=== PATIENT | female | born 1955 ===

== ENCOUNTER 2020-03-19 09:57 | Outpatient (REF) | payer MEDICARE, SELFPAY ==
[2020-03-19 13:48] LABS: Hematocrit 39.7 % (37-47); Mean Corpuscular HGB Conc 32.7 g/dl (31.0-35.0); Mean Corpuscular Hemoglobin 27.1 pg (27.0-33.0); Mean Corpuscular Volume 82.9 fL (80-98); Platelet Count 376 X10*3/uL (160-400); Red Blood Count 4.79 X10*6/uL (4.20-5.50); Red Cell Distribution Width 14.3 % (11.0-16.0)
[2020-03-19 14:22] LABS: Alanine Aminotransferase 18 U/L (0-31); Albumin Level 4.3 g/dL (3.5-5.0); Alkaline Phosphatase 100 U/L (39-117); Aspartate Amino Transferase 33 U/L (5-31); Bilirubin Direct 0.3 mg/dL (0.0-0.5); Bilirubin Total 0.7 mg/dL (0.0-1.0); Lipase 15 U/L (8-78); Total Protein 7.5 g/dL (6.5-8.0)
== END 2020-03-19 09:58 | disposition home or self-care (01) ==
LOC: HO.10HDL 09:57
PROVIDERS: Visit Provider Internal Medicine Gastroenterology
DX: R10.84 Generalized abdominal pain (principal)
CPT/HCPCS: 36415; 80076; 83690; 85027

== ENCOUNTER 2020-03-23 09:00 | Day surgery (SDC) | payer MEDICARE, SELFPAY ==
--- NOTE | 2020-03-22 12:24 | HO.ANESPROP2 ---
Documented by User: Rashmi Ballesteros 03/22/20 12:25 HPI - Anesthesia Eval Consult details Narrative: 64yo F for Upper Endoscopy and Colonoscopy [facility] Past Medical History Medical History No significant past medical history Surgical History Surgical History History of arthroplasty of right shoulder Social History Social History Smoking Status: Former smoker Smoked in Last 30 Days: No Use of substances other than those prescribed or required for medical reasons: No Advance Directives: No Advance Directives Information Provided: Yes Recently lost weight without trying: No Meds Allergies Allergy/AdvReac Type Severity Reaction Status Date / Time No Known Allergies Allergy Unverified 12/18/19 19:51 [No Known Allergies*] Home Medications Medication Instructions Recorded Confirmed Type No Known Home Meds 03/22/20 03/22/20 History Exam Exam Date and Time: March 22, 2020 1224 Pertinent Lab Results Pertinent Lab Results: Laboratory Tests 03/19/20 10:18 WBC 11.0 H Hgb 13.0 Hct 39.7 Plt Count 376 Assessment and Plan Assessment Anesthesia Assessment: Chart Reviewed Documented by User: Estefani Meeks 03/23/20 10:22 [facility] Past Medical History Medical History No significant past medical history Surgical History Surgical History History of arthroplasty of right shoulder Social History Social History Smoking Status: Former smoker Smoked in Last 30 Days: No Use of substances other than those prescribed or required for medical reasons: No Advance Directives: No Advance Directives Information Provided: Yes Recently lost weight without trying: No Meds Allergies Allergy/AdvReac Type Severity Reaction Status Date / Time No Known Allergies Allergy Unverified 12/18/19 19:51 [No Known Allergies*] Home Medications Medication Instructions Recorded Confirmed Type No Known Home Meds 03/22/20 03/22/20 History Exam Airway Mallampati Class: I TM Dist: >3cm Neck ROM: Full Loose/Missing/Broken Teeth: No Heart: RRR Lungs: CTA Assessment and Plan Assessment Anesthesia Assessment: Anesthesia Plan Discussed and Chart Reviewed Final Anesthetic Review NPO: Yes ASA Class: II Final Preanesthetic Review: Meds/Allgs Chart Reviewed, Consent Obtained/Reviewed and Anes Risks/Benef Reviewed Patient Risk: Low Procedure Risk: Intermediate Anesthetic Plan Anesthetic Plan: MAC: Disposition: Standard PACU
--- NOTE | 2020-03-22 19:16 | PM.EVENT ---
Event Note Date of Service: 03/22/20 Event Note: Scheduled for an EGD and Colonoscopy on 03/23/20 for decreased PO intake, weight loss and rectal bleeding Pt states she is on a liquid diet since last sunday - just had 3 tablespoonful of rice. Took dulcolax and had vomiting/dry heaves. Took Miralax - about 40 ounces and had vomiting. Getting ready to take additional dulcolax. Last BM was an hour ago was very loose without any fecal matter. Pt was advised to continue clear liquids and try to take at least half of the Miralax prep Can consider giving her an enema on arrival
[2020-03-23 09:43] VITALS: BMI 28.5
[2020-03-23 09:49] VITALS: BP 148/79; PULSE 77; RESP 16; TEMP 36.2; O2SAT 97
[2020-03-23] MEDS: Lactated Ringers 1,000 ML 100 ML IVCONT (10:03)
--- NOTE | 2020-03-23 10:05 | PC.NURSE ---
PATIENT RIGHT HAND STARTED A HEMATOMA FROM IV INSERTION WITH BRUISING NO INFILTRATION. APPLIED ICE PACK.
--- NOTE | 2020-03-23 10:22 | P.CONAN_ITS ---
[facility] Past Medical History Medical History No significant past medical history Surgical History Surgical History History of arthroplasty of right shoulder Social History Social History Smoking Status: Former smoker Smoked in Last 30 Days: No Use of substances other than those prescribed or required for medical reasons: No Advance Directives: No Advance Directives Information Provided: Yes Recently lost weight without trying: No Meds Allergies Allergy/AdvReac Type Severity Reaction Status Date / Time No Known Allergies Allergy Unverified 12/18/19 19:51 [No Known Allergies*] Home Medications Medication Instructions Recorded Confirmed Type No Known Home Meds 03/22/20 03/22/20 History Exam Exam Date and Time: March 23, 2020 1022 Height,Weight and Vital Signs: Height 5 ft 4 in Weight 75.296 kg Last Vital Signs Temp 97.2 F 03/23/20 09:49 Pulse 77 03/23/20 09:49 Resp 16 03/23/20 09:49 BP 148/79 H 03/23/20 09:49 Pulse Ox 97 03/23/20 09:49 Airway Mallampati Class: I TM Dist: >3cm Loose/Missing/Broken Teeth: No Heart: RRR Lungs: CTA Assessment and Plan Assessment Anesthesia Assessment: Anesthesia Plan Discussed and Chart Reviewed Final Anesthetic Review NPO: Yes ASA Class: II Final Preanesthetic Review: Meds/Allgs Chart Reviewed, Consent Obtained/Reviewed and Anes Risks/Benef Reviewed Patient Risk: Low Procedure Risk: Intermediate Anesthetic Plan Anesthetic Plan: MAC: Disposition: Standard PACU
--- NOTE | 2020-03-23 10:39 | MHC.SHP ---
Pre-Procedural Eval Section A The patient is an INPATIENT: No Changes since office visit: No Cold of Flu in the past 2 weeks, No New Medical Problems, No Changes in Medication and No Patient answered all questions The History & Physical has been completed within 30 days and I have reviewed it.: Yes Section B Chief Complaint: abdominal pain,weight loss Allergies: Allergies Allergy/AdvReac Type Severity Reaction Status Date / Time No Known Allergies Allergy Unverified 12/18/19 19:51 [No Known Allergies*] Plan I have reviewed the history and physical and performed a pertinent physical examination on my patient. No changes have occurred unless specified.
[2020-03-23 11:14] VITALS: BP 113/63; PULSE 80; RESP 16; TEMP 36.1; O2SAT 99
--- NOTE | 2020-03-23 11:18 | PM.OP ---
Brief Operative Note Date of Service: 03/23/20 Pre-op diagnosis: ABDOMINAL PAIN WEIGHT LOSS Post-op diagnosis: same (EROSIVE GASTRITIS, COLON POLYP) Procedure: EGD/COLONOSCOPY Surgeon: Julien Jordan Anesthesia: MAC Estimated blood loss (mL): 5 Pathology: other (BIOPSIES EGJ, ANTRUM, DUODENUM, POLYP CECUM) Condition: stable
[2020-03-23 11:29] VITALS: BP 128/75; PULSE 80; RESP 13; TEMP 36.1; O2SAT 97
--- NOTE | 2020-03-23 11:36 | OP_ITS ---
SURGEON: Julien Jordan MD INDICATIONS: Abdominal pain and weight loss. PREOPERATIVE DIAGNOSIS: POSTOPERATIVE DIAGNOSIS: PROCEDURE PERFORMED: 1. Upper endoscopy with biopsy. 2. Colonoscopy to the terminal ileum with biopsy. ESTIMATED BLOOD LOSS: COMPLICATIONS: ANESTHESIA: ASSISTANTS: SPECIMENS: MEDICATIONS: Monitored anesthesia care. DESCRIPTION OF PROCEDURE: History and physical performed. The risks and benefits of the procedure were explained to the patient. Informed consent was obtained. The patient was placed in the left lateral decubitus position. A digital rectal exam was performed prior to the colonoscopy. The Olympus video gastroscope was introduced into the esophagus, stomach, and duodenum. Examination was performed and the scope was removed. She was repositioned for colonoscopy. Digital rectal exam was performed and was found to be normal. The Olympus pediatric video colonoscope was introduced into the rectum and advanced to the cecum without difficulty. The cecum was identified by transillumination, palpation, and identification of ileocecal valve. Examination was performed and the scope was removed. She tolerated both procedures well and was taken to recovery area in stable condition. FINDINGS: UPPER ENDOSCOPY: Esophagus: The esophagus was normal. Biopsies were obtained from the EG junction. There was no esophagitis. Stomach: The stomach showed antral erosions with gastritis. Biopsies were obtained from the antrum. Duodenum: The bulb and second portion were normal. Biopsies were obtained from the second portion. COLONOSCOPY: The terminal ileum was normal. The visualized colonic mucosa was within normal limits without evidence of masses or ulcers. A single polyp in the cecum measuring less than 5 mm was removed with biopsy forceps. No other polyps were identified. Retroflexed examination showed internal hemorrhoids that were moderately large. The quality of the prep was good. IMPRESSION: 1. Erosive gastritis. 2. Colon polyp. RECOMMENDATION: Follow up the biopsy results. MD NELLY Erickson/SHELDON / [phone]
--- NOTE | 2020-03-23 11:39 | HO.POSTANES ---
Post Anesthesia Evaluation Post Anesthesia Evaluation Vital Signs: Vital Signs Temp Pulse Resp BP Pulse Ox 03/23/20 11:29 97 F 80 13 128/75 97 03/23/20 11:14 97 F 80 16 113/63 99 03/23/20 09:49 97.2 F 77 16 148/79 H 97 Anesthesia: Monitored Mental Status: Awake Pain Control: Satisfactory Nausea/Vomiting: None Hydration: Adequate Anesthesia-Related Issues: No Anes. Related Issues
== END 2020-03-23 12:15 | disposition home or self-care (01) ==
PROVIDERS: Visit Provider Internal Medicine Gastroenterology
PROC: (CPT 45380; principal; 2020-03-23 11:10)
DX: D12.0 Benign neoplasm of cecum (principal); K64.8 Other hemorrhoids; R63.4 Abnormal weight loss; K29.60 Other gastritis without bleeding; R10.84 Generalized abdominal pain
CPT/HCPCS: 45380; 43239; 88305; 88342

== ENCOUNTER 2020-10-14 14:23 | Outpatient (REF) | payer MEDICARE, SELFPAY ==
--- NOTE | ~2020-10-14 | US_ITS ---
EXAMINATION: US ABDOMEN COMPLETE CLINICAL INFORMATION: Right upper quadrant pain. COMPARISON: None TECHNIQUE: Real-time imaging of the abdominal viscera. FINDINGS: PANCREAS: There is a 6 mm echogenic focus in the neck of the pancreas questionable for a calcification. Pancreas is otherwise unremarkable. ABDOMINAL AORTA: The proximal, mid, and distal segments are normal in caliber. INFERIOR VENA CAVA: Visualized portions are normal. LIVER: Normal. The liver contour is normal. Parenchymal echogenicity is normal. No focal hepatic lesion. There is no intrahepatic biliary duct dilatation seen. GALLBLADDER: Normal. The gallbladder is physiologically distended without evidence of stones, sludge, polyps, wall thickening or pericholecystic fluid. COMMON BILE DUCT: Normal in caliber measuring 0.6 cm in diameter. RIGHT KIDNEY: There is a 4 mm echogenic density in the upper pole questionable for a stone. No hydronephrosis. The kidney measures 10.1 cm in maximum dimension. LEFT KIDNEY: There is a 1 cm cyst in the midpole. No hydronephrosis or renal calculi. The kidney measures 10.1 cm in maximum dimension. SPLEEN: Normal. The spleen measures 9.8 cm in maximum dimension. FREE FLUID: None. US/US abdomen complete IMPRESSION: 6 mm echogenic focus in the neck of the pancreas questionable for calcification. Question right renal stone. Small left renal cyst.
[2020-10-14 16:36] LABS: MANUAL DIFF FLAG NO
[2020-10-14 16:39] LABS: Basophils Absolute Auto 0.1 X10*3/uL (0.0-0.2); Basophils Percent Auto 0.9 % (0-2); Eosinophils Absolute Auto 0.2 X10*3/uL (0.0-0.4); Eosinophils Percent Auto 2.4 % (0-4); Hematocrit 38.7 % (37-47); Hemoglobin 12.3 g/dl (12.0-16.0); Imm Gran Abs Auto 0.02 X10*3/uL (0.00-0.03); Imm Gran Pct Auto 0.2 % (0.0-0.4); Lymphocytes Absolute Auto 2.3 X10*3/uL (1.2-4.9); Lymphocytes Percent Auto 27.4 % (20-40); Mean Corpuscular HGB Conc 31.8 g/dl (31.0-35.0); Mean Corpuscular Hemoglobin 27.3 pg (27.0-33.0); Mean Corpuscular Volume 85.8 fL (80-98); Mean Platelet Volume 10.7 fL (9.4-12.3); Monocytes Absolute Auto 0.6 X10*3/uL (0.1-1.2); Monocytes Percent Auto 7.4 % (2-11); Neutrophils Absolute Auto 5.1 X10*3/uL (2.0-8.3); Neutrophils Percent Auto 61.7 % (45-73); Platelet Count 321 X10*3/uL (160-400); Red Blood Count 4.51 X10*6/uL (4.20-5.50); Red Cell Distribution Width 13.7 % (11.0-16.0); White Blood Count 8.2 X10*3/uL (4.8-10.8)
[2020-10-14 17:22] LABS: Alanine Aminotransferase 10 U/L (0-31); Albumin Level 3.9 g/dL (3.5-5.0); Alkaline Phosphatase 94 U/L (39-117); Aspartate Amino Transferase 18 U/L (5-31); Bilirubin Direct 0.2 mg/dL (0.0-0.5); Bilirubin Total 0.6 mg/dL (0.0-1.0); Lipase 11 U/L (8-78); Total Protein 6.9 g/dL (6.5-8.0)
== END 2020-10-14 14:24 | disposition home or self-care (01) ==
LOC: HO.HMGCX 14:23
PROVIDERS: Visit Provider Internal Medicine Gastroenterology
DX: R10.11 Right upper quadrant pain (principal)
CPT/HCPCS: 36415; 76700; 80076; 83690; 85025

== ENCOUNTER 2021-04-11 22:51 | Emergency (ER) | payer MEDICARE, SELFPAY ==
--- NOTE | ~2021-04-11 | XR_ITS ---
EXAMINATION: XR CHEST CLINICAL INFORMATION: Palpitations COMPARISON: None TECHNIQUE: Frontal view of the chest was obtained. FINDINGS: No significant abnormality is noted involving the heart, lungs, mediastinum, bony thorax or soft tissues. XR/XR chest 1V IMPRESSION: Unremarkable examination.
--- NOTE | 2021-04-11 22:52 | ECG_ITS ---
Test Reason : palpatations Blood Pressure : / mmHG Vent. Rate : 076 BPM Atrial Rate : 076 BPM P-R Int : 158 ms QRS Dur : 112 ms QT Int : 424 ms P-R-T Axes : 075 -08 055 degrees QTc Int : 477 ms Normal sinus rhythm Minimal voltage criteria for LVH, may be normal variant ( [employer] product ) Borderline ECG No previous ECGs available Referred By: Generic ED Physician Electronically Signed By:TARYN EATON
[2021-04-11 23:20] VITALS: BP 183/88; PULSE 80; RESP 20; TEMP 35.9; O2SAT 97; BMI 29.2
[2021-04-11 23:51] LABS: MANUAL DIFF FLAG NO
[2021-04-11 23:52] LABS: Basophils Percent Auto 0.6 % (0-2); Eosinophils Absolute Auto 0.1 X10*3/uL (0.0-0.4); Eosinophils Percent Auto 1.8 % (0-4); Hematocrit 40.1 % (37.0-47.0); Hemoglobin 13.3 g/dl (12.0-16.0); Imm Gran Abs Auto 0.01 X10*3/uL (0.00-0.03); Imm Gran Pct Auto 0.2 % (0.0-0.4); Lymphocytes Absolute Auto 2.5 X10*3/uL (1.2-4.9); Lymphocytes Percent Auto 45.7 % (20-40); Mean Corpuscular HGB Conc 33.2 g/dl (31.0-35.0); Mean Corpuscular Hemoglobin 27.5 pg (27.0-33.0); Mean Corpuscular Volume 82.9 fL (80.0-98.0); Mean Platelet Volume 9.7 fL (9.4-12.3); Monocytes Absolute Auto 0.6 X10*3/uL (0.1-1.2); Monocytes Percent Auto 11.8 % (2-11); Neutrophils Absolute Auto 2.2 x10*3/uL (2.0-8.3); Neutrophils Percent Auto 39.9 % (45-73); Platelet Count 277 X10*3/uL (160-400); Red Blood Count 4.84 X10*6/uL (4.20-5.50); Red Cell Distribution Width 13.3 % (11.0-16.0); White Blood Count 5.4 X10*3/uL (4.8-10.8)
[2021-04-12 00:05] LABS: Anion Gap 13 (12-20); Blood Urea Nitrogen 19 mg/dL (9-16); COVID-19 Test Positive (Negative); Carbon Dioxide 28 mmol/L (22-29); Chloride 101 mmol/L (96-108); Creatinine Clr Calc Pharmacy 30.1; Estimated Glomerular Filt Rate 29; Glucose Random 120 mg/dL (60-115); Potassium 3.6 mmol/L (3.3-5.1); Sodium 138 mmol/L (135-145)
[2021-04-12 00:12] LABS: Troponin-I High Sensitivity 17.5 ng/L (<3.5-17.0)
== END 2021-04-12 01:53 | disposition left against medical advice (07) ==
PROVIDERS: Emergency Provider Emergency Medicine
DX: U07.1 COVID-19 (principal); R00.2 Palpitations
CPT/HCPCS: 36415; 71045; 80048; 84484; 85025; 87635; 93005; 99283; 99284

== ENCOUNTER 2021-06-07 10:28 | Outpatient (REF) | payer MEDICARE, SELFPAY ==
--- NOTE | ~2021-06-07 | MM_ITS ---
EXAMINATION: MM SCREENING DIGITAL BREAST TOMOSYNTHESIS, BILATERAL CLINICAL INFORMATION: Screening. Asymptomatic. The lifetime risk of breast cancer based on the Tyrer-Cuzick Model is 6%. COMPARISON: Outside breast imaging: mammography 04/09/2019, 06/19/2018, 05/28/2018 and targeted left breast ultrasound 06/19/2018 and 04/09/2019 ([facility], [place]). TECHNIQUE: Digital breast tomosynthesis is performed in both the craniocaudal and mediolateral oblique views along with computer-aided detection (CAD). Synthesized 2D images are generated from the tomosynthesis. FINDINGS: There are scattered areas of fibroglandular density (ACR BI-RADS breast composition Category b). There are no significant masses, abnormal calcifications, or other abnormalities. Parenchymal pattern is similar to prior studies. There is no developing density or architectural abnormality. The complicated cyst left retroareolar region has resolved. The axilla and skin contours are unremarkable. No significant changes. MM/MM tomosynthesis screening BI IMPRESSION: No mammographic evidence of malignancy. ASSESSMENT: BI-RADS 2: Benign RECOMMENDATION: Routine annual mammography screening. This patient's information was entered into a reminder system with a target due date for their next mammogram.
[2021-06-07 13:37] LABS: Cholesterol 281 mg/dL; HDL Cholesterol 39 mg/dL; LDL Cholesterol Calculated 176 mg/dl; Triglycerides 330 mg/dL
== END 2021-06-07 10:29 | disposition home or self-care (01) ==
LOC: HO.MAMMO 10:28
PROVIDERS: Visit Provider Internal Medicine
DX: Z00.00 Encounter for general adult medical examination without abnormal findings (principal); Z12.31 Encounter for screening mammogram for malignant neoplasm of breast; R10.11 Right upper quadrant pain
CPT/HCPCS: 36415; 77063; 77067; 80061

== ENCOUNTER 2021-09-23 09:36 | Outpatient (REF) | payer MEDICARE, SELFPAY ==
[2021-09-23 10:40] LABS: Alanine Aminotransferase 16 U/L (0-31); Albumin Level 4.1 g/dL (3.5-5.0); Alkaline Phosphatase 103 U/L (39-117); Anion Gap 11 (12-20); Aspartate Amino Transferase 28 U/L (5-31); Bilirubin Total 0.6 mg/dL (0.0-1.0); Blood Urea Nitrogen 16 mg/dL (9-16); Calcium 9.4 mg/dL (8.4-10.2); Carbon Dioxide 29 mmol/L (22-29); Chloride 105 mmol/L (96-108); Cholesterol 262 mg/dL; Estimated Glomerular Filt Rate 49; Glucose Fasting 112 mg/dL (60-99); HDL Cholesterol 41 mg/dL; LDL Cholesterol Calculated 184 mg/dl; Potassium 5.2 mmol/L (3.3-5.1); Sodium 140 mmol/L (135-145); Total Protein 7.4 g/dL (6.5-8.0); Triglycerides 186 mg/dL
== END 2021-09-23 09:37 | disposition home or self-care (01) ==
LOC: HO.LAB 09:36
PROVIDERS: PCP Internal Medicine; Visit Provider Internal Medicine
DX: E78.2 Mixed hyperlipidemia (principal)
CPT/HCPCS: 36415; 80053; 80061

== ENCOUNTER → 2021-11-22 12:48 | Outpatient (BNVA) | payer MEDICARE, SELFPAY | PROVIDERS: PCP Internal Medicine; Visit Provider Surgery Vascular Surgery | DX: I83.11 Varicose veins of right lower extremity with inflammation (principal) | CPT/HCPCS: 99202 ==

== ENCOUNTER 2021-12-29 13:06 | Outpatient (REF) | payer MEDICARE, SELFPAY ==
--- NOTE | ~2021-12-29 | US_ITS ---
EXAMINATION: US PELVIS CLINICAL INFORMATION: Early satiety with abdominal distention. COMPARISON: None TECHNIQUE: Ultrasound of the pelvis is performed using both transabdominal and transvaginal transducers along with Doppler. Transvaginal imaging is performed due to inadequate visualization transabdominally. FINDINGS: Uterus: The uterus is anteverted, anteflexed and measures 6.6 cm in length, 2.0 cm in AP and 3.9 cm in transverse dimension. The double wall endometrial thickness is 0.4 cm. The uterus is smooth in contour and has heterogeneous echogenicity. No visible fibroid. Adnexa: Both ovaries are visualized. There is normal color flow to the adnexa. There is no ovarian torsion. There is no pelvic ascites or fluid collection. Right ovary measures 1.8 x 1.1 x 1.4 cm and volume 1.5 mL. There are small scattered calcifications. Left ovary measures 1.8 x 1.5 x 1.2 cm and volume 2.3 mL. US/US pelvic and transvaginal IMPRESSION: Heterogeneous uterus but no focal lesion seen. Punctate calcification in the right ovary. Otherwise both ovaries are unremarkable. There is no free fluid in the cul-de-sac.
--- NOTE | ~2021-12-29 | MM_ITS ---
EXAMINATION: BONE DENSITOMETRY CLINICAL INDICATION: Asymptomatic menopausal state. COMPARISON: None (current study represents initial baseline exam). TECHNIQUE: Using a [employer] DXA System (software version: 13.1) manufactured by [employer], dual-energy x-ray absorptiometry was performed of the lumbar spine and left hip. The images are of good technical quality. Summary results are attached. FINDINGS: AP SPINE L1-L3 (excluding L4): The data of L1-L4 has been changed to exclude the L4 vertebral body because degenerative changes at these levels may cause overestimation of the lumbar spine density. BMD 1.345 g/cm2, Z-score 2.7, T-score 1.5, normal. LEFT FEMUR, NECK: BMD 0.957 g/cm2, Z-score 0.7, T-score -0.6, normal. LEFT FEMUR, TOTAL: BMD 1.072 g/cm2, Z-score 1.5, T-score 0.5, normal. IDENTIFIED RISK FACTORS: Low calcium intake, menopause. HISTORY OF FRACTURE: None listed. MEDICATIONS: Multivitamin. MM/XR DEXA axial skeleton IMPRESSION: 1. DIAGNOSIS: Normal bone density based on the lowest T-score value of -0.6 in the femoral neck applying World Health Organization criteria. 2. 10-YEAR FRACTURE RISK PREDICTION, FRAX: According to the guidelines, FRAX calculation should only be performed on patients in the osteopenia bone density category. Therefore, FRAX was not performed on this patient. 3. Treatment Recommendations: NOF guidelines recommend consideration for treatment in postmenopausal women and men age 50 and older presenting with the following: -A hip or vertebral (clinical or morphometric) fracture. -T-score less than or equal to -2.5 at the femoral neck or spine after appropriate evaluation to exclude secondary causes. -Low bone mass at the hip or spine and a 10-year fracture probability by FRAX of greater than or equal to 3% for hip fracture or greater than or equal to 20% for major osteoporotic fracture based on the [place] adapted WHO algorithm. 4. Other Recommendations: All treatment decisions require clinical judgment and consideration of individual patient factors, including patient preferences, comorbidities, previous drug use, risk factors not captured in the FRAX model (e.g. frailty, falls, vitamin D deficiency, increased bone turnover, interval significant decline in bone density) and possible under or overestimation of fracture risk by FRAX. FUTURE SCAN RECOMMENDATION: People with diagnosed cases of osteoporosis or at high risk for fracture should have regular bone mineral density tests. For patients eligible for Medicare, routine testing is allowed once every 2 years. The testing frequency can be increased to one year for patients who have rapidly progressing disease, those who are receiving or discontinuing medical therapy to restore bone mass, or have additional risk factors.
== END 2021-12-29 13:07 | disposition home or self-care (01) ==
LOC: HO.US 13:06
PROVIDERS: Visit Provider Obstetrics & Gynecology
DX: Z13.820 Encounter for screening for osteoporosis (principal); Z78.0 Asymptomatic menopausal state; R68.81 Early satiety
CPT/HCPCS: 76830; 76856; 77080

== ENCOUNTER → 2022-01-04 10:01 | Outpatient (BNVA) | payer MEDICARE, SELFPAY | PROVIDERS: PCP Internal Medicine; Referring Provider Internal Medicine; Visit Provider Internal Medicine Cardiovascular Disease | DX: R00.2 Palpitations (principal); R07.89 Other chest pain; E78.5 Hyperlipidemia, unspecified | CPT/HCPCS: 93005; 99202 ==

== ENCOUNTER 2022-01-18 06:26 | Emergency (ER) | payer MEDICARE, SELFPAY ==
--- NOTE | 2022-01-18 06:35 | ECG_ITS ---
Test Reason : HYPERTENSION Blood Pressure : / mmHG Vent. Rate : 083 BPM Atrial Rate : 083 BPM P-R Int : 156 ms QRS Dur : 100 ms QT Int : 392 ms P-R-T Axes : 068 -08 055 degrees QTc Int : 460 ms Normal sinus rhythm Normal ECG When compared with ECG of 11-APR-2021 23:37, No significant change was found Referred By: Generic ED Physician Electronically Signed By:SARAHI GALLEGOS MD
[2022-01-18 07:05] LABS: Hematocrit 40.4 % (37.0-47.0); Hemoglobin 13.3 g/dl (12.0-16.0); Mean Corpuscular HGB Conc 32.9 g/dl (31.0-35.0); Mean Corpuscular Hemoglobin 27.1 pg (27.0-33.0); Mean Corpuscular Volume 82.4 fL (80.0-98.0); Mean Platelet Volume 9.8 fL (9.4-12.3); Platelet Count 316 X10*3/uL (160-400); Red Cell Distribution Width 13.9 % (11.0-16.0); White Blood Count 8.9 X10*3/uL (4.8-10.8)
[2022-01-18 07:21] LABS: Alanine Aminotransferase 19 U/L (0-31); Albumin Level 4.3 g/dL (3.5-5.0); Alkaline Phosphatase 101 U/L (39-117); Anion Gap 16 (12-20); Aspartate Amino Transferase 23 U/L (5-31); Bilirubin Total 0.5 mg/dL (0.0-1.0); Blood Urea Nitrogen 13 mg/dL (9-16); Calcium 9.4 mg/dL (8.4-10.2); Carbon Dioxide 25 mmol/L (22-29); Chloride 105 mmol/L (96-108); Estimated Glomerular Filt Rate 55; Glucose Random 128 mg/dL (60-115); Potassium 4.3 mmol/L (3.3-5.1); Sodium 142 mmol/L (135-145); Total Protein 7.5 g/dL (6.5-8.0)
[2022-01-18 07:29] VITALS: BP 151/94; PULSE 87; RESP 16; TEMP 37.1; O2SAT 99; BMI 30.1
== END 2022-01-18 10:41 | disposition left against medical advice (07) ==
PROVIDERS: Emergency Provider Emergency Medicine; PCP Internal Medicine
DX: R00.2 Palpitations (principal); I10 Essential (primary) hypertension; R51.9 Headache, unspecified; E78.5 Hyperlipidemia, unspecified
CPT/HCPCS: 36415; 80053; 85027; 93005; 99283

== ENCOUNTER 2022-01-18 09:14 | Outpatient (REF) | payer MEDICARE, SELFPAY ==
[2022-01-18 10:09] LABS: Cholesterol 273 mg/dL; HDL Cholesterol 44 mg/dL; LDL Cholesterol Calculated 174 mg/dl; Triglycerides 276 mg/dL
[2022-01-18 10:10] LABS: Alanine Aminotransferase 19 U/L (0-31); Albumin Level 4.4 g/dL (3.5-5.0); Alkaline Phosphatase 102 U/L (39-117); Anion Gap 16 (12-20); Aspartate Amino Transferase 22 U/L (5-31); Bilirubin Total 0.5 mg/dL (0.0-1.0); Blood Urea Nitrogen 13 mg/dL (9-16); Calcium 9.8 mg/dL (8.4-10.2); Carbon Dioxide 26 mmol/L (22-29); Chloride 104 mmol/L (96-108); Estimated Glomerular Filt Rate 52; Glucose Random 112 mg/dL (60-115); Potassium 4.7 mmol/L (3.3-5.1); Sodium 141 mmol/L (135-145); Total Protein 7.7 g/dL (6.5-8.0)
== END 2022-01-18 09:15 | disposition home or self-care (01) ==
LOC: HO.LAB 09:14
PROVIDERS: PCP Internal Medicine; Visit Provider Internal Medicine
DX: E78.2 Mixed hyperlipidemia (principal); I10 Essential (primary) hypertension; R07.89 Other chest pain; Z91.14 Patient's other noncompliance with medication regimen
CPT/HCPCS: 36415; 80053; 80061

== ENCOUNTER → 2022-01-23 07:15 | Outpatient (REF) | payer MEDICARE, SELFPAY ==
--- NOTE | 2022-01-23 07:21 | HM_ITS ---
Conclusion: 1. Patient was monitored for total period of 2 days and 23 hours 2. Baseline was normal sinus rhythm with average heart rate of 75 beats per minute 3. No significant pauses or bradycardia noted 4. Very rare ectopy noted 5. Patient reported events correlated with normal sinus rhythm MTDD
--- NOTE | 2022-01-23 07:21 | CA_ITS ---
Acquisition Time: 2022-01-23 08:10:10 Total Exercise Time: 00:06:30 Test Indications: Palpitations Medications: SEE CHART Protocol: MIO Max HR: 157 BPM 102% of Pred: 153 BPM Max BP: 240/088 mmHG Max Work Load: 7.7 METS Exercise stress test with exercise 6 min 30 sec of Mio protocol, achieving 102% MPHR, with moderate sob, no chest discomfort, with isolated PACs, with hypertensive response to exercise with max BP 240/88, without EKG changes meeting criteria for ischemia. In recovery her breathing normalized and BP returned to 162/88. Baseline BP was 152/82, Test reviewed with Dr Saavedra Referred By: Eric Saavedra Overread By: LAMBERT MACHADO
== END ==
LOC: HO.CARD 07:15
PROVIDERS: PCP Internal Medicine; Visit Provider Internal Medicine Cardiovascular Disease
DX: R07.89 Other chest pain (principal); R00.2 Palpitations
CPT/HCPCS: 93017; 93242

== ENCOUNTER → 2022-02-08 14:21 | Outpatient (BNVA) | payer MEDICARE, SELFPAY | PROVIDERS: PCP Internal Medicine; Visit Provider Internal Medicine Cardiovascular Disease | DX: I10 Essential (primary) hypertension (principal); R00.2 Palpitations; R51.9 Headache, unspecified; E78.5 Hyperlipidemia, unspecified | CPT/HCPCS: 99212 ==

== ENCOUNTER → 2022-03-01 07:54 | Outpatient (REF) | payer MEDICARE, SELFPAY ==
--- NOTE | ~2022-03-01 | NM_ITS ---
EXAMINATION: BILIARY TRACT IMAGING STUDY WITH CCK CLINICAL INFORMATION: Right upper quadrant pain.. COMPARISON: No previous biliary scan is available for comparison.. Abdominal ultrasound dated 10/14/2020 is the most recent relevant study for comparison. TECHNIQUE: Serial gamma scintillation camera images were obtained over the abdomen for a total observation period of 90 minutes following the intravenous administration of 5.0 mCi Tc-99m Mebrofenin. FINDINGS: There is good concentration of activity in the liver by 5 minutes post injection. Biliary activity is visualized by 15 minutes. The gallbladder is well visualized by 25 minutes. Small bowel is well visualized by 57 minutes. At 60 minutes post radiopharmaceutical injection, a 30-minute infusion of 1.5 micrograms Sincalide was then begun and an additional 40 minutes of images were obtained. There is good emptying of the gallbladder. By the end of the study there is good clearance of activity from the liver and visualization of diffuse small bowel activity. The calculated gallbladder ejection fraction is 64% (normal gallbladder ejection fraction is greater than 35%). NM/NM hepatobiliary w pharm IMPRESSION: Visualization of the gallbladder is evidence of a patent cystic duct and strong evidence against the diagnosis of acute cholecystitis. The common bile duct is patent. Gallbladder emptying and ejection fraction are normal. Liver function appears normal.
== END ==
LOC: HO.NUCMED 07:54
PROVIDERS: PCP Internal Medicine; Visit Provider Internal Medicine Gastroenterology
DX: R10.11 Right upper quadrant pain (principal)
CPT/HCPCS: 78227; A9537; J2805

== ENCOUNTER → 2022-03-09 11:00 | Outpatient (BNVA) | payer MEDICARE, SELFPAY | PROVIDERS: PCP Internal Medicine; Visit Provider Obstetrics & Gynecology | DX: Z78.0 Asymptomatic menopausal state (principal); R68.81 Early satiety | CPT/HCPCS: 99212 ==

== ENCOUNTER 2022-04-28 09:34 | Outpatient (REF) | payer MEDICARE, SELFPAY ==
[2022-04-28 11:39] LABS: Cholesterol 277 mg/dL; HDL Cholesterol 37 mg/dL; LDL Cholesterol Calculated 195 mg/dl; Triglycerides 229 mg/dL
== END 2022-04-28 09:35 | disposition home or self-care (01) ==
LOC: HO.LAB 09:34
PROVIDERS: PCP Internal Medicine; Visit Provider Internal Medicine Cardiovascular Disease
DX: E78.5 Hyperlipidemia, unspecified (principal)
CPT/HCPCS: 36415; 80061

== ENCOUNTER 2022-04-29 22:46 | Emergency (ER) | payer MEDICARE, SELFPAY ==
--- NOTE | 2022-04-29 | ECG_ITS ---
Test Reason : CHEST PAIN Blood Pressure : / mmHG Vent. Rate : 088 BPM Atrial Rate : 088 BPM P-R Int : 154 ms QRS Dur : 096 ms QT Int : 382 ms P-R-T Axes : 072 016 067 degrees QTc Int : 462 ms Normal sinus rhythm Normal ECG When compared with ECG of 18-JAN-2022 06:42, No significant change was found Referred By: Generic ED Physician Electronically Signed By:TARYN EATON
[2022-04-29 23:03] VITALS: BP 159/86; PULSE 89; RESP 20; TEMP 36.8; O2SAT 97; BMI 30.9
--- NOTE | 2022-04-29 23:18 | ED_ITS ---
HPI - Chest Pain General Chief Complaint: Chest Pain Stated Complaint: Chest Pain Time Seen by Provider: 04/29/22 23:16 Source: patient Mode of arrival: ambulatory Limitations: no limitations History of Present Illness HPI narrative: Patient history of palpitation recurrent chest pain at multiple evaluation including visit to the [employer] office Holter monitoring and stress test within last 6 months was negative comes here for sudden onset of sharp pain left chest feels sharp pain no radiation of pain gets on movement and lying down no shortness of breath patient endoscopy in the past was negative has some chronic epigastric pain but no nausea vomiting no shortness of breath had palpitation earlier too. Pain is sharp in character Related Data Previous Rx's Medication Instructions Recorded carvedilol 3.125 mg tablet 3.125 mg PO BID #60 tabs 02/08/22 amlodipine 5 mg tablet 5 mg PO DAILY 90 days #90 tabs 04/13/22 atorvastatin 80 mg tablet 80 mg PO BEDTIME #60 tabs 04/28/22 ezetimibe 10 mg tablet 10 mg PO DAILY #60 tabs 04/28/22 Allergies Allergy/AdvReac Type Severity Reaction Status Date / Time No Known Allergies Allergy Verified 03/09/22 11:06 [No Known Allergies*] Review of Systems Review of Systems: Yes all other systems are reviewed and are negative [facility] Past Medical History Medical History No significant past medical history Surgical History History of arthroplasty of right shoulder History of post-sterilization tuboplasty Family History Family History Maternal Aunt Breast CA Brother Stroke Mother Stroke Social History Social History Alcohol intake: never Patient Tobacco Use Status: Never used Tobacco Smoked in Last 30 Days: No Use of substances other than those prescribed or required for medical reasons: No Advance Directives: No Advance Directives Information Provided: Yes Physical Exam Vital Signs: Vital Signs: Last Vital Signs Temp 98.2 F 04/29/22 23:19 Pulse 82 04/29/22 23:19 Resp 16 04/29/22 23:19 BP 151/71 H 04/29/22 23:19 Pulse Ox 98 04/29/22 23:19 O2 Del Method 04/29/22 23:19 BMI result Body Mass Index 30.9 Appearance: Alert. Oriented X3. No acute distress. Eyes: PERRLA, No Nystagmus ENT: Pharynx normal. Oral Mucosa moist Neck: Normal inspection. Neck supple. CVS: Normal heart rate and rhythm. Pulses normal. Tender to touch left 3rd intercostal space no murmur or rub or gallop Respiratory: No respiratory distress. Equal air entry bilateral, no wheezing/rales/rhonchi Abdomen: Soft and nontender. Bowel sounds are present, no mass palpable, no CVA tenderness Skin: Skin warm and dry. Normal skin color. Normal skin turgor. Extremities: No lower extremity edema. No calf tenderness Neuro: Oriented X 3. No motor deficit. Medical Decision Making Medical Decision Making [facility] Narrative: Patient atypical sharp left-sided chest pain likely costochondritis patient does not want any pain medication cardiac workup and EKG negative patient had detailed workup in the past which includes a stress test on 01/23/2022 and Holter monitoring which was negative discharge patient home advised to follow up with PCP Lab Data [facility] Lab Attestation statement: I reviewed the patient's lab results. 04/29/22 23:15 04/29/22 23:15 Labs: Lab Results 04/29/22 04/29/22 04/29/22 Range/Units 23:15 23:15 23:15 WBC 10.7 (4.8-10.8) X10*3/uL RBC 4.74 (4.20-5.50) X10*6/uL Hgb 13.1 (12.0-16.0) g/dl Hct 39.4 (37.0-47.0) % MCV 83.1 (80.0-98.0) fL MCH 27.6 (27.0-33.0) pg MCHC 33.2 (31.0-35.0) g/dl RDW 13.2 (11.0-16.0) % Plt Count 350 (160-400) X10*3/uL MPV 9.4 (9.4-12.3) fL Immature Gran % (Auto) 0.2 (0.0-0.4) % Neut % (Auto) 39.9 L (45-73) % Lymph % (Auto) 46.7 H (20-40) % [place] % (Auto) 7.7 (2-11) % Eos % (Auto) 4.6 H (0-4) % Baso % (Auto) 0.9 (0-2) % Lymph # (Auto) 5.0 H (1.2-4.9) X10*3/uL [place] # (Auto) 0.8 (0.1-1.2) X10*3/uL Eos # (Auto) 0.5 H (0.0-0.4) X10*3/uL Baso # (Auto) 0.1 (0.0-0.2) X10*3/uL Abs Immat Gran (auto) 0.02 (0.00-0.03) X10*3/uL Absolute Neuts (auto) 4.3 (2.0-8.3) x10*3/uL Absolute Nucleated RBC 0.000 (0.0-0.012) X10*3/uL Nucleated RBC % (auto) 0.0 (0.0-0.2) /100WBC Sodium 139 (135-145) mmol/L Potassium 4.4 (3.3-5.1) mmol/L Chloride 104 (96-108) mmol/L Carbon Dioxide 28 (22-29) mmol/L Anion Gap 11 L (12-20) BUN 14 (9-16) mg/dL Creatinine 1.05 (0.5-1.4) mg/dL Estim Creat Clear Calc 51.9 Estimated GFR 52 Random Glucose 108 (60-115) mg/dL Calcium 9.1 D (8.4-10.2) mg/dL Troponin I High Sens 4.8 (<3.5-17.0) ng/L Independent Interpretation I performed an independent interpretation of an: EKG Interpretation: Number sinus rhythm heart rate 88 beats per minute normal interval normal axis impression normal EKG Discharge Plan Discharge Clinical Impression: Costalchondritis Patient Disposition: Home, Self-Care Instructions: Costochondritis (ED) Additional Instructions: Take Tylenol/ibuprofen for pain The chest pain is likely inflammation cartilage Follow-up with Cardiology if any concerns Prescriptions: No Action amlodipine 5 mg tablet 5 mg PO DAILY 90 Days Qty: 90 3RF atorvastatin 80 mg tablet 80 mg PO BEDTIME Qty: 60 3RF ezetimibe 10 mg tablet 10 mg PO DAILY Qty: 60 3RF carvedilol 3.125 mg tablet 3.125 mg PO BID Qty: 60 3RF Rx Instructions: must administer with a meal/food
[2022-04-29 23:19] VITALS: BP 151/71; PULSE 82; RESP 16; TEMP 36.8; O2SAT 98
[2022-04-29 23:21] LABS: Basophils Absolute Auto 0.1 X10*3/uL (0.0-0.2); Basophils Percent Auto 0.9 % (0-2); Eosinophils Absolute Auto 0.5 X10*3/uL (0.0-0.4); Eosinophils Percent Auto 4.6 % (0-4); Hematocrit 39.4 % (37.0-47.0); Hemoglobin 13.1 g/dl (12.0-16.0); Imm Gran Abs Auto 0.02 X10*3/uL (0.00-0.03); Imm Gran Pct Auto 0.2 % (0.0-0.4); Lymphocytes Percent Auto 46.7 % (20-40); MANUAL DIFF FLAG NO; Mean Corpuscular HGB Conc 33.2 g/dl (31.0-35.0); Mean Corpuscular Hemoglobin 27.6 pg (27.0-33.0); Mean Corpuscular Volume 83.1 fL (80.0-98.0); Mean Platelet Volume 9.4 fL (9.4-12.3); Monocytes Absolute Auto 0.8 X10*3/uL (0.1-1.2); Monocytes Percent Auto 7.7 % (2-11); Neutrophils Absolute Auto 4.3 x10*3/uL (2.0-8.3); Neutrophils Percent Auto 39.9 % (45-73); Platelet Count 350 X10*3/uL (160-400); Red Blood Count 4.74 X10*6/uL (4.20-5.50); Red Cell Distribution Width 13.2 % (11.0-16.0); White Blood Count 10.7 X10*3/uL (4.8-10.8)
[2022-04-29 23:43] LABS: Anion Gap 11 (12-20); Blood Urea Nitrogen 14 mg/dL (9-16); Calcium 9.1 mg/dL (8.4-10.2); Carbon Dioxide 28 mmol/L (22-29); Chloride 104 mmol/L (96-108); Creatinine Clr Calc Pharmacy 51.9; Estimated Glomerular Filt Rate 52; Glucose Random 108 mg/dL (60-115); Potassium 4.4 mmol/L (3.3-5.1); Sodium 139 mmol/L (135-145)
[2022-04-29 23:48] LABS: Troponin-I High Sensitivity 4.8 ng/L (<3.5-17.0)
== END 2022-04-30 00:50 | disposition home or self-care (01) ==
PROVIDERS: Emergency Provider Internal Medicine; PCP Internal Medicine
DX: M94.0 Chondrocostal junction syndrome [Tietze] (principal); I10 Essential (primary) hypertension; E78.5 Hyperlipidemia, unspecified; Z79.02 Long term (current) use of antithrombotics/antiplatelets; Z79.899 Other long term (current) drug therapy
CPT/HCPCS: 36415; 80048; 84484; 85025; 93005; 99283; 99285

== ENCOUNTER 2022-06-21 09:14 | Outpatient (REF) | payer MEDICARE, SELFPAY ==
[2022-06-21 10:21] LABS: Cholesterol 160 mg/dL; HDL Cholesterol 40 mg/dL; LDL Cholesterol Calculated 97 mg/dl; Triglycerides 119 mg/dL
== END 2022-06-21 09:15 | disposition home or self-care (01) ==
LOC: HO.LAB 09:14
PROVIDERS: PCP Internal Medicine; Visit Provider Internal Medicine Cardiovascular Disease
DX: E78.5 Hyperlipidemia, unspecified (principal)
CPT/HCPCS: 36415; 80061

== ENCOUNTER → 2022-06-26 11:10 | Outpatient (BNVA) | payer MEDICARE, SELFPAY | PROVIDERS: PCP Internal Medicine; Referring Provider Internal Medicine; Visit Provider Internal Medicine Cardiovascular Disease | DX: I11.0 Hypertensive heart disease with heart failure (principal); E78.5 Hyperlipidemia, unspecified | CPT/HCPCS: 99212 ==

== ENCOUNTER 2022-06-30 08:28 | Outpatient (REF) | payer MEDICARE, SELFPAY ==
--- NOTE | ~2022-06-30 | XR_ITS ---
Examination: XR hand wrist LT, XR hand wrist RT Indication: M19.041 - Primary osteoarthritis, right hand Comparison: No pertinent prior studies are currently available for comparison. Technique: 4 views of each hand obtained Findings: Right: Bones are normal anatomic alignment with no acute fracture or dislocation noted. Significant arthritic changes are seen more so in the first carpometacarpal joint but to a lesser extent in the first MCP and IP joint spaces as well as in the second through fifth PIP and DIP joints. There is loss of joint space, subchondral sclerosis, and prominent osteophyte formation. Overall the appearance suggests a component more of osteoarthritis. No obvious erosive changes or bony destruction. No acute fracture or dislocation. Left: Bones are normal anatomic alignment with no acute fracture or dislocation. Again degenerative changes are seen more so on the first carpometacarpal joint but also seen in the first IP joint, second through fifth PIP and DIP joints. Again the pattern of arthritis suggests a joint space loss, prominent osteophyte formation and some subtle subchondral sclerosis more consistent with a component of underlying osteoarthritic changes. No bony erosions or destruction seen otherwise. XR/XR hand wrist LT Impression: Bilateral arthritic changes more so in the bilateral first carpometacarpal joints and to a lesser extent in the first MCP and IP joints bilaterally. Overall the constellation of findings is more suggestive of an osteoarthritic pattern
--- NOTE | ~2022-06-30 | XR_ITS ---
Examination: XR hand wrist LT, XR hand wrist RT Indication: M19.041 - Primary osteoarthritis, right hand Comparison: No pertinent prior studies are currently available for comparison. Technique: 4 views of each hand obtained Findings: Right: Bones are normal anatomic alignment with no acute fracture or dislocation noted. Significant arthritic changes are seen more so in the first carpometacarpal joint but to a lesser extent in the first MCP and IP joint spaces as well as in the second through fifth PIP and DIP joints. There is loss of joint space, subchondral sclerosis, and prominent osteophyte formation. Overall the appearance suggests a component more of osteoarthritis. No obvious erosive changes or bony destruction. No acute fracture or dislocation. Left: Bones are normal anatomic alignment with no acute fracture or dislocation. Again degenerative changes are seen more so on the first carpometacarpal joint but also seen in the first IP joint, second through fifth PIP and DIP joints. Again the pattern of arthritis suggests a joint space loss, prominent osteophyte formation and some subtle subchondral sclerosis more consistent with a component of underlying osteoarthritic changes. No bony erosions or destruction seen otherwise. XR/XR hand wrist RT Impression: Bilateral arthritic changes more so in the bilateral first carpometacarpal joints and to a lesser extent in the first MCP and IP joints bilaterally. Overall the constellation of findings is more suggestive of an osteoarthritic pattern
== END 2022-06-30 08:29 | disposition home or self-care (01) ==
LOC: HO.XRAY 08:28
PROVIDERS: PCP Internal Medicine; Visit Provider Student in an Organized Health Care Education/Training Program
DX: M19.041 Primary osteoarthritis, right hand (principal); M19.042 Primary osteoarthritis, left hand
CPT/HCPCS: 73110; 73130; 99202

== ENCOUNTER 2022-07-05 13:31 | Outpatient (REF) | payer MEDICARE, SELFPAY ==
--- NOTE | ~2022-07-05 | MM_ITS ---
EXAMINATION: MM SCREENING DIGITAL BREAST TOMOSYNTHESIS, BILATERAL CLINICAL INFORMATION: Screening. Asymptomatic. The lifetime risk of breast cancer based on the Tyrer-Cuzick Model is 4.9%. COMPARISON: Mammography: June 07, 2021 and studies dating back to June 25, 2014 TECHNIQUE: Digital breast tomosynthesis is performed in both the craniocaudal and mediolateral oblique views along with computer-aided detection (CAD). Synthesized 2D images are generated from the tomosynthesis. FINDINGS: There are scattered areas of fibroglandular density (ACR BI-RADS breast composition Category b). There are no significant masses, abnormal calcifications, or other abnormalities. MM/MM tomosynthesis screening BI IMPRESSION: No significant changes ASSESSMENT: BI-RADS 1: Negative RECOMMENDATION: Routine annual mammography screening. This patient's information was entered into a reminder system with a target due date for their next mammogram.
== END 2022-07-05 13:32 | disposition home or self-care (01) ==
LOC: HO.MAMMO 13:31
PROVIDERS: Visit Provider Internal Medicine
DX: Z12.31 Encounter for screening mammogram for malignant neoplasm of breast (principal)
CPT/HCPCS: 77063; 77067

== ENCOUNTER 2022-07-12 09:30 | Outpatient (REF) | payer MEDICARE, SELFPAY ==
[2022-07-12 09:50] LABS: MANUAL DIFF FLAG NO
[2022-07-12 10:06] LABS: Basophils Absolute Auto 0.1 X10*3/uL (0.0-0.2); Basophils Percent Auto 0.9 % (0-2); Eosinophils Absolute Auto 0.4 X10*3/uL (0.0-0.4); Eosinophils Percent Auto 5.7 % (0-4); Hematocrit 40.6 % (37.0-47.0); Hemoglobin 13.1 g/dl (12.0-16.0); Imm Gran Abs Auto 0.02 X10*3/uL (0.00-0.03); Imm Gran Pct Auto 0.3 % (0.0-0.4); Lymphocytes Absolute Auto 2.6 X10*3/uL (1.2-4.9); Lymphocytes Percent Auto 36.5 % (20-40); Mean Corpuscular HGB Conc 32.3 g/dl (31.0-35.0); Mean Corpuscular Hemoglobin 26.7 pg (27.0-33.0); Mean Corpuscular Volume 82.7 fL (80.0-98.0); Mean Platelet Volume 10.3 fL (9.4-12.3); Monocytes Absolute Auto 0.6 X10*3/uL (0.1-1.2); Monocytes Percent Auto 8.1 % (2-11); Neutrophils Absolute Auto 3.4 x10*3/uL (2.0-8.3); Neutrophils Percent Auto 48.5 % (45-73); Platelet Count 306 X10*3/uL (160-400); Red Blood Count 4.91 X10*6/uL (4.20-5.50); White Blood Count 7.1 X10*3/uL (4.8-10.8)
[2022-07-12 10:52] LABS: Alanine Aminotransferase 20 U/L (0-31); Albumin Level 3.9 g/dL (3.5-5.0); Alkaline Phosphatase 110 U/L (39-117); Anion Gap 12 (12-20); Aspartate Amino Transferase 22 U/L (5-31); Bilirubin Total 0.5 mg/dL (0.0-1.0); Blood Urea Nitrogen 10 mg/dL (9-16); C Reactive Protein 0.35 mg/dL (< or = 0.50); Calcium 9.4 mg/dL (8.4-10.2); Carbon Dioxide 29 mmol/L (22-29); Chloride 104 mmol/L (96-108); Cholesterol 242 mg/dL; Estimated Glomerular Filt Rate 58; Glucose Random 109 mg/dL (60-115); HDL Cholesterol 35 mg/dL; LDL Cholesterol Calculated 133 mg/dl; Potassium 4.8 mmol/L (3.3-5.1); Sodium 140 mmol/L (135-145); Total Protein 6.7 g/dL (6.5-8.0); Triglycerides 370 mg/dL
[2022-07-12 10:58] LABS: Erythrocyte Sedimentation Rate 16 MM/HR (0-20)
[2022-07-12 12:13] LABS: Rheumatoid Factor < 13.0 IU/mL (<15.0)
[2022-07-14 16:34] LABS: Cyclic Citrullinated Peptide <16 UNITS
== END 2022-07-12 09:31 | disposition home or self-care (01) ==
LOC: HO.LAB 09:30
PROVIDERS: Internal Medicine Cardiovascular Disease; PCP Internal Medicine; Visit Provider Student in an Organized Health Care Education/Training Program
DX: E78.5 Hyperlipidemia, unspecified (principal); M25.541 Pain in joints of right hand
CPT/HCPCS: 36415; 80053; 80061; 85025; 85652; 86140; 86200; 86431

== ENCOUNTER → 2022-07-28 09:39 | Outpatient (REF) | payer MEDICARE, SELFPAY ==
--- NOTE | 2022-07-28 09:41 | CA_ITS ---
Transthoracic Echocardiogram Patient (Last, First, Middle): Joan Oliver, Gender: Female Date of : 1955 Age: 66 Procedure Date: 07/28/2022 Procedure Type: Transthoracic Echocardiogram Location: OP Height: 162.56 cm Weight: 79.38 kg BSA: 1.85 m2 Heart Rate: 74 bpm BP: 142 / 82 mmHg Box Office Agent: SB Referring MD: Eric Saavedra MD Symptoms: R00.2 - Palpitations Study Quality: Adequate ECG Rhythm: Sinus Conclusions: - Normal left ventricular size and systolic function. There is mildly increased left ventricular wall thickness. The visually estimated ejection fraction is between 60-65%. - E/E prime ratio is between 8 and 15 consistent with indeterminate filling pressures. - Normal right ventricular cavity size and systolic function. Findings Left Ventricle Normal left ventricular size and systolic function. There is mildly increased left ventricular wall thickness. The visually estimated ejection fraction is between 60-65%. There is no evidence of regional wall motion abnormalities. Abnormal diastolic function is noted. Spectral Doppler is indicative of an impaired relaxation filling pattern. E/E prime ratio is between 8 and 15 consistent with indeterminate filling pressures. There is severe septal asymmetric hypertrophy. Right Ventricle Normal right ventricular cavity size and systolic function. Atria The left atrium is normal in size. The right atrium is normal in size. Aortic Valve Normal aortic valve structure and function. There is no aortic valve stenosis. There is no aortic valve regurgitation. Mitral Valve The mitral valve appears normal. There is no mitral valve regurgitation. There is no mitral valve stenosis. Pulmonic Valve The pulmonic valve is likely normal. Tricuspid Valve Normal tricuspid valve structure and function. There is trace tricuspid valve regurgitation. Normal right atrial pressure. There is no evidence of pulmonary hypertension. Great Vessels All visible segments of the aorta are normal in size. Venous The inferior vena cava is normal in size and collapses greater than 50% with inspiration. Pericardium/Pleural There is no evidence of pericardial effusion. Prior Study Comparison No prior study available for comparison. Measurements 2D Linear Measurements IVSd: 1.43 0.6-0.9/0.6-1.0 cm LVIDd: 4.11 3.9-5.3/4.2-5.9 cm LVIDd Index: 2.22 2.4-3.2/2.2-3.1 cm/m2 LVIDs: 2.63 2.0-3.6 cm LVPWd: 1.05 0.7-1.1 cm LA Diam: 3.20 2.7-3.8/3.0-4.0 cm LAIDs Index: 1.73 1.5-2.3 cm/m2 LV Mass: 225.44 67-162/88-224 g LV Mass Index: 121.86 43-95/49-115 g/m2 LVOT Diam: 2.00 3.0+(-)1.3 cm 2D Systolic Function EF 4C: 55.80 >55% EF 2C: 64.90 >55% EF BiP: 60.50 >55% Mitral Valve MV Pk E: 0.55 MV PK A: 0.72 MV Decel Time: 251.00 E/A: 0.80 E'Lateral: 5.55 E'Medial: 5.44 E/E' Med: 10.00 E/E' Lat: 9.80 PHT: 73.00 MVA PHT: 3.01 Decel [place]: 2.17 Aortic Valve AoV Pk [place]: 1.47 AoV Mn [place]: 0.97 AoV VTI: 0.26 AoV Pk Grad: 9.00 Aov Mn Grad: 4.00 BRADLEY Cont.VTI: 2.69 LVOT LVOT Pk [place]: 1.14 LVOT Mn [place]: 0.77 LVOT VTI: 0.22 LVOT Pk Grad: 5.00 LVOT Mn Grad: 3.00 LVOT Diam: 2.00 LVOT Area: 3.14 Diastolic Function MV Pk E: 0.55 MV Pk A: 0.72 E/A: 0.80 E'Medial: 5.44 E/E' Med: 10.00 E' Laterial: 5.55 E/E' Lat: 9.80 Right Ventricle TAPSE (mm): 21.20 TVS' [place]: 11.40 Tricuspid Valve TR Pk [place]: 1.95 TR Pk Grad: 15.00 RA Press: 3.00 RVSP: 18.00 Great Vessels Aorta Sinus of Valsalva: 2.80 2.0-3.5 cm Ao Asc: 3.30 2.1-3.4 cm Pulmonary Valve PV Pk [place]: 0.94 Peak PV Grad: 3.00 Updated in Other Vendor System with Status of Final Eric Saavedra MD electronically signed on 07/29/2022 10:21:51 PM with status of Final
== END ==
LOC: HO.CARD 09:39
PROVIDERS: PCP Internal Medicine; Visit Provider Internal Medicine Cardiovascular Disease
DX: R00.2 Palpitations (principal)
CPT/HCPCS: 93306

== ENCOUNTER 2022-07-30 11:29 | Emergency (ER) | payer MEDICARE, SELFPAY ==
--- NOTE | ~2022-07-30 | US_ITS ---
EXAMINATION: US VENOUS ULTRASOUND WITH DOPPLER LOWER EXTREMITY, RIGHT CLINICAL INFORMATION: Pain COMPARISON: None available. TECHNIQUE: Ultrasound of the deep veins is performed from the hip to the calf with compression sonography and color and pulse Doppler assessment. Spectral analysis with color-flow imaging is performed. FINDINGS: There is normal venous compression and respiratory variation and augmented flow. The visualized common femoral vein, superficial femoral vein, profunda femoral vein, popliteal vein, and the trifurcation region shows no evidence of deep venous thrombosis. There is no significant popliteal fossa cyst. Included on the images normal left inguinal lymph nodes. If the patient's symptoms persist, followup ultrasound in 5 days 7 days might be of value to exclude proximal propagation from a non-visualized calf vein. US/US venous duplex LE RT IMPRESSION: No DVT demonstrated in the right lower extremity.
--- NOTE | ~2022-07-30 | XR_ITS ---
EXAMINATION: XR LUMBAR SPINE CLINICAL INFORMATION: Reason for Exam pain radiating down right leg COMPARISON: None TECHNIQUE: Frontal lateral and coned-down L5-S1 frontal lateral FINDINGS: Five ifu-ehk-hknayzs lumbar vertebrae were identified maintaining normal height and alignments. Narrowing of intervertebral disc spaces suggest underlying degenerative disc disease. Paravertebral soft tissues are unremarkable. There are radiolucencies, most likely superimposed bowel gas.. No radiographic evidence of osteolytic or osteoblastic lesions. XR/XR lumbar spine 2-3V IMPRESSION: No fracture. Loss of disc spaces and developed osteophyte from the edges of endplates suggest underlying degenerative disc disease at all levels. Bone alignments otherwise normal.
--- NOTE | ~2022-07-30 | XR_ITS ---
EXAMINATION: XR HIP, RIGHT , AP pelvis CLINICAL INFORMATION: Pain COMPARISON: None available at the time of this dictation. TECHNIQUE: Frontal and lateral views of the hip acquired. , AP pelvis FINDINGS: There is no evidence of acute fracture or dislocation. There are mild degenerative arthritic changes of the hip evident by sclerotic changes of the acetabular roof and narrowing of the joint space. Mild degenerative changes of the symphysis pubis. Mild degenerative changes of the SI joints. Adjacent pubic rami are intact. Surrounding soft tissues are unremarkable. XR/XR hip RT w PEL1V IMPRESSION: Mild degenerative osteoarthritis. No fracture, no radiographic evidence of bone lesion. .
[2022-07-30 12:03] VITALS: BP 129/80; PULSE 76; RESP 18; TEMP 37; O2SAT 98
--- NOTE | 2022-07-30 12:06 | ED.GENADULT ---
HPI - General Adult General Chief complaint: Back Pain/Injury <QUOC Arreola - Last Filed: 08/01/22 07:36> Stated complaint: severe R leg pain <QUOC Arreola - Last Filed: 08/01/22 07:36> Time Seen by Provider: 07/30/22 12:45 <QUOC Arreola - Last Filed: 08/01/22 07:36> Source: patient <Rema Damian NP - Last Filed: 07/30/22 14:35> Mode of arrival: ambulatory <Rema Damian NP - Last Filed: 07/30/22 14:35> Limitations: no limitations <Rema Damian NP - Last Filed: 07/30/22 14:35> History of Present Illness HPI narrative: 66 yo female with history of HTN, HLD here with complaints of right groin pain which radiates into right hip/posterior buttocks and down right leg with no known injury or trauma for the last 10 days. Patient reports she initially felt pain over her right anterior groin and the pain migrated to the lateral hip and has been going down her leg. There is no associated numbness or tingling of the extremity. No swelling, redness, fever. Patient denies any recent travel, recent surgeries or sick contact. No estrogen use. No history DVT or PE. No family history of same. Patient denies any history of numbness in the groin, bowel or bladder incontinence. Patient is ambulatory <Rema Damian NP - Last Filed: 07/30/22 14:35> Related Data Home medications: Previous Rx's Medication Instructions Recorded amlodipine 5 mg tablet 5 mg PO DAILY #60 tabs 06/26/22 carvedilol 3.125 mg tablet 3.125 mg PO BID #90 tabs 06/26/22 ezetimibe 10 mg tablet (Zetia) 10 mg PO DAILY #60 tabs 06/26/22 naproxen 500 mg tablet 500 mg PO BID PRN pain #20 tabs 07/30/22 <QUOC Arreola - Last Filed: 08/01/22 07:36> Allergies/adverse reactions: Allergies Allergy/AdvReac Type Severity Reaction Status Date / Time atorvastatin Allergy Intermediate Rash Verified 07/30/22 12:01 red yeast rice Allergy Rash Verified 07/30/22 12:02 <QUOC Arreola - Last Filed: 08/01/22 07:36> Review of Systems Review of Systems: Yes all other systems are reviewed and are negative <Rema Damian NP - Last Filed: 07/30/22 14:35> Constitutional: Constitutional: Reports no additional constitutional complaints, Denies body ache(s), Denies chills, Denies fever(s), Denies headache(s) and Denies weakness <Rema Damian NP - Last Filed: 07/30/22 14:35> Eyes: Eyes: Reports no additional eye complaints and Denies change in vision <Rema Damian NP - Last Filed: 07/30/22 14:35> ENT: Reports system reviewed and no additional complaints, except as documented, Denies dizziness, Denies headache(s), Denies nasal congestion, Denies nasal discharge and Denies neck pain <Rema Damian NP - Last Filed: 07/30/22 14:35> Cardiovascular: Cardiovascular: Reports no additional cardiovascular complaints, Denies chest pain, Denies leg edema and Denies dyspnea <Rema Damian NP - Last Filed: 07/30/22 14:35> Respiratory: Respiratory: Reports no additional respiratory complaints, Denies cough and Denies dyspnea <Rema Damian NP - Last Filed: 07/30/22 14:35> Gastrointestinal: Gastrointestinal: Reports no additional gastrointestinal complaints, Denies abdominal pain, Denies diarrhea, Denies nausea and Denies vomiting <Rema Damian NP - Last Filed: 07/30/22 14:35> Genitourinary: Genitourinary: Reports no additional female genitourinary complaints and Denies urinary incontinence <Rema Damian NP - Last Filed: 07/30/22 14:35> Musculoskeletal: Musculoskeletal: Reports no additional musculoskeletal complaints, Denies back pain, Reports arthralgias, Denies joint swelling, Denies neck pain, Denies numbness, Reports radiating pain into limb and Denies tingling <Rema Damian NP - Last Filed: 07/30/22 14:35> Integumentary/Breasts: Skin/Breast: Reports system reviewed and no additional complaints, except as docu and Denies rash <Rema Damian NP - Last Filed: 07/30/22 14:35> Neurologic: Reports system reviewed and no additional complaints, except as documented, Denies dizziness, Denies headache(s), Denies numbness, Denies tingling and Denies weakness <Rema Damian NP - Last Filed: 07/30/22 14:35> [facility] Past Medical History Attestation statement: The following information was validated with the patient. <Rema Damian NP - Last Filed: 07/30/22 14:35> Source: old records reviewed and nursing notes reviewed <Rema Damian NP - Last Filed: 07/30/22 14:35> Medical History: Medical History Essential hypertension Hyperlipidemia No significant past medical history <QUOC Arreola - Last Filed: 08/01/22 07:36> Surgical History: Surgical History History of arthroplasty of right shoulder History of post-sterilization tuboplasty <QUOC Arreola - Last Filed: 08/01/22 07:36> Family History Family History: Family History Maternal Aunt Breast CA Brother Stroke Mother Stroke Rheumatoid arthritis <QUOC Arreola - Last Filed: 08/01/22 07:36> Social History Social History: Social History Alcohol intake: never Patient Tobacco Use Status: Never used Tobacco Advance Directives: No Advance Directives Information Provided: Yes Current occupational status: previously employed 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 <QUOC Arreola - Last Filed: 08/01/22 07:36> Physical Exam ED Vital Signs: Vital Signs - 24 hr 07/30/22 12:03 Temperature 98.6 F Pulse Rate 76 Respiratory Rate 18 Blood Pressure 129/80 Pulse Oximetry 98 Oxygen Delivery Method Room Air BMI result Body Mass Index 30.0 <QUOC Arreola - Last Filed: 08/01/22 07:36> Vital Signs - 24 hr 07/30/22 12:03 Temperature 98.6 F Pulse Rate 76 Respiratory Rate 18 Blood Pressure 129/80 Pulse Oximetry 98 Oxygen Delivery Method Room Air BMI result Body Mass Index 30.0 <Rema Damian NP - Last Filed: 07/30/22 14:35> Const General: cooperative, healthy appearing, comfortable and no acute distress <Rema Damian NP - Last Filed: 07/30/22 14:35> Orientation/consciousness: patient oriented x3 <Rema Damian NP - Last Filed: 07/30/22 14:35> Limitations: no limitations <Rema Damian NP - Last Filed: 07/30/22 14:35> HENMT Head: Yes normal to inspection <Rema Damian NP - Last Filed: 07/30/22 14:35> Ears: hearing grossly normal bilaterally <Rema Damian NP - Last Filed: 07/30/22 14:35> Eyes General: appearance normal, both eyes and all related structures <Rema Damian NP - Last Filed: 07/30/22 14:35> Pupils: Equal, round and reactive pupils present <Rema Damian NP - Last Filed: 07/30/22 14:35> Neck Neck: Yes normal visual inspection and Yes full ROM <Rema Damian NP - Last Filed: 07/30/22 14:35> Chest Chest palpation & inspection: normal inspection of the chest <Rema Damian NP - Last Filed: 07/30/22 14:35> Resp Effort & Inspection: normal respiratory effort <Rema Damian NP - Last Filed: 07/30/22 14:35> Auscultation: clear to auscultation bilaterally <Rema Damian NP - Last Filed: 07/30/22 14:35> Cardio Rate: regular rate <Rema Damian NP - Last Filed: 07/30/22 14:35> Rhythm: regular rhythm <Rema Crystalluis, WEATHERIZATION AND HOUSING INSPECTOR - Last Filed: 07/30/22 14:35> Peripheral pulses: Peripheral pulses 2+ throughout <Rema Crystalkimmyi, WEATHERIZATION AND HOUSING INSPECTOR - Last Filed: 07/30/22 14:35> GI Inspection: Yes normal to inspection <Rema Crystalluis, WEATHERIZATION AND HOUSING INSPECTOR - Last Filed: 07/30/22 14:35> Palpation (GI): Soft to palpation and nontender <Rema Fabricei, WEATHERIZATION AND HOUSING INSPECTOR - Last Filed: 07/30/22 14:35> General: Yes no CVA tenderness <Rema Marlonmichelei, WEATHERIZATION AND HOUSING INSPECTOR - Last Filed: 07/30/22 14:35> Back/Spine/Pelvis Other: There is no back tenderness on exam <Rema Marlonjanes, WEATHERIZATION AND HOUSING INSPECTOR - Last Filed: 07/30/22 14:35> Back: no CVA tenderness <Rema Marlonirmacci, WEATHERIZATION AND HOUSING INSPECTOR - Last Filed: 07/30/22 14:35> Thoracic/Lumbar Spine: thoracic and lumbar spine normal to inspection <Rema Crystalcci, WEATHERIZATION AND HOUSING INSPECTOR - Last Filed: 07/30/22 14:35> Skin General skin exam: no rashes or lesions noted <Rema Crystalkimmyi, WEATHERIZATION AND HOUSING INSPECTOR - Last Filed: 07/30/22 14:35> Neuro General: patient oriented x3 and moves all extremities <Rema Marlonmichelei, WEATHERIZATION AND HOUSING INSPECTOR - Last Filed: 07/30/22 14:35> Cranial nerves: Yes CN's II-XII intact bilaterally, Yes Equal, round and reactive pupils present, Yes Bilaterally intact EOM present, Yes Nystagmus not present, Yes Normal facial strength present and Yes Midline tongue present <Rema Marlonmichelei, WEATHERIZATION AND HOUSING INSPECTOR - Last Filed: 07/30/22 14:35> Cognition (Neuro): normal cognition <Rema Crystalcci, WEATHERIZATION AND HOUSING INSPECTOR - Last Filed: 07/30/22 14:35> Motor exam (neuro): 5/5 motor strength present throughout <Rema Fabricei, WEATHERIZATION AND HOUSING INSPECTOR - Last Filed: 07/30/22 14:35> Sensory Exam: Normal double simultaneous stimulation for sensation <Rema Fabricei, WEATHERIZATION AND HOUSING INSPECTOR - Last Filed: 07/30/22 14:35> Deep tendon reflexes (DTR's): Right patellar reflex intensity grade: 2+ and Left patellar reflex intensity grade: 2+ <Rema Damian NP - Last Filed: 07/30/22 14:35> Extrem Other: On exam patient has tenderness over the right lateral hip which is worsened with internal rotation of the hip. Patient is able to passively and actively move the hip with no difficulty. There is no shortening, rotation deformity noted of the hip. There are palpable DP and PT pulses distally. Sensation is intact distally. Pain is worsened if patient to hold the leg in a straight leg and raises it. <Rema Damian NP - Last Filed: 07/30/22 14:35> General: Yes normal to inspection, Yes no pedal edema and Yes no calf tenderness <Rema Damian NP - Last Filed: 07/30/22 14:35> Course Course Course Narrative: RME: 66 yold female presens to the ED concerned for a blood clot. patient states right groin pain, right buttock pain, radiating down right leg. no leg swelling or calf pain. positive groin and right buttock pain. no recent trauma or fever. US of leg and lumbar xray ordered <QUOC Arreola - Last Filed: 08/01/22 07:36> Reevaluation(s) Reevaluation #1: X-rays of the hip are consistent with osteoarthritis. Ultrasound negative for DVT. Likely bursitis. Patient will be discharged home with NSAIDs recommendations for supportive care at home and follow-up with orthopedics for persistent symptoms. Reviewed worrisome signs and symptoms of when to return to the emergency room. Comfortable plan for discharge home. <Rema Damian NP - Last Filed: 07/30/22 14:35> Medical Decision Making Medical Decision Making MDM Narrative: 66-year-old female here with 10 days of right hip pain which radiates down the leg with no known injury or trauma. Patient with tenderness over the lateral hip which is worsened with movement with intact range of motion. Neurovascular intact distally. No tenderness over the spine. No overt neurological deficits or red flag symptoms. Patient had x-rays and an ultrasound ordered from triage <Rema Damian NP - Last Filed: 07/30/22 14:35> Differential Diagnosis Differential Diagnoses: The differential diagnosis associated with the presentation includes <Rema Damian NP - Last Filed: 07/30/22 14:35> Likely bursitis Low concern for septic joint, lumbar radiculopathy, herniated disc, epidural abscess, cord compression, cauda equina, DVT <Rema Damian NP - Last Filed: 07/30/22 14:35> Independent Interpretation I performed an independent interpretation of an: Plain X-Ray and Ultrasound <Rema Damian NP - Last Filed: 07/30/22 14:35> Interpretation: I independently reviewed the x-ray, ultrasound and agree with radiologist's report <Rema Damian NP - Last Filed: 07/30/22 14:35> Radiology Impression Discussion of test interpretation with radiology: I have reviewed the radiologist's reading. <Rema Damian NP - Last Filed: 07/30/22 14:35> Radiologist Impression: [place] [id number] XRay Report Signed Patient: Joan Oliver MR#: [id number] : 1955 Acct:[id number] Age/Sex: 66 / F ADM Date: 07/30/22 Loc: HO.ED Attending Dr: Ordering Physician: Tevin Estrada Date of Service: 07/30/22 Procedure(s): XR lumbar spine 2-3V Accession Number(s): [id number] cc: Tevin Estrada~ EXAMINATION: XR LUMBAR SPINE CLINICAL INFORMATION: Reason for Exam pain radiating down right leg COMPARISON: None TECHNIQUE: Frontal lateral and coned-down L5-S1 frontal lateral FINDINGS:? Five [id number]-ldq-[id number] lumbar vertebrae were identified maintaining normal height and alignments. Narrowing of intervertebral disc spaces suggest underlying degenerative disc disease. ? Paravertebral soft tissues are unremarkable. There are radiolucencies, most likely superimposed bowel gas.. No radiographic evidence of osteolytic or osteoblastic lesions. XR/XR lumbar spine 2-3V IMPRESSION: No fracture. ? Loss of disc spaces and developed osteophyte from the edges of endplates suggest underlying degenerative disc disease at all levels. ? Bone alignments otherwise normal. IQUE: Frontal and lateral views of the hip acquired. , AP pelvis FINDINGS: There is no evidence of acute fracture or dislocation. There are mild degenerative arthritic changes of the hip evident by sclerotic changes of the acetabular roof and narrowing of the joint space. Mild degenerative changes of the symphysis pubis. Mild degenerative changes of the SI joints.? Adjacent pubic rami are intact. Surrounding soft tissues are unremarkable. XR/XR hip RT w PEL1V IMPRESSION: Mild degenerative osteoarthritis. ? No fracture, no radiographic evidence of bone lesion. ? . [address] [address] Ultrasound Report Signed Patient: Joan Oliver MR#: [id number] : 1955 Acct:[id number] Age/Sex: 66 / F ADM Date: 07/30/22 Loc: .ED Attending Dr: Ordering Physician: Tevin Estrada Date of Service: 07/30/22 Procedure(s): US venous duplex LE RT Accession Number(s): [id number] cc: Tevin Estrada~ EXAMINATION:? US VENOUS ULTRASOUND WITH DOPPLER LOWER EXTREMITY, RIGHT CLINICAL INFORMATION:? Pain COMPARISON:? None available. TECHNIQUE: Ultrasound of the deep veins is performed from the hip to the calf with compression sonography and color and pulse Doppler assessment. Spectral analysis with color-flow imaging is performed. FINDINGS: There is normal venous compression and respiratory variation and augmented flow. The visualized common femoral vein, superficial femoral vein, profunda femoral vein, popliteal vein, and the trifurcation region shows no evidence of deep venous thrombosis. ? There is no significant popliteal fossa cyst. Included on the images normal left inguinal lymph nodes. If the patient's symptoms persist, followup ultrasound in 5 days 7 days might be of value to exclude proximal propagation from a non-visualized calf vein. US/US venous duplex LE RT IMPRESSION: No DVT demonstrated in the right lower extremity. <Rema Damian NP - Last Filed: 07/30/22 14:35> Discharge Plan Discharge Clinical Impression: Bursitis <QUOC Arreola - Last Filed: 08/01/22 07:36> Patient Disposition: Home, Self-Care <QUOC Arreola - Last Filed: 08/01/22 07:36> Instructions: Hip Bursitis (ED) <QUOC Arreola - Last Filed: 08/01/22 07:36> Additional Instructions: Your ultrasound shows no signs of a blood clot Your x-ray shows arthritis Apply heat, gentle stretching <QUOC Arreola - Last Filed: 08/01/22 07:36> Prescriptions: New naproxen 500 mg tablet 500 mg PO BID PRN (Reason: pain) Qty: 20 0RF No Action ezetimibe [Zetia] 10 mg tablet 10 mg PO DAILY Qty: 60 3RF amlodipine 5 mg tablet 5 mg PO DAILY Qty: 60 3RF carvedilol 3.125 mg tablet 3.125 mg PO BID Qty: 90 3RF Rx Instructions: must administer with a meal/food <QUOC Arreola - Last Filed: 08/01/22 07:36> Referrals: [facility] Surgeons [Provider Group] - 2 weeks <QUOC Arreola - Last Filed: 08/01/22 07:36> Interventions: ED Discharge Assessment Last Done: 07/30/22 14:28 <QUOC Arreola - Last Filed: 08/01/22 07:36> Discharge Date/Time: 07/30/22 14:28 <QUOC Arreola - Last Filed: 08/01/22 07:36>
== END 2022-07-30 14:28 | disposition home or self-care (01) ==
PROVIDERS: Emergency Provider Emergency Medicine
DX: M54.50 Low back pain, unspecified (principal); M79.604 Pain in right leg; R60.0 Localized edema; M25.552 Pain in left hip; Z79.899 Other long term (current) drug therapy
CPT/HCPCS: 72100; 73502; 93971; 99282; 99283

== ENCOUNTER → 2022-08-10 13:20 | Outpatient (BNVA) | payer MEDICARE, SELFPAY | PROVIDERS: Visit Provider Student in an Organized Health Care Education/Training Program | DX: M54.31 Sciatica, right side (principal) | CPT/HCPCS: 99212 ==

== ENCOUNTER → 2022-09-05 10:51 | Outpatient (BNVA) | payer MEDICARE, SELFPAY | PROVIDERS: Visit Provider Nurse Practitioner Family | DX: M47.26 Other spondylosis with radiculopathy, lumbar region (principal); M62.830 Muscle spasm of back; S39.013A Strain of muscle, fascia and tendon of pelvis, initial encounter | CPT/HCPCS: 99202 ==

== ENCOUNTER 2022-09-14 11:03 | Outpatient (REF) | payer MEDICARE, SELFPAY | END 2022-09-14 11:04 | disposition home or self-care (01) | LOC: HO.MRI 11:03 | PROVIDERS: Visit Provider Student in an Organized Health Care Education/Training Program | DX: Z13.89 Encounter for screening for other disorder (principal) ==

== ENCOUNTER → 2022-10-02 13:08 | Outpatient (BNVA) | payer MEDICARE, SELFPAY | PROVIDERS: Visit Provider Internal Medicine Cardiovascular Disease | DX: E78.5 Hyperlipidemia, unspecified (principal); I10 Essential (primary) hypertension | CPT/HCPCS: 99212 ==

== ENCOUNTER 2022-11-13 14:11 | Outpatient (AMB) | payer MEDICARE, SELFPAY ==
--- NOTE | 2022-11-13 14:15 | A.OFFVIS_ITS ---
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 No complaints. Last Pap/HPV was few years ago with no history of abnormal Pap years , the patient is requesting to have co test done this year Last Mammogram was in 07/23 was BI-RADS 1 Last Colonoscopy was in 03/21 Last DEXA scan was in 12/22, the patient had osteopenia PFSH Medical History Essential hypertension Hyperlipidemia No significant past medical history Surgical History History of arthroplasty of right shoulder History of post-sterilization tuboplasty Family History Maternal Aunt Breast CA Brother Stroke Mother Stroke Rheumatoid arthritis Social History (Updated 11/13/22 @ 14:27 by Dania Vu CMA) Household Members: None Housing: House Alcohol intake: current Alcohol intake frequency: holidays/special occasions only Patient Tobacco Use Status: Never used Tobacco Current occupational status: employed and retired 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 Sexually active: No Sexual orientation: Straight/Heterosexual Gender identity: Female Female Reproductive History Menstrual Age of Menarche: 10 control method: permanent sterilization Total pregnancies: 3 Full term: 2 Number of Living Children: 2 Date of Mammogram: 07/05/22 Review of Systems Const All systems reviewed & are unremarkable except as noted in HPI and below Card Reports as per HPI Resp Reports as per HPI GI Reports as per HPI and Reports no additional complaints Reports as per HPI Physical Exam Vital Signs: Last Vital Signs BP 132/70 11/13/22 14:17 BMI result Body Mass Index 30.1 Const General: cooperative, healthy appearing and comfortable Chest Chest palpation & inspection: normal inspection of the chest and normal palpation of entire chest wall Breast/axilla inspection: normal inspection of the breasts and normal inspection of the axillae Breast/axilla palpation: normal palpation of the breasts, normal palpation of the axillae and no axillary lymphadenopathy Resp Effort & Inspection: normal respiratory effort Auscultation: clear to auscultation bilaterally Percussion: percussion normal Cardio Palpation: normal PMI Rate: regular rate Rhythm: regular rhythm Heart sounds: no murmurs and no rubs Peripheral pulses: Peripheral pulses 2+ throughout GI Inspection: Yes normal to inspection Palpation (GI): Soft to palpation, nontender, no guarding, not rigid and No hepatosplenomegaly present Percussion: Yes normal to percussion Auscultation: normal bowel sounds Rectal Exam - Female: deferred General: Yes bladder normal to palpation External Female Exam: No lesion Speculum Exam - Vagina: normal appearance of the vagina, normal palpation, normal vaginal discharge and not erythematous Speculum Exam - Cervix: normal appearance of the cervix and normal palpation Bimanual exam- vagina & uterus: normal bimanual exam, normal palpation, uterine size normal, bladder normal to palpation, consistency normal and normal palpation Bimanual Exam- Adnexa, other: normal adnexae, no masses and no tenderness Assessment & Plan Assessment & Plan (1) Well woman exam: Code(s): Z01.419 - Encounter for gynecological examination (general) (routine) without abnormal findings Plan: Co testing although not indicated it was done per patient request. Counseled the patient about the recommended dietary allowance of 1200 mg of Calcium & 600 IU of vitamin D. Instructions given the patient to schedule next screen Mammogram in 07/24 . The patient was instructed to perform monthly self-breast exams and schedule annual exam in a year; all questions answered and the patient verbalized understanding. Coding Level of Care Code Est Pt Prev Care >65y(57501) Diagnoses Well woman exam Z01.419
[2022-11-13 14:17] VITALS: BP 132/70; BMI 30.1
== END 2022-11-13 14:44 | disposition home or self-care (01) ==
LOC: HO.HWS 14:11
PROVIDERS: Visit Provider Obstetrics & Gynecology
DX: Z01.419 Encounter for gynecological examination (general) (routine) without abnormal findings (principal)
CPT/HCPCS: 99397

== ENCOUNTER 2022-11-13 14:11 | Outpatient (REF) | payer MEDICARE, SELFPAY ==
[2022-11-16 03:44] LABS: HPV mRNA E6/E7 rflx Not Detected (Not Detected)
== END 2022-11-13 14:12 | disposition home or self-care (01) ==
LOC: HO.LNP 14:11
PROVIDERS: Visit Provider Obstetrics & Gynecology
DX: Z01.419 Encounter for gynecological examination (general) (routine) without abnormal findings (principal); Z11.51 Encounter for screening for human papillomavirus (HPV)
CPT/HCPCS: 87624; 88142

== ENCOUNTER 2022-11-20 10:50 | Outpatient (AMB) | payer MEDICARE, SELFPAY ==
--- NOTE | 2022-11-20 10:53 | MHC.OFFVIS ---
Intake Vital Signs 11/20/22 10:58 Height 5 ft 3 in Weight 172 lb BMI 30.5 Intake Visit Reasons: Abdominal Pain, ? Gallbladder Intake Note: This patient presents for an assessment for abdominal pain , questions cholelithiasis. Patient c/o; reports occasional nausea, reports pin and needles in the extremities, describes sweats and sometimes it can be profuse sweats, reports feeling tired and fatigued, denies vomiting, denies diarrhea, reports bilateral shoulder pains, reports RUQ pain which radiates towards the back, reports epigastric pain. Solution Advisor Required: No Accompanied by: Self / Same As Patient Allergies atorvastatin Allergy (Intermediate, Verified 11/20/22 10:59) Rash red yeast rice Allergy (Verified 11/20/22 10:59) Rash HPI HPI Comments History of Present Illness Details Patient presents a longstanding history of right upper quadrant pain. He has had extensive and exhaustive workup for this including upper lower endoscopy, CCK HIDA scan, all of which have been nondiagnostic. Patient tolerates her diet. She has regular bowel habits withstool softeners supplementing. She has never been jaundiced before. She does not have fatty food intolerance per se but certain food items bring on her symptoms of right upper quadrant pain occasionally radiating around to the back. Chart was reviewed patient evaluated. [facility] Medical History (Updated 11/20/22 @ 11:11 by Adrian Thacker MD) Essential hypertension Hyperlipidemia No significant past medical history Surgical History (Updated 11/20/22 @ 11:14 by Adrian Thacker MD) Biliary colic History of arthroplasty of right shoulder History of post-sterilization tuboplasty Family History Maternal Aunt Breast CA Brother Stroke Mother Stroke Rheumatoid arthritis Social History Household Members: None Housing: House Alcohol intake: current Alcohol intake frequency: holidays/special occasions only Patient Tobacco Use Status: Never used Tobacco Current occupational status: employed and retired 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 Mild right upper quadrant tenderness with deep inspiration. No evidence of any guarding, rebound, rigidity. Assessment & Plan Assessment & Plan (1) Biliary colic: Code(s): K80.50 - Calculus of bile duct without cholangitis or cholecystitis without obstruction Plan: Reviewed the patient's chart, she has not had an ultrasound right upper quadrant. We will arrange for this and she will see me after and direct further therapy based on these results and her clinical course. Orders: Orders US abdomen limited 4 Days K80.50 - Calculus of bile duct without cholangitis or cholecystitis without obstruction Coding Level of Care Code New Pt Level 4 (36403) Diagnoses Biliary colic K80.50
[2022-11-20 10:58] VITALS: BMI 30.5
== END 2022-11-20 11:24 | disposition home or self-care (01) ==
PROVIDERS: Referring Provider Internal Medicine Gastroenterology; Visit Provider Surgery
DX: K80.50 Calculus of bile duct without cholangitis or cholecystitis without obstruction (principal)
CPT/HCPCS: 99204

== ENCOUNTER → 2022-11-20 10:50 | Outpatient (BNVA) | payer MEDICARE, SELFPAY | PROVIDERS: Referring Provider Internal Medicine Gastroenterology; Visit Provider Surgery | DX: K80.50 Calculus of bile duct without cholangitis or cholecystitis without obstruction (principal); R10.11 Right upper quadrant pain | CPT/HCPCS: 99202 ==

== ENCOUNTER 2022-12-19 08:22 | Outpatient (REF) | payer MEDICARE, SELFPAY ==
--- NOTE | ~2022-12-19 | US_ITS ---
EXAMINATION: US ABDOMEN LIMITED CLINICAL INFORMATION: Calculus of bile duct without cholangitis or cholecystitis without obstruction. COMPARISON: Ultrasound abdomen complete 10/14/2020. TECHNIQUE: Real-time imaging of the right upper quadrant abdominal viscera. FINDINGS: PANCREAS: The pancreas appears unremarkable, without masses or ductal dilatation, with the exception of the tail which is obscured by bowel gas. Pancreatic duct measures 2 mm in diameter. The previously seen echogenic focus is in the pancreatic neck is not identified on this exam. LIVER: The liver is normal in size. The liver contour is normal. There is diffuse increased liver parenchymal echogenicity, consistent with hepatic steatosis. No focal hepatic lesion. There is no intrahepatic biliary duct dilatation seen. GALLBLADDER: Normal. The gallbladder is physiologically distended without evidence of stones, sludge, polyps, wall thickening or pericholecystic fluid. COMMON BILE DUCT: Normal in caliber measuring 0.7 cm in diameter. RIGHT KIDNEY: No hydronephrosis. In the upper pole of the right kidney there is a 4 x 3 x 4 mm area of echogenicity seen suggestive of a nonobstructing calculus. Similar finding was present on the 10/14/2020 study. No other renal calculi or focal parenchymal lesions. The kidney measures 9.7 cm in maximum dimension. FREE FLUID: None. US/US abdomen limited IMPRESSION: 1. Hepatic steatosis. 2. Nonobstructing right renal calculus.
[2022-12-19 11:14] LABS: Cholesterol 224 mg/dL (<200); HDL Cholesterol 40 mg/dL (>40); LDL Cholesterol Calculated 141 mg/dL (<100); Triglycerides 219 mg/dL (<150)
== END 2022-12-19 08:23 | disposition home or self-care (01) ==
LOC: HO.US 08:22
PROVIDERS: Internal Medicine Cardiovascular Disease; Visit Provider Surgery
DX: K80.50 Calculus of bile duct without cholangitis or cholecystitis without obstruction (principal); E78.5 Hyperlipidemia, unspecified
CPT/HCPCS: 36415; 76705; 80061

== ENCOUNTER 2022-12-20 09:32 | Outpatient (AMB) | payer MEDICARE, SELFPAY ==
[2022-12-20 09:40] VITALS: BP 130/74; PULSE 82; TEMP 36.3; O2SAT 98; BMI 30.7
--- NOTE | 2022-12-20 09:40 | A.OFFVIS_ITS ---
Intake Vital Signs 12/20/22 09:40 Height 5 ft 3 in Weight 173 lb 1.006 oz BMI 30.7 BP 130/74 Blood Pressure Location Rt brachial Position Sitting Pulse 82 Pulse Source Pulse Oximeter Temp 97.4 F Temp Source Skin Pulse Oximetry (%) 98 Intake Visit Reasons: sciatica Intake Note: Pt seen today for sciatica follow up. States she does not feel good, feels a lot of abdominal inflammation. Pain all over, especially right sided neck pain that radiates to other areas. Has tried flexeril but stopped taking this because it made her too sleepy. 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 She stated that the Medrol Dosepak gave her dramatic relief of her back pain. She was evaluated by Pain Management and for an L-spine MRI was ordered, patient could not tolerate the MRI, became goes to for review. She was unable to go through with the test. Over the last few months she has been having right upper quadrant abdominal pain. She was evaluated by a prospecting driller helper, she had a CT scan which showed fatty liver, HIDA scan was unremarkable per patient. She was recently evaluated by a surgeon and an ultrasound was done today. Results pending. She was also evaluated by neurologist for tingling and numbness of her hands and feet. Physical therapy was ordered patient was too busy to go. Initial history: This is a 66-year-old female who presents for follow-up. Patient stated that about 12 days ago she went to the ER due to relatively abrupt right lower back, right buttock, right groin and right hip pain radiating from the back of her thigh towards her leg. She had x-rays of her lower back and hips which showed arthritis. Venous duplex showed no evidence of DVT. Patient was discharged home on NSAIDs without much relief. She went to an physician's aide and she states that acupuncture helps her. Patient cannot recall an injury or doing something that might have injured her back or hip. Continues to have similar pain 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 Sexual orientation: Straight/Heterosexual Gender identity: Female Female Reproductive History Menstrual Age of Menarche: 10 Review of Systems ENT Reports neck pain GI Reports abdominal pain Musc Reports back pain, Reports arthralgias, Reports neck pain, Reports numbness and Reports tingling Neuro Reports numbness and Reports tingling Physical Exam Vital Signs: Last Vital Signs Temp 97.4 F 12/20/22 09:40 Pulse 82 12/20/22 09:40 BP 130/74 12/20/22 09:40 Pulse Ox 98 12/20/22 09:40 BMI result Body Mass Index 30.7 Const General: cooperative and healthy appearing Nutritional Appearance: average body habitus Orientation/consciousness: patient oriented x3 Limitations: no limitations HEENT Head: Yes normocephalic and Yes atraumatic Mouth: moist mucous membranes Resp Effort & Inspection: normal respiratory effort and able to speak in complete sentences Neuro General: patient oriented x3 Extrem Other: Extensive osteoarthritic changes of both hands with prominent Heberden's and Kacie's nodes. Patient walks normally today No buttock tenderness bilaterally today Negative straight leg raise test bilaterally today Negative Spurling's test bilaterally Assessment & Plan Assessment & Plan (1) Sciatica: Code(s): M54.30 - Sciatica, unspecified side Qualifiers: Laterality: right Qualified Code(s): M54.31 - Sciatica, right side Plan: Symptoms resolved with Medrol taper. She was evaluated by Pain Management and an L-spine MRI was suggested. Patient could not tolerate the MRI due to claustrophobia. Follow-up with pain management. Follow-up with me as needed Plan I spent 15 minutes reviewing patient's chart, evaluating patient, counseling patient and documenting in the chart Coding Level of Care Code Est Pt Level 3 (51027) Diagnoses Sciatica of right side M54.31 Laterality: right
== END 2022-12-20 10:21 | disposition home or self-care (01) ==
PROVIDERS: Visit Provider Student in an Organized Health Care Education/Training Program
DX: M54.31 Sciatica, right side (principal)
CPT/HCPCS: 99213

== ENCOUNTER → 2022-12-20 09:32 | Outpatient (BNVA) | payer MEDICARE, SELFPAY | PROVIDERS: Visit Provider Student in an Organized Health Care Education/Training Program | DX: M54.31 Sciatica, right side (principal) | CPT/HCPCS: 99212 ==

== ENCOUNTER 2022-12-26 09:49 | Outpatient (AMB) | payer MEDICARE, SELFPAY ==
--- NOTE | 2022-12-26 09:57 | MHC.OFFVIS ---
Intake Vital Signs 12/26/22 10:00 Height 5 ft 3 in Weight 174 lb BMI 30.8 BP 157/71 H Blood Pressure Location Rt brachial Position Sitting Pulse 78 Intake Visit Reasons: Follow Up US results Intake Note: Patient here to discuss abd US results. Us completed on 12-19-22. 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 Her right upper quadrant symptoms have somewhat subsided. She is also undergoing acupuncture to the area which she thinks has improved her symptoms. She is tolerating her diet and having regular bowel habits Ultrasound results were negative for any biliary disease. 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 Coding Level of Care Code Est Pt Level 3 (03931) Diagnoses Abdominal pain in female patient R10.9
[2022-12-26 10:00] VITALS: BP 157/71; PULSE 78; BMI 30.8
== END 2022-12-26 11:04 | disposition home or self-care (01) ==
PROVIDERS: Visit Provider Surgery
DX: R10.9 Unspecified abdominal pain (principal)
CPT/HCPCS: 99213

== ENCOUNTER → 2022-12-26 09:49 | Outpatient (BNVA) | payer MEDICARE, SELFPAY | PROVIDERS: Visit Provider Surgery | DX: R10.9 Unspecified abdominal pain (principal) | CPT/HCPCS: 99212 ==

== ENCOUNTER 2023-01-26 08:19 | Outpatient (REF) | payer MEDICARE, SELFPAY ==
[2023-01-26 08:34] LABS: MANUAL DIFF FLAG NO
[2023-01-26 09:07] LABS: Basophils Absolute Auto 0.1 X10*3/uL (0.0-0.2); Basophils Percent Auto 1.1 % (0-2); Eosinophils Absolute Auto 0.5 X10*3/uL (0.0-0.4); Eosinophils Percent Auto 5.4 % (0-4); Hematocrit 39.3 % (37.0-47.0); Hemoglobin 12.6 g/dl (12.0-16.0); Imm Gran Abs Auto 0.02 X10*3/uL (0.00-0.03); Imm Gran Pct Auto 0.2 % (0.0-0.4); Lymphocytes Absolute Auto 3.7 X10*3/uL (1.2-4.9); Lymphocytes Percent Auto 39.4 % (20-40); Mean Corpuscular HGB Conc 32.1 g/dl (31.0-35.0); Mean Corpuscular Hemoglobin 27.4 pg (27.0-33.0); Mean Corpuscular Volume 85.4 fL (80.0-98.0); Mean Platelet Volume 10.3 fL (9.4-12.3); Monocytes Absolute Auto 0.7 X10*3/uL (0.1-1.2); Monocytes Percent Auto 7.4 % (2-11); Neutrophils Absolute Auto 4.4 x10*3/uL (2.0-8.3); Neutrophils Percent Auto 46.5 % (45-73); Platelet Count 352 X10*3/uL (160-400); Red Cell Distribution Width 13.6 % (11.0-16.0); White Blood Count 9.5 X10*3/uL (4.8-10.8)
[2023-01-26 09:39] LABS: Alanine Aminotransferase 13 U/L (0-31); Albumin Level 3.3 g/dL (3.5-5.0); Alkaline Phosphatase 90 U/L (39-117); Aspartate Amino Transferase 19 U/L (5-31); Bilirubin Direct 0.1 mg/dL (0.0-0.5); Bilirubin Total 0.3 mg/dL (0.0-1.0); Lipase 118 U/L (8-78); Total Protein 7.4 g/dL (6.5-8.0)
[2023-02-02 00:34] LABS: FIB-ALT 11 U/L (6-29); FIB-Alpha-2-Macroglobulin 190 mg/dL (106-279); FIB-Apolipoprotein A1 151 mg/dL (101-198); FIB-GGT 16 U/L (3-65); FIB-Haptoglobin 230 mg/dL (43-212); FIB-Total Bilirubin 0.2 mg/dL (0.2-1.2); Liver Fibrosis Score 0.08; Liver Fibrosis Stage F0; Nec Inflam Act Grade A0; Nec Inflam Act Score 0.02
== END 2023-01-26 08:20 | disposition home or self-care (01) ==
LOC: HO.LAB 08:19
PROVIDERS: PCP Internal Medicine; Visit Provider Internal Medicine Gastroenterology
DX: K76.0 Fatty (change of) liver, not elsewhere classified (principal)
CPT/HCPCS: 36415; 80076; 81596; 83690; 85025

== ENCOUNTER 2023-02-12 10:57 | Outpatient (AMB) | payer MEDICARE, SELFPAY ==
--- NOTE | 2023-02-12 10:57 | MHC.OFFVIS ---
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 She has background history of hypertension and hyperlipidemia. She was previously started on atorvastatin but it appears she had a rash on her body. She said she stop atorvastatin and to feel again and the rash came back. She was also started on ezetimibe 10 mg daily. On follow-up she is saying that she has stopped taking all her medications. Her blood pressure is significantly elevated on follow-up. She is saying at home she has checked her blood pressure and has fluctuated between 150s to low 100s. She has never had any dizziness or lightheadedness. At this point she is not taking any medications. 06/26/22: She was advised to restart her carvedilol and amlodipine. She also was advised to start ezetimibe 10 mg daily as she developed rash with statins. 10/02/22. She is here for follow-up. Her blood pressure is much better controlled with amlodipine. She is currently not taking carvedilol. She had lipid panel 1 month after she saw us. It appears she had other blood workup being done and the lipid panel was also drawn. She said she was not taking Zetia at that time. Her LDL was 133, total cholesterol 242, triglycerides 370 and HDL 35. We have decided to repeat a fasting lipid panel while she is taking Zetia and she will get it drawn. 02/12/23: She returns for follow-up. She has gained weight and has significant abdominal discomfort. She has been to the emergency department. She is following with gastroenterology. She has been found to have some pancreatic issues which I do not know the details of currently. She is complaining of abdominal pain. She is saying that she is passing stool and gas and does not appear to be related to any obstruction. She has been to the emergency department and no obvious cause was found. She is saying she has been cooking a lot more and has been eating a lot of baked goods. Her cholesterol numbers are worse than before. She is taking ezetimibe 10 mg daily. She had some issues with statins previously with body rash. 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 NECK: no carotid bruit, no jugular venous distention. SKIN: no suspicious lesions, warm and dry. HEART: no murmurs, regular rate and rhythm. LUNGS: clear to auscultation bilaterally. ABDOMEN: soft, nontender. mildly distended. EXTREMITIES: no edema. PERIPHERAL PULSES: equal. NEUROLOGIC: No gross deficits, AAO X 3 Assessment & Plan Assessment & Plan (1) Hyperlipidemia: Code(s): E78.5 - Hyperlipidemia, unspecified (2) Essential hypertension: Code(s): I10 - Essential (primary) hypertension Plan [age] year female who is here for follow-up. Her blood pressure is well controlled currently. She is complaining of significant abdominal issues and is following with GI. Lipid panel is quite abnormal in December. She is saying that her diet has been quite bad and she was eating a lot of control to do sugars and baked goods. I have advised her to adjust her diet and recheck a fasting lipid panel after that. She is currently taking ezetimibe 10 mg daily. She will continue that. She previously could not tolerate statins. Thank you for allowing me to participate in the care of your patient. Please feel free to contact me if you have any questions. Orders: Orders Lipid Panel Today E78.5 - Hyperlipidemia, unspecified Coding Level of Care Code Est Pt Level 4 (61871) Diagnoses Hyperlipidemia E78.5 Essential hypertension I10
[2023-02-12 11:00] VITALS: BP 122/66; PULSE 95; BMI 30.3
== END 2023-02-12 11:17 | disposition home or self-care (01) ==
PROVIDERS: Visit Provider Internal Medicine Cardiovascular Disease
DX: E78.5 Hyperlipidemia, unspecified (principal); I10 Essential (primary) hypertension
CPT/HCPCS: 99214

== ENCOUNTER → 2023-02-12 10:57 | Outpatient (BNVA) | payer MEDICARE, SELFPAY | PROVIDERS: Visit Provider Internal Medicine Cardiovascular Disease | DX: I10 Essential (primary) hypertension (principal); E78.5 Hyperlipidemia, unspecified | CPT/HCPCS: 99212 ==

== ENCOUNTER 2023-03-05 13:25 | Outpatient (REF) | payer MEDICARE, SELFPAY ==
[2023-03-05 14:38] LABS: Creatinine Urine 398.93 mg/dL; Microalbum/Creatinine Ratio Ur 16.2 ug/mg cr (<30)
[2023-03-05 14:39] LABS: Blood Urea Nitrogen 14 mg/dL (9-16); Cholesterol 224 mg/dL (<200); Estimated Glomerular Filt Rate 50; HDL Cholesterol 38 mg/dL (>40); LDL Cholesterol Calculated 142 mg/dL (<100); Triglycerides 223 mg/dL (<150)
[2023-03-05 14:52] LABS: Alanine Aminotransferase 13 U/L (0-31); Albumin Level 3.9 g/dL (3.5-5.0); Alkaline Phosphatase 87 U/L (39-117); Anion Gap 9 (12-20); Aspartate Amino Transferase 17 U/L (5-31); Bilirubin Total 0.4 mg/dL (0.0-1.0); Blood Urea Nitrogen 14 mg/dL (9-16); Calcium 9.4 mg/dL (8.4-10.2); Carbon Dioxide 31 mmol/L (22-29); Chloride 107 mmol/L (96-108); Estimated Glomerular Filt Rate 52; Glucose Random 102 mg/dL (60-115); Potassium 4.4 mmol/L (3.3-5.1); Sodium 143 mmol/L (135-145); Total Protein 7.2 g/dL (6.5-8.0)
[2023-03-05 14:57] LABS: Thyroid Stimulating Hormone 1.66 uIU/mL (0.32-4.0); Vitamin D 25-OH Total 19.3 ng/mL (>30)
== END 2023-03-05 13:26 | disposition home or self-care (01) ==
LOC: HO.LAB 13:25
PROVIDERS: Internal Medicine Cardiovascular Disease; PCP Hospitalist; Visit Provider Internal Medicine Gastroenterology
DX: R10.84 Generalized abdominal pain (principal); E78.5 Hyperlipidemia, unspecified; E66.09 Other obesity due to excess calories; I10 Essential (primary) hypertension
CPT/HCPCS: 36415; 80053; 80061; 82043; 82306; 82565; 82570; 84443; 84520

== ENCOUNTER 2023-03-06 11:20 | Outpatient (REF) | payer MEDICARE, SELFPAY ==
--- NOTE | ~2023-03-06 | CT_ITS ---
EXAMINATION: CT ABDOMEN AND PELVIS WITH CONTRAST CLINICAL INFORMATION: Elevated lipase. COMPARISON: Ultrasound of the abdomen 12/19/2022. TECHNIQUE: Multidetector volumetric images were obtained from the superior aspect of the liver through the pubic symphysis following administration 85 mL of Omnipaque 350 intravenous contrast. Sagittal and coronal reformatted images were obtained on the technologist's workstation. Oral contrast: No This CT examination was performed using dose optimization techniques as appropriate, variously including the following: *Automated exposure control *Adjustment of mA and/or kV according to patient size (this includes techniques or standardized protocols for targeted exams where dose is matched to indication/reason for exam; i.e. extremities or head) *Use of iterative reconstruction technique DLP: 470 mGy-cm FINDINGS: LUNG BASES: The visualized lung bases are unremarkable. Minimal basilar atelectasis is present. LIVER, GALLBLADDER, AND BILIARY TREE: The liver is enlarged measuring 19.7 cm in cephalocaudad dimension and demonstrates decreased attenuation, consistent with hepatic steatosis. No focal hepatic lesion or biliary ductal dilatation is present. The gallbladder is unremarkable with no evidence of radiopaque gallstones, gallbladder wall thickening, or obvious pericholecystic inflammatory changes. PANCREAS: Unremarkable. SPLEEN: Unremarkable. ADRENAL GLANDS: Unremarkable. KIDNEYS AND URETERS: The kidneys are normal in size, shape, and attenuation. No hydronephrosis, hydroureter, or calculi seen. A benign small 1.0 cm right upper pole Bosniak class I renal cyst is noted which requires no additional imaging or follow up. No solid renal masses are seen. No perinephric stranding. BLADDER: Unremarkable. GASTROINTESTINAL TRACT: The small and large bowel are unremarkable. The appendix is unremarkable. ABDOMINAL WALL: No significant hernia is appreciated. There is a tiny periumbilical hernia seen containing only fat. LYMPH NODES: No retroperitoneal lymphadenopathy. VASCULAR: Calcific atherosclerotic changes are present in the aorta and iliac vessels. There is no evidence of an abdominal aortic aneurysm. PELVIC VISCERA: The uterus and adnexa are unremarkable. OSSEOUS STRUCTURES: Marked degenerative changes are present from L4 through S1. No bony destructive lesions. CT/CT abdomen pelvis w IV con IMPRESSION: Incidental note made of an enlarged fatty liver, benign Bosniak class I right renal cyst which requires no additional imaging or follow up and degenerative changes in the spine. Fleischner guidelines were followed.
[2023-03-06] MEDS: iohexoL 350 MG/ML 100 ML INFUS..BTL IV (13:54)
[2023-03-06] MEDS: Barium Sulfate Oral (Berry) 450 ML ORAL.SUSP 900 ML PO (13:55)
== END 2023-03-06 11:21 | disposition home or self-care (01) ==
LOC: HO.CT 11:20
PROVIDERS: PCP Internal Medicine; Visit Provider Internal Medicine Gastroenterology
DX: R74.8 Abnormal levels of other serum enzymes (principal)
CPT/HCPCS: 74177; Q9967

== ENCOUNTER 2023-07-11 13:34 | Outpatient (REF) | payer MEDICARE, SELFPAY ==
--- NOTE | ~2023-07-11 | MM_ITS ---
EXAMINATION: MM SCREENING DIGITAL BREAST TOMOSYNTHESIS, BILATERAL CLINICAL INFORMATION: Screening. Asymptomatic. COMPARISON: Mammography: This study is compared with prior exams dating back to 2022. TECHNIQUE: Digital breast tomosynthesis is performed in both the craniocaudal and mediolateral oblique views along with computer-aided detection (CAD). Synthesized 2D images are generated from the tomosynthesis. FINDINGS: There are scattered areas of fibroglandular density (ACR BI-RADS breast composition Category b). There are no significant masses, abnormal calcifications, or other abnormalities. MM/MM tomosynthesis screening BI IMPRESSION: No mammographic evidence of malignancy. ASSESSMENT: BI-RADS BI-RADS 1 - Negative RECOMMENDATION: Routine annual mammography screening. 1 year F/U This examination should not preclude the clinical evaluation of a suspicious palpable abnormality. This patient's information was entered into a reminder system with a target due date for their next mammogram.
== END 2023-07-11 13:35 | disposition home or self-care (01) ==
LOC: HO.MAMMO 13:34
PROVIDERS: PCP Hospitalist; Visit Provider Hospitalist
DX: Z12.31 Encounter for screening mammogram for malignant neoplasm of breast (principal)
CPT/HCPCS: 77063; 77067

== ENCOUNTER → 2023-07-11 14:00 | Outpatient (BNV) | payer MEDICARE, SELFPAY | PROVIDERS: PCP Hospitalist; Visit Provider Radiology Diagnostic Radiology | DX: Z12.31 Encounter for screening mammogram for malignant neoplasm of breast (principal) | CPT/HCPCS: 77063; 77067 ==

== ENCOUNTER 2023-07-30 09:24 | Outpatient (REF) | payer MEDICARE, SELFPAY ==
[2023-07-30 11:31] LABS: Alanine Aminotransferase 17 U/L (0-31); Alkaline Phosphatase 80 U/L (39-117); Anion Gap 15 (12-20); Aspartate Amino Transferase 22 U/L (5-31); Bilirubin Total 0.5 mg/dL (0.0-1.0); Blood Urea Nitrogen 14 mg/dL (9-16); Calcium 9.3 mg/dL (8.4-10.2); Carbon Dioxide 27 mmol/L (22-29); Chloride 102 mmol/L (96-108); Estimated Glomerular Filt Rate 45; Glucose Random 104 mg/dL (60-115); Potassium 3.8 mmol/L (3.3-5.1); Sodium 140 mmol/L (135-145); Total Protein 7.7 g/dL (6.5-8.0)
[2023-07-30 11:34] LABS: Thyroid Stimulating Hormone 0.94 uIU/mL (0.32-4.0); Vitamin D 25-OH Total 23.2 ng/mL (>30)
[2023-07-30 11:54] LABS: Creatinine Urine 283.93 mg/dL
== END 2023-07-30 09:25 | disposition home or self-care (01) ==
LOC: HO.LAB 09:24
PROVIDERS: PCP Hospitalist; Visit Provider Hospitalist
DX: E66.09 Other obesity due to excess calories (principal); I10 Essential (primary) hypertension
CPT/HCPCS: 36415; 80053; 82043; 82306; 82570; 84443

== ENCOUNTER 2023-08-14 10:44 | Outpatient (REF) | payer MEDICARE, SELFPAY ==
[2023-08-14 12:55] LABS: Cholesterol 212 mg/dL (<200); HDL Cholesterol 31 mg/dL (>40); LDL Cholesterol Calculated 141 mg/dL (<100); Triglycerides 202 mg/dL (<150)
[2023-08-15 14:23] LABS: CRP High Sensitivity 6.9 mg/L
== END 2023-08-14 10:45 | disposition home or self-care (01) ==
LOC: HO.LAB 10:44
PROVIDERS: Physician Assistant Medical; PCP Hospitalist; Visit Provider Internal Medicine Cardiovascular Disease
DX: E78.5 Hyperlipidemia, unspecified (principal); R10.9 Unspecified abdominal pain
CPT/HCPCS: 36415; 80061; 86141; 87338

== ENCOUNTER 2023-10-08 07:50 | Outpatient (AMB) | payer MEDICARE, SELFPAY ==
--- NOTE | 2023-10-08 08:04 | A.OFFVIS_ITS ---
Vital Signs 10/08/23 08:11 Height 5 ft 3 in Weight 166 lb BMI 29.4 BP 128/72 Blood Pressure Location Rt brachial Position Sitting Pulse 73 Intake Visit Reasons: Abdominal Pain Intake Note: Patient scheduled today's appointment for same problem as last visit December 26, 2022. Patient c/o: abdominal pain that comes and goes throughout the day. Denies nausea, diarrhea, constipation. Has been dealing with this pain for almost 2yrs. All testing has been negative. Patient c/o RUQ pain that is worse in the morning, felt pain after swimming, yard work. 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 Accompanied by: Self / Same As Patient Allergies atorvastatin Allergy (Intermediate, Verified 10/08/23 08:10) Rash red yeast rice Allergy (Verified 10/08/23 08:10) Rash PFSH Medical History Essential hypertension Hyperlipidemia No significant past medical history Surgical History Biliary colic History of post-sterilization tuboplasty History of arthroplasty of right shoulder Family History Maternal Aunt Breast CA Brother Stroke Mother Stroke Rheumatoid arthritis Social History Household Members: None Housing: House Alcohol intake: current Alcohol intake frequency: holidays/special occasions only Patient Tobacco Use Status: Never used Tobacco Current occupational status: employed and retired 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
[2023-10-08 08:11] VITALS: BP 128/72; PULSE 73; BMI 29.4
--- NOTE | 2023-10-08 08:13 | A.OFFVIS_ITS ---
Vital Signs 10/08/23 08:11 Height 5 ft 3 in Weight 166 lb BMI 29.4 BP 128/72 Blood Pressure Location Rt brachial Position Sitting Pulse 73 Intake Visit Reasons: Abdominal Pain Allergies atorvastatin Allergy (Intermediate, Verified 10/08/23 08:10) Rash red yeast rice Allergy (Verified 10/08/23 08:10) Rash HPI Comments Details: Because of persistent abdominal wall/epigastric discomfort. Patient has had an extensive and exhaustive workup for this including endoscopy, recent CT scan, approximately 2 years ago HIDA scan all of which have been negative. She has tolerating a diet. He is having regular bowel habits. She complains abdominal spasming and discomfort. She denies any trauma to the area. This is no different than when we saw her in the recent past for her symptoms. 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 Abdomen is soft, mildly corpulent, benign. No evidence of any mass, rebound, organomegaly, or tenderness. Assessment & Plan Assessment & Plan (1) Abdominal pain in female patient: Code(s): R10.9 - Unspecified abdominal pain Category: Surgical Plan Fortunately, no evidence for any surgical intervention for the patient's issues. Her workup including a recent CT scan as noted above were all negative. At present, I recommend the patient reconnect with the senior category manager. All questions answered. Patient will otherwise follow-up p.r.n.. Coding Level of Care Code Est Pt Level 3 (43106) Diagnoses Abdominal pain in female patient R10.9
== END 2023-10-08 08:32 | disposition home or self-care (01) ==
PROVIDERS: PCP Hospitalist; Visit Provider Surgery
DX: R10.9 Unspecified abdominal pain (principal)
CPT/HCPCS: 99213

== ENCOUNTER → 2023-10-08 07:50 | Outpatient (BNVA) | payer MEDICARE, SELFPAY | PROVIDERS: PCP Hospitalist; Visit Provider Surgery | DX: R10.13 Epigastric pain (principal) | CPT/HCPCS: 99212 ==

== ENCOUNTER 2023-12-20 10:12 | Outpatient (AMB) | payer MEDICARE, SELFPAY ==
[2023-12-20 10:26] VITALS: BP 124/68; PULSE 78; O2SAT 97; BMI 29.1
--- NOTE | 2023-12-20 10:26 | A.OFFVIS_ITS ---
Vital Signs 12/20/23 10:26 Height 5 ft 3 in Weight 164 lb 0.383 oz BMI 29.1 BP 124/68 Blood Pressure Location Lt brachial Position Sitting Pulse 78 Pulse Source Pulse Oximeter Pulse Oximetry (%) 97 Oxygen Delivery Method Room Air Intake Visit Reasons: oa Intake Note: Patient last seen by Doctor Ivett Hendrix on 12/20/22. Presents today for OA and 1 year follow up. Allergies atorvastatin Allergy (Intermediate, Verified 12/20/23 10:28) Rash red yeast rice Allergy (Verified 12/20/23 10:28) Rash Medication List - Last Reconciled 12/20/23 by Ivett Hendrix MD amlodipine 5 mg PO DAILY ezetimibe (Zetia) 10 mg PO DAILY HPI Comments Details: 68year-old female with generalized osteoarthritis returns for follow-up. She continues to have intermittent aches and pains of her joints, especially her hands but it does not stop her from doing what she has to do. Her main complaint is her right upper quadrant pain. For that particular concerns she has had extensive workup including HIDA scan, CT scans, endoscopy all of which were negative. There has been no clear diagnosis. Initial history: This is a 66-year-old female who presents for follow-up. Patient stated that about 12 days ago she went to the ER due to relatively abrupt right lower back, right buttock, right groin and right hip pain radiating from the back of her thigh towards her leg. She had x-rays of her lower back and hips which showed arthritis. Venous duplex showed no evidence of DVT. Patient was discharged home on NSAIDs without much relief. She went to an process eng and she states that acupuncture helps her. Patient cannot recall an injury or doing something that might have injured her back or hip. Continues to have similar pain [facility] Medical History Essential hypertension Hyperlipidemia No significant past medical history Surgical History Biliary colic History of post-sterilization tuboplasty History of arthroplasty of right shoulder Family History Maternal Aunt Breast CA Brother Stroke Mother Stroke Rheumatoid arthritis Social History Household Members: None Housing: House Alcohol intake: current Alcohol intake frequency: holidays/special occasions only Patient Tobacco Use Status: Never used Tobacco Current occupational status: employed and retired 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 [employer] Sexual orientation: Straight/Heterosexual Gender identity: Female Female Reproductive History Menstrual Age of Menarche: 10 Review of Systems GI Reports abdominal pain Musc Reports arthralgias and Reports tingling Neuro Reports tingling Physical Exam Vital Signs: Last Vital Signs Pulse 78 12/20/23 10:26 BP 124/68 12/20/23 10:26 Pulse Ox 97 12/20/23 10:26 Oxygen Delivery Method Room Air 12/20/23 10:26 BMI result Body Mass Index 29.1 Const General: cooperative and healthy appearing Nutritional Appearance: average body habitus Orientation/consciousness: patient oriented x3 Limitations: no limitations HEENT Head: Yes normocephalic and Yes atraumatic Mouth: moist mucous membranes Resp Effort & Inspection: normal respiratory effort and able to speak in complete sentences Neuro General: patient oriented x3 Extrem Other: Extensive osteoarthritic changes of both hands with prominent Heberden's and Kacie's nodes. Patient walks normally today No buttock tenderness bilaterally today Negative straight leg raise test bilaterally today Negative Spurling's test bilaterally Assessment & Plan Assessment & Plan (1) Osteoarthritis of hands, bilateral: Code(s): M19.041 - Primary osteoarthritis, right hand; M19.042 - Primary osteoarthritis, left hand Category: Medical Qualifiers: Osteoarthritis type: primary Qualified Code(s): M19.041 - Primary osteoarthritis, right hand; M19.042 - Primary osteoarthritis, left hand Plan: 68-year-old female with generalized osteoarthritis returns for follow-up. Her symptoms are quite mild and do not limit her in any way. No specific treatment is needed Follow-up with me as needed Plan I spent 17 minutes reviewing patient's chart, evaluating patient, counseling patient and documenting in the chart Coding Level of Care Code Est Pt Level 3 (62562) Diagnoses Primary osteoarthritis of both hands M19.041; M19.042 Osteoarthritis type: primary
== END 2023-12-20 11:05 | disposition home or self-care (01) ==
PROVIDERS: PCP Hospitalist; Visit Provider Student in an Organized Health Care Education/Training Program
DX: M19.041 Primary osteoarthritis, right hand (principal); M19.042 Primary osteoarthritis, left hand
CPT/HCPCS: 99213

== ENCOUNTER → 2023-12-20 10:12 | Outpatient (BNVA) | payer MEDICARE, SELFPAY | PROVIDERS: PCP Hospitalist; Visit Provider Student in an Organized Health Care Education/Training Program | DX: M19.041 Primary osteoarthritis, right hand (principal); M19.042 Primary osteoarthritis, left hand; R10.11 Right upper quadrant pain | CPT/HCPCS: 99212 ==

== ENCOUNTER 2024-01-23 08:35 | Outpatient (REF) | payer MEDICARE, SELFPAY ==
--- NOTE | ~2024-01-23 | US_ITS ---
EXAMINATION: US ABDOMEN COMPLETE CLINICAL INFORMATION: Right upper quadrant pain. COMPARISON: CT abdomen pelvis 03/06/2023 and ultrasound abdomen 12/19/2022. TECHNIQUE: Real-time imaging of the abdominal viscera. FINDINGS: PANCREAS: Normal. ABDOMINAL AORTA: The proximal, mid, and distal segments are normal in caliber. INFERIOR VENA CAVA: Visualized portions are normal. LIVER: The liver is enlarged at at least 20 cm in greatest length with increased echogenicity consistent with hepatic steatosis. . The liver contour is normal. No focal hepatic lesion. There is no intrahepatic biliary duct dilatation seen. GALLBLADDER: Normal. The gallbladder is physiologically distended without evidence of stones, sludge, polyps, wall thickening or pericholecystic fluid. COMMON BILE DUCT: Normal in caliber measuring 0.4 cm in diameter. RIGHT KIDNEY: A benign exophytic upper pole 1.9 cm Bosniak class I renal cyst is noted which requires no additional imaging or follow up. No solid renal masses are seen. There is an echogenic focus in the upper pole measuring 5 mm which is consistent with a nonobstructing calculus similar to that seen on prior study. No hydronephrosis. . The kidney measures 9.8 cm in maximum dimension. LEFT KIDNEY: No hydronephrosis. No renal calculi or focal parenchymal lesions. The kidney measures 10.2 cm in maximum dimension. SPLEEN: Normal. The spleen measures 10.4 cm in maximum dimension. FREE FLUID: None. US/US abdomen complete IMPRESSION: 1. Enlarged fatty liver. 2. Nonobstructing 5 mm right upper pole renal calculus, similar to prior. Electronically signed by: Agusto Egan MD 02/13/2024 10:39 AM EST
[2024-01-23 10:46] LABS: Hematocrit 38.4 % (37.0-47.0); Hemoglobin 12.6 g/dl (12.0-16.0); Mean Corpuscular HGB Conc 32.8 g/dl (31.0-35.0); Mean Corpuscular Hemoglobin 27.7 pg (27.0-33.0); Mean Corpuscular Volume 84.4 fL (80.0-98.0); Mean Platelet Volume 9.6 fL (9.4-12.3); Platelet Count 333 X10*3/uL (160-400); Red Blood Count 4.55 X10*6/uL (4.20-5.50); Red Cell Distribution Width 13.9 % (11.0-16.0); White Blood Count 8.9 X10*3/uL (4.8-10.8)
[2024-01-23 11:39] LABS: Cholesterol 223 mg/dL (<200); HDL Cholesterol 39 mg/dL (>40); LDL Cholesterol Calculated 137 mg/dL (<100); Triglycerides 239 mg/dL (<150)
[2024-01-23 11:44] LABS: Alanine Aminotransferase 21 U/L (0-31); Albumin Level 3.8 g/dL (3.5-5.0); Alkaline Phosphatase 87 U/L (39-117); Aspartate Amino Transferase 26 U/L (5-31); Bilirubin Direct 0.2 mg/dL (0.0-0.5); Bilirubin Total 0.5 mg/dL (0.0-1.0); Lipase 43 U/L (8-78)
== END 2024-01-23 08:36 | disposition home or self-care (01) ==
LOC: HO.US 08:35
PROVIDERS: Absent Provider Internal Medicine Cardiovascular Disease; PCP Hospitalist; Visit Provider Internal Medicine Gastroenterology
DX: R10.11 Right upper quadrant pain (principal); E78.5 Hyperlipidemia, unspecified; K76.0 Fatty (change of) liver, not elsewhere classified
CPT/HCPCS: 36415; 76700; 80061; 80076; 83690; 85027

== ENCOUNTER 2024-01-28 14:17 | Outpatient (AMB) | payer MEDICARE, SELFPAY ==
[2024-01-28 14:21] VITALS: BP 100/62; BMI 29.1
--- NOTE | 2024-01-28 14:21 | A.OFFVIS_ITS ---
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 No complaints. Last Pap/HPV was negative in 11/19 Last Mammogram was in 07/24 was BI-RADS 1 Last Colonoscopy was in 03/21 Last DEXA scan was in 12/22, the patient had osteopenia [facility] Medical History Essential hypertension Hyperlipidemia No significant past medical history Surgical History Biliary colic History of post-sterilization tuboplasty History of arthroplasty of right shoulder Family History Maternal Aunt Breast CA Brother Stroke Mother Stroke Rheumatoid arthritis Social History Household Members: None Housing: House Alcohol intake: current Alcohol intake frequency: holidays/special occasions only Patient Tobacco Use Status: Never used Tobacco Current occupational status: employed and retired 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 Sexual orientation: Straight/Heterosexual Gender identity: Female Female Reproductive History Menstrual Age of Menarche: 10 Total pregnancies: 3 Full term: 2 Number of Living Children: 2 Ab spontaneous: 1 Date of last pap smear: 11/14/22 History of abnormal pap smear: Yes History of STI: No Date of Mammogram: 07/11/23 History of abnormal mammogram: No Review of Systems Const All systems reviewed & are unremarkable except as noted in HPI and below Card Reports as per HPI Resp Reports as per HPI GI Reports as per HPI and Reports no additional complaints Reports as per HPI Physical Exam Vital Signs: Last Vital Signs BP 100/62 01/28/24 14:21 BMI result Body Mass Index 29.1 Const General: cooperative, healthy appearing and comfortable Chest Chest palpation & inspection: normal inspection of the chest and normal palpation of entire chest wall Breast/axilla inspection: normal inspection of the breasts and normal inspection of the axillae Breast/axilla palpation: normal palpation of the breasts, normal palpation of the axillae and no axillary lymphadenopathy Resp Effort & Inspection: normal respiratory effort Auscultation: clear to auscultation bilaterally Percussion: percussion normal Cardio Palpation: normal PMI Rate: regular rate Rhythm: regular rhythm Heart sounds: no murmurs and no rubs Peripheral pulses: Peripheral pulses 2+ throughout GI Inspection: Yes normal to inspection Palpation (GI): Soft to palpation, nontender, no guarding, not rigid and No hepatosplenomegaly present Percussion: Yes normal to percussion Auscultation: normal bowel sounds Rectal Exam - Female: deferred General: Yes bladder normal to palpation External Female Exam: No lesion Speculum Exam - Vagina: normal appearance of the vagina, normal palpation, normal vaginal discharge and not erythematous Speculum Exam - Cervix: normal appearance of the cervix and normal palpation Bimanual exam- vagina & uterus: normal bimanual exam, normal palpation, uterine size normal, bladder normal to palpation, consistency normal and normal palpation Bimanual Exam- Adnexa, other: normal adnexae, no masses and no tenderness Assessment & Plan Assessment & Plan (1) Well woman exam: Code(s): Z01.419 - Encounter for gynecological examination (general) (routine) without abnormal findings Category: Medical Plan: Co testing not indicated this year. Counseled the patient about the recommended dietary allowance of 1200 mg of Calcium & 800 IU of vitamin D. Instructions given the patient to schedule next screen Mammogram in 07/25. Will order DEXA scan . The patient was instructed to perform monthly self-breast exams and to schedule a 2 week DEXA scan follow-up appointment and an annual exam in a year; All questions answered and the patient verbalized understanding. Orders: Orders XR DEXA axial skeleton Today Z78.0 - Asymptomatic menopausal state Coding Level of Care Code Est Pt Prev Care >65y(06317) Diagnoses Well woman exam Z01.419
== END 2024-01-28 14:47 | disposition home or self-care (01) ==
LOC: HO.HWS 14:17
PROVIDERS: Visit Provider Obstetrics & Gynecology
DX: Z01.419 Encounter for gynecological examination (general) (routine) without abnormal findings (principal)
CPT/HCPCS: 99397

== ENCOUNTER → 2024-01-28 14:17 | Outpatient (BNVA) | payer MEDICARE, SELFPAY | PROVIDERS: Visit Provider Obstetrics & Gynecology | DX: Z01.419 Encounter for gynecological examination (general) (routine) without abnormal findings (principal); Z78.0 Asymptomatic menopausal state | CPT/HCPCS: 99397 ==

== ENCOUNTER 2024-03-03 12:37 | Outpatient (REF) | payer MEDICARE, SELFPAY ==
[2024-03-03 14:31] LABS: Blood Urea Nitrogen 14 mg/dL (9-16); Estimated Glomerular Filt Rate 37
== END 2024-03-03 12:38 | disposition home or self-care (01) ==
LOC: HO.LAB 12:37
PROVIDERS: PCP Hospitalist; Visit Provider Internal Medicine Gastroenterology
DX: R10.84 Generalized abdominal pain (principal)
CPT/HCPCS: 36415; 82565; 84520

== ENCOUNTER 2024-03-05 11:04 | Outpatient (REF) | payer MEDICARE, SELFPAY ==
--- NOTE | ~2024-03-05 | CT_ITS ---
EXAMINATION: CT ABDOMEN AND PELVIS WITH CONTRAST CLINICAL INFORMATION: Right-sided abdominal pain COMPARISON: CT abdomen/pelvis dated 03/06/2023 TECHNIQUE: Multidetector volumetric images were obtained from the superior aspect of the liver through the pubic symphysis following administration 85 mL of Omnipaque 350 intravenous contrast. Sagittal and coronal reformatted images were obtained on the technologist's workstation. Oral contrast: No This CT examination was performed using dose optimization techniques as appropriate, variously including the following: *Automated exposure control *Adjustment of mA and/or kV according to patient size (this includes techniques or standardized protocols for targeted exams where dose is matched to indication/reason for exam; i.e. extremities or head) *Use of iterative reconstruction technique DLP: 428 mGy-cm FINDINGS: LUNG BASES: The visualized lung bases are unremarkable. LIVER, GALLBLADDER, AND BILIARY TREE: The liver is enlarged measuring 18.6 cm in craniocaudal dimension and diffusely low in attenuation in keeping with hepatic steatosis. No focal hepatic lesion or biliary ductal dilatation is present. The gallbladder is unremarkable with no evidence of radiopaque gallstones, gallbladder wall thickening, or obvious pericholecystic inflammatory changes. PANCREAS: Unremarkable. SPLEEN: Unremarkable. ADRENAL GLANDS: Unremarkable. KIDNEYS AND URETERS: Stable mild right pelvocaliectasis. No evidence of obstructing stone or mass. No left hydronephrosis. The kidneys are otherwise normal in size, shape, and attenuation. No calculi seen. No perinephric stranding. 1.5 cm simple cyst in the upper pole of the right kidney is likely benign and does not require further imaging follow-up. BLADDER: Unremarkable. GASTROINTESTINAL TRACT: The small and large bowel are unremarkable. The appendix is unremarkable. ABDOMINAL WALL: No significant hernia is appreciated. LYMPH NODES: Normal. VASCULAR: Atherosclerosis of aorta and its branches. No abdominal aortic aneurysm. PELVIC VISCERA: Unremarkable. OSSEOUS STRUCTURES: Degenerative changes of the visualized spine. CT/CT abdomen pelvis w IV con IMPRESSION: 1. No acute abnormality within the abdomen or pelvis. 2. Hepatomegaly and hepatic steatosis. 3. Stable mild right pelvocaliectasis. No evidence of obstructing stone or mass. Fleischner guidelines were followed. Electronically signed by: Sarah Peguero MD 03/05/2024 09:48 PM EST
[2024-03-05] MEDS: Barium Sulfate Oral (Berry) 450 ML ORAL.SUSP 900 ML PO (13:35)
[2024-03-05] MEDS: iohexoL 350 MG/ML 100 ML INFUS..BTL 85 ML IV (13:35)
[2024-03-05 14:04] LABS: Hematocrit 36.2 % (37.0-47.0); Mean Corpuscular HGB Conc 33.1 g/dl (31.0-35.0); Mean Corpuscular Hemoglobin 28.2 pg (27.0-33.0); Platelet Count 326 X10*3/uL (160-400); Red Blood Count 4.26 X10*6/uL (4.20-5.50); Red Cell Distribution Width 14.3 % (11.0-16.0); White Blood Count 9.9 X10*3/uL (4.8-10.8)
[2024-03-05 14:37] LABS: Alanine Aminotransferase 22 U/L (0-31); Albumin Level 3.8 g/dL (3.5-5.0); Alkaline Phosphatase 80 U/L (39-117); Aspartate Amino Transferase 28 U/L (5-31); Bilirubin Direct 0.1 mg/dL (0.0-0.5); Bilirubin Total 0.3 mg/dL (0.0-1.0); Lipase 35 U/L (8-78); Total Protein 6.9 g/dL (6.5-8.0)
--- OUTSIDE RECORDS SUMMARY | 2024-03-11 17:58 | XMS_ITS ---
Author Organization [facility] Address [address] [place] [address] Care Team Providers Care Pot Fluxer Name Role Phone GARRETT DELGADOD Primary Care Provider Natty Jordan Jr, Julien Payne REASON FOR VISIT labs Encounters Encounter Location Date Provider Diagnosis [facility] [address] [place] [address] 03/03/2024 Julien Jordan Jr PLAN OF TREATMENT Next Appt Details Provider Name:Julien lee Jr, 01/14/2025 10:20:00 AM, [address], [address], [place], [address],
--- OUTSIDE RECORDS SUMMARY | 2024-03-11 17:58 | XMS_ITS | Patient Health Record ---
Author Organization [facility] Address [address] [place] [address] Care Team Providers Care Consultant Intern Name Role Phone JHONY DELGADO Primary Care Provider Julien Johnson Jr [phone] ALLERGIES No Known Allergies RESULTS Component Value Reference Range Notes Complete Blood Count no Diff Reviewed date:01/24/2024 07:43:21 AM Interpretation: Performing Lab:[facility], [address] [place] [id number] Notes/Report: White Blood Count 8.9 4.8-10.8 X10*3/uL Red Blood Count 4.55 4.20-5.50 X10*6/uL Hemoglobin 12.6 12.0-16.0 g/dl Hematocrit 38.4 37.0-47.0 % Mean Corpuscular Volume 84.4 80.0-98.0 fL Mean Corpuscular Hemoglobin 27.7 27.0-33.0 pg Mean Corpuscular HGB Conc 32.8 31.0-35.0 g/dl Red Cell Distribution Width 13.9 11.0-16.0 % Platelet Count 333 160-400 X10*3/uL Mean Platelet Volume 9.6 9.4-12.3 fL NRBC Pct Auto 0.0 0.0-0.2 /100WBC NRBC Abs Auto 0.000 0.0-0.012 X10*3/uL Liver Panel Reviewed date:01/24/2024 07:43:35 AM Interpretation: Performing Lab:[facility], [address] [place] [phone] Notes/Report: Bilirubin Total 0.5 0.0-1.0 mg/dL Bilirubin Direct 0.2 0.0-0.5 mg/dL Aspartate Amino Transferase 26 5-31 U/L Alanine Aminotransferase 21 0-31 U/L Total Protein 7.0 6.5-8.0 g/dL Albumin Level 3.8 3.5-5.0 g/dL Alkaline Phosphatase 87 39-117 U/L Lipase Reviewed date:01/24/2024 07:43:47 AM Interpretation: Performing Lab:[facility], [address] [place] [phone] Notes/Report: Lipase 43 8-78 U/L US abdomen complete Reviewed date:02/14/2024 08:35:33 AM Interpretation: Performing Lab: Notes/Report: [address] [address] Ultrasound Report Signed Patient: Joan Viveros MR#: [id number] 4 : 1955 Acct:[id number] Age/Sex: 68 / F ADM Date: 01/23/24 Loc: HO.US Attending Dr: Julien Jordan MD Ordering Physician: Julien Jordan MD Date of Service: 01/23/24 Procedure(s): US abdomen complete Accession Number(s): [id number] cc: Julien Jordan MD; Leandro Delgado MD EXAMINATION: US ABDOMEN COMPLETE CLINICAL INFORMATION: Right upper quadrant pain. COMPARISON: CT abdomen pelvis 03/06/2023 and ultrasound abdomen 12/19/2022. TECHNIQUE: Real-time imaging of the abdominal viscera. FINDINGS: PANCREAS: Normal. ABDOMINAL AORTA: The proximal, mid, and distal segments are normal in caliber. INFERIOR VENA CAVA: Visualized portions are normal. LIVER: The liver is enlarged at at least 20 cm in greatest length with increased echogenicity consistent with hepatic steatosis. . The liver contour is normal. No focal hepatic lesion. There is no intrahepatic biliary duct dilatation seen. GALLBLADDER: Normal. The gallbladder is physiologically distended without evidence of stones, sludge, polyps, wall thickening or pericholecystic fluid. COMMON BILE DUCT: Normal in caliber measuring 0.4 cm in diameter. RIGHT KIDNEY: A benign exophytic upper pole 1.9 cm Bosniak class I renal cyst is noted which requires no additional imaging or follow up. No solid renal masses are seen. There is an echogenic focus in the upper pole measuring 5 mm which is consistent with a nonobstructing calculus similar to that seen on prior study. No hydronephrosis. . The kidney measures 9.8 cm in maximum dimension. LEFT KIDNEY: No hydronephrosis. No renal calculi or focal parenchymal lesions. The kidney measures 10.2 cm in maximum dimension. SPLEEN: Normal. The spleen measures 10.4 cm in maximum dimension. FREE FLUID: None. US/US abdomen complete IMPRESSION: 1. Enlarged fatty liver. 2. Nonobstructing 5 mm right upper pole renal calculus, similar to prior. Electronically signed by: Agusto Egan MD 02/13/2024 10:39 AM [facility] [place] Dictated By: Agusto Egan MD Signed By: <Electronically signed by Agusto Egan MD in OV> 02/13/24 1039 DD/ TD/TT: 01/23/24 0952 Advertising Sales Representative: Blood Urea Nitrogen Reviewed date:03/03/2024 04:20:51 PM Interpretation: Performing Lab:[address] [address] Notes/Report: Blood Urea Nitrogen 14 9-16 mg/dL Creatinine Reviewed date:03/03/2024 04:20:45 PM Interpretation: Performing Lab:[facility], [address] [place] [phone] Notes/Report: Creatinine 1.41 0.5-1.4 mg/dL Estimated Glomerular Filt Rate 37 Chronic Kidney Disease: Estimated GFR < 60 mL/min/1.73m2 Severe Kidney Disease: Estimated GFR < 15 mL/min/1.73m2 Complete Blood Count no Diff Reviewed date:03/06/2024 09:17:57 AM Interpretation: Performing Lab:[facility], [address] [place] [phone] Notes/Report: White Blood Count 9.9 4.8-10.8 X10*3/uL Red Blood Count 4.26 4.20-5.50 X10*6/uL Hemoglobin 12.0 12.0-16.0 g/dl Hematocrit 36.2 37.0-47.0 % Mean Corpuscular Volume 85.0 80.0-98.0 fL Mean Corpuscular Hemoglobin 28.2 27.0-33.0 pg Mean Corpuscular HGB Conc 33.1 31.0-35.0 g/dl Red Cell Distribution Width 14.3 11.0-16.0 % Platelet Count 326 160-400 X10*3/uL Mean Platelet Volume 10.0 9.4-12.3 fL NRBC Pct Auto 0.0 0.0-0.2 /100WBC NRBC Abs Auto 0.000 0.0-0.012 X10*3/uL Liver Panel Reviewed date:03/06/2024 09:17:50 AM Interpretation: Performing Lab:[address] [address] Notes/Report: Bilirubin Total 0.3 0.0-1.0 mg/dL Bilirubin Direct 0.1 0.0-0.5 mg/dL Aspartate Amino Transferase 28 5-31 U/L Alanine Aminotransferase 22 0-31 U/L Total Protein 6.9 6.5-8.0 g/dL Albumin Level 3.8 3.5-5.0 g/dL Alkaline Phosphatase 80 39-117 U/L Lipase Reviewed date:03/06/2024 09:17:44 AM Interpretation: Performing Lab:[address] [address] Notes/Report: Lipase 35 8-78 U/L CT abdomen pelvis w con Reviewed date:03/06/2024 09:18:01 AM Interpretation: Performing Lab: Notes/Report: [address] [address] [address] Scan Report Signed Patient: Joan Viveros MR#: [id number] 4 : 1955 Acct:[id number] Age/Sex: 68 / F ADM Date: 03/05/24 Loc: HO.CT Attending Dr: Julien Jordan MD Ordering Physician: Julien Jordan MD Date of Service: 03/05/24 Procedure(s): CT abdomen pelvis w IV con Accession Number(s): [id number] cc: Julien Jordan MD EXAMINATION: CT ABDOMEN AND PELVIS WITH CONTRAST CLINICAL INFORMATION: Right-sided abdominal pain COMPARISON: CT abdomen/pelvis dated 03/06/2023 TECHNIQUE: Multidetector volumetric images were obtained from the superior aspect of the liver through the pubic symphysis following administration 85 mL of Omnipaque 350 intravenous contrast. Sagittal and coronal reformatted images were obtained on the technologist's workstation. Oral contrast: No This CT examination was performed using dose optimization techniques as appropriate, variously including the following: *Automated exposure control *Adjustment of mA and/or kV according to patient size (this includes techniques or standardized protocols for targeted exams where dose is matched to indication/reason for exam; i.e. extremities or head) *Use of iterative reconstruction technique DLP: 428 mGy-cm FINDINGS: LUNG BASES: The visualized lung bases are unremarkable. LIVER, GALLBLADDER, AND BILIARY TREE: The liver is enlarged measuring 18.6 cm in craniocaudal dimension and diffusely low in attenuation in keeping with hepatic steatosis. No focal hepatic lesion or biliary ductal dilatation is present. The gallbladder is unremarkable with no evidence of radiopaque gallstones, gallbladder wall thickening, or obvious pericholecystic inflammatory changes. PANCREAS: Unremarkable. SPLEEN: Unremarkable. ADRENAL GLANDS: Unremarkable. KIDNEYS AND URETERS: Stable mild right pelvocaliectasis. No evidence of obstructing stone or mass. No left hydronephrosis. The kidneys are otherwise normal in size, shape, and attenuation. No calculi seen. No perinephric stranding. 1.5 cm simple cyst in the upper pole of the right kidney is likely benign and does not require further imaging follow-up. BLADDER: Unremarkable. GASTROINTESTINAL TRACT: The small and large bowel are unremarkable. The appendix is unremarkable. ABDOMINAL WALL: No significant hernia is appreciated. LYMPH NODES: Normal. VASCULAR: Atherosclerosis of aorta and its branches. No abdominal aortic aneurysm. PELVIC VISCERA: Unremarkable. OSSEOUS STRUCTURES: Degenerative changes of the visualized spine. CT/CT abdomen pelvis w IV con IMPRESSION: 1. No acute abnormality within the abdomen or pelvis. 2. Hepatomegaly and hepatic steatosis. 3. Stable mild right pelvocaliectasis. No evidence of obstructing stone or mass. Fleischner guidelines were followed. Electronically signed by: Sarah Peguero MD 03/05/2024 09:48 PM EST Dictated By: Sophia Peguero Signed By: <Electronically signed by Sophia Peguero in OV> 03/05/248 DD/ 1305 TD/TT: 03/05/24 1314 Advertising Sales Representative: REASON FOR REFERRAL No Information MEDICATIONS Medication SIG (Take, Route, Frequency, Duration) Notes Start Date End Date Status Ezetimibe 10 MG Oral for 30 Ac tive Multivitamin Adult A ctive amLODIPine Besy-Benazepril HCl 5-10 MG as directed Orally Active Dicyclomine HCl 20 MG 1 tablet Orally 2- 4 times a day 02/20/2024 Active IMMUNIZATIONS Vaccine Route Administration Date Status Comme nts Influenza Unknown 03/19/2020 Refused Influenza Unknown 02/27/2022 Refused Influenza Unknown 01/15/2023 Refused SOCIAL HISTORY Tobacco Use: Social History Observation Description Date Details (start date - stop date) Never Smoker NA - NA Sex Assigned At : Social History Observation Description Sex Assigned At Unknown Tobacco Use/Smoking Question Answer Notes Patient is a nonsmoker Alcohol Screen Question Answer Notes Did you have a drink containing alcohol in the p ast year? No Points 0 Interpretation Negative PROBLEMS Problem Type ICD Code Onset Dates Problem Status W/U Status Risk SNOMED Code Notes Problem Bloating (R14.0) Active confirmed 48031 9008 Problem Weight loss (R63.4) Active confirmed 07476082 Problem Right upper quadrant pain (R10.11) Active confirmed 231064964 Problem Generalized abdominal pain (R10.84) Active confirmed 888344505 Problem Fatty liver (K76.0) Active confirmed 276873261 Problem Elevated lipase (R74.8) Active confirmed 159928016 Problem RUQ pain (R10.11) Active confirmed 988401091 Problem Right sided abdominal pain (R10.9) Active confirmed 886618486 VITAL SIGNS Temperature 97.5 degrees Fahrenheit 01/16/2024 Blood pressure diastolic 00 mm Hg 01/16/2024 Height 65 in 01/16/2024 Blood pressure systolic 000 mm Hg 01/16/2024 Weight 165 lb 2 oz lbs 01/16/2024 BMI 27.48 kg/m2 01/16/2024 Encounters Encounter Location Date Provider Diagnosis [facility] [address] [place] [address] 01/16/2024 Julien Jordan Jr Right upper quadrant pain R10.11 and Fatty liver K76.0 [facility] [address] [place] [address] 01/24/2024 Julien Jordan Jr [facility] [address] [place] [address] 02/08/2024 Julien Jordan Jr [facility] [address] [place] [address] 02/14/2024 Julien Jordan Jr [facility] [address] [place] [address] 02/19/2024 Julien Jordan Jr Right sided abdominal pain R10.9 [facility] [address] [place] [address] 03/03/2024 Julien Jordan Jr [facility] [address] [place] [address] 03/06/2024 Julien Jordan Jr ASSESSMENTS Encounter Date Diagnosis Assessment Notes Treatment Notes Treatment Clinical Notes 01/16/2024 Right upper quadrant pain (ICD-10 - R10.11) Gas - flatulence material was printed 01/16/2024 Fatty liver (ICD-10 - K76.0) 02/19/2024 Right sided abdominal pain (ICD-10 - R10.9) PLAN OF TREATMENT Pending Test Test Name Order Date BUN 02/08/2023 BUN 02/19/2024 CREATININE 02/08/2023 CREATININE 02/19/2024 LIVER PROFILE 01/15/2023 LIVER PROFILE 10/11/2020 LIVER PROFILE 03/19/2020 LIVER PROFILE 01/16/2024 LIVER PROFILE 02/19/2024 LIPASE 01/15/2023 LIPASE 10/11/2020 LIPASE 03/19/2020 LIPASE 01/16/2024 LIPASE 02/19/2024 CBC w DIFF 10/11/2020 CBC w/o DIFF 01/15/2023 CBC w/o DIFF 03/19/2020 CBC w/o DIFF 01/16/2024 CBC w/o DIFF 02/19/2024 CT ABD & PELVIS WITH CONTRAST 02/19/2024 CT ABD & PELVIS WITH CONTRAST 02/07/2023 US ABD 01/16/2024 US ABD 10/11/2020 HIDA SCAN GB WITH CCK 02/27/2022 Liver Fibrosis Pnl 01/15/2023 Future Test Test Name Order Date UPPER GI ENDOSCOPY 03/19/2020 COLONOSCOPY 03/19/2020 Next Appt Details Provider Name:Julien Que lee Jr, 01/14/2025 10:20:00 AM, [address] [place] [address], [address], [place], [address], Insurance Providers Payer Name Payer Address Payer Phone Subscriber Number Group Number Insured Name Patient Relationship to Insured Coverage Start Date Coverage End Date [facility] [address] [address] [place] [address] [id number] JOAN VIVEROS Self - patient is the insured 0 MEDICAL (GENERAL) HISTORY Medical History History ICD Code Erosive gastritis, EGD 03/21, omeprazole x8 weeks, no BE or HP. Colonoscopy 03/21, tubular adenoma, five -year followup 03/26. Hypertension Included cholesterol Surgical History Surgery Date(Month/Year) right shoulder arthroplasty 1985
--- OUTSIDE RECORDS SUMMARY | 2024-03-11 17:58 | XMS_ITS | Continuity of Care Document ---
Author Organization [facility] [address] [place] [address] Phone [phone] Care Team Providers Care Athletics Teacher Name Role Phone Anaid Chakraborty Care Team Information Subway Car Repairer [phone] Problems Active Problems Provider Date Hypercholesterolemia Shahid Acuña M.D. Ons et: 05/17/2022 Essential hypertension Shahid Acuña M.D. O nset: 05/17/2022 Hyperlipidemia Shahid Acuña M.D. Onset: 0 05/17/2022 Social History Type Date Description Comments Sex Unknown Tobacco Use Start: Unknown Never Smoked Cigarettes ETOH Use Rarely consumes alcohol Allergies and adverse reactions Description No Known Drug Allergies Medications Active Medications SIG Qnty Indications Ordering Provider Date Amlodipine Gakuhlhv1wt Tablets Take 1 Tablet By Mouth Every Day Eric Saavedra MD Carvedilol3.125mg Tablets Take 1 Tablet By Mouth Twice A Day Must Take With Meal Food Eric Saavedra MD Atorvastatin Qwiwvsn60ye Tablets Take 1 Tablet By Mouth Everyday AT Bedtime Eric Saavedra MD [id number] Tablets Take One Tablet By Mouth Every Day Eric Saavedra MD Vital Signs Date Vital Result Comment 05/17/2022 9:11am BP Systolic 140 mmHg BP Diastolic 90 mmHg Heart Rate 72 /min Height 64 inches 5'4 Weight 174.00 lb BMI (Body Mass Index) 29.9 kg/m2 Results Test Acquired Date Facility Test Result H/L Range N ote Laboratory test finding 05/17/2022 [facility] Reference Lab Free T4 1.03 ng/dL (0.70-1.8 0) TSH 2.00 uIU/mL (0.4-4.2) Prolactin 8.4 NG/ML (4.8-23.3 ) Testosterone, Total 24 1 Dhea Sulfate 139.0 g /dL (9-246) FSH 92.1 MIU/ML 2 LH 56.6 MIU/ML 3 1 Unit: ng/dL (NOTE) This test was developed and its performance characteristics determined by [facility]. It has not been cleared or approved by the Food and Drug Administration. Reference Range: Adult Females Premenopausal 10 - 55 Postmenopausal 7 - 40 Test performed by [email or web address], [address] [place] [address] Reference Range: Follicular: 3.5-12.5 mIU/mL Ovulation: 4.7-21.5 mIU/mL Luteal: 1.7-7.7 mIU/mL Postmenopausal: 25.8-134.8 mIU/mL 3 Reference Range: Follicular: 2.4-12.6 mIU/mL Ovulation: 14.0-95.6 mIU/mL Luteal: 1.0-11.4 mIU/mL Postmenopausal: 7.7-58.5 mIU/mL Medical Devices Description No Information Available Encounters Type Date Location Provider Dx Diagnosis Office Visit 05/17/2022 9:30a Main Office Shahid Acuña M.D. L65.9 Nonscarring hair loss, unspecified Assessments Date Code Description Provider 05/17/2022 L65.9 Nonscarring hair loss, unspe cified Shahid Acuña M.D. Plan of Treatment No Information Available Functional Status Description No Information Available Mental Status Description No Information Available Referrals Description No Information Available
--- OUTSIDE RECORDS SUMMARY | 2024-03-11 17:58 | XMS_ITS ---
Author Organization [facility] Address [address] [place] [address] Care Team Providers Care Baggagemaster Name Role Phone JHONY DELGADO Primary Care Provider Natty Jordan Jr, Julien Payne REASON FOR VISIT labs and CT scan Encounters Encounter Location Date Provider Diagnosis [facility] [address] [facility] [address] [place] [address] 03/06/2024 Julien Jordan Jr PLAN OF TREATMENT Next Appt Details Provider Name:Julien lee Jr, 01/14/2025 10:20:00 AM, [address], [address], [place], [address],
--- OUTSIDE RECORDS SUMMARY | 2024-03-11 17:58 | XMS_ITS ---
Author Organization [facility] Address [address] [place] [address] Care Team Providers Care Data Analytics Architect Name Role Phone JHONY DELGADO Primary Care Provider Julien Johnson Jr REASON FOR VISIT abd pain MEDICATIONS Medication SIG (Take, Route, Fr equency, Duration) Notes Start Date End Date Status Dicyclomine HCl 20 MG 1 tablet Orally 2- 4 times a day 02/20/2024 Active PROBLEMS Problem Type ICD Code Onset Dates Problem Status W/U Status Risk SNOMED Code Notes Problem Right sided abdominal pain (R10.9) Active confirmed 803376354 Encounters Encounter Location Date Provider Diagnosis [facility] [address] [place] [address] 02/19/2024 Julien Jordan Jr Right sided abdominal pain R10.9 ASSESSMENTS Encounter Date Diagnosis Assessment Notes Treatment Notes Treatment Clinical Notes 02/19/2024 Right sided abdominal pain (ICD-10 - R10.9) PLAN OF TREATMENT Medication Medication Name Sig Start Date Stop Date Notes Dicyclomine HCl 20 MG 1 tablet Orally 2-4 times a day 02/01 Pending Test Test Name Order Date BUN 02/19/2024 CREATININE 02/19/2024 LIVER PROFILE 02/19/2024 LIPASE 02/19/2024 CBC w/o DIFF 02/19/2024 CT ABD & PELVIS WITH CONTRAST 02/19/2024 Next Appt Details Provider Name:Julien lee Jr, 01/14/2025 10:20:00 AM, [address], [address], [place], [address],
== END 2024-03-05 11:05 | disposition home or self-care (01) ==
LOC: HO.CT 11:04
PROVIDERS: Visit Provider Internal Medicine Gastroenterology
DX: R10.11 Right upper quadrant pain (principal); K76.0 Fatty (change of) liver, not elsewhere classified
CPT/HCPCS: 36415; 74177; 80076; 83690; 85027; Q9967

== ENCOUNTER 2024-04-03 09:06 | Outpatient (REF) | payer MEDICARE, SELFPAY ==
--- NOTE | ~2024-04-03 | US_ITS ---
CLINICAL HISTORY: CHEST PAIN,SPECIFY ILIAC ARTERY US Abdomen (AAA) Comparison: None Findings: Aorta proximal 2.3 x 2.1 cm. Aorta mid 1.7 x 1.6 cm. Aorta distal 2.0 x 2.0 cm. Right common iliac artery 1.1 x 1.0 cm. Left common iliac artery 1.1 x 1.1 cm. IMPRESSION: 1. No abdominal aortic aneurysm. This document has been electronically signed by: Ismael Hill MD on 04/05/2024 07:34:15
--- OUTSIDE RECORDS SUMMARY | 2024-04-03 09:13 | XMS_ITS ---
Author Organization [facility] Address [address] [place] [address] Care Team Providers Care Records And Tape Recordings Engineer Name Role Phone JHONY DELGADO Primary Care Provider Julien Johnson Jr [phone] REASON FOR VISIT abd pain MEDICATIONS Medication SIG (Take, Route, Fr equency, Duration) Notes Start Date End Date Status Dicyclomine HCl 20 MG 1 tablet Orally 2- 4 times a day 02/20/2024 Active PROBLEMS Problem Type ICD Code Onset Dates Problem Status W/U Status Risk SNOMED Code Notes Problem Right sided abdominal pain (R10.9) Active confirmed [id number] Encounters Encounter Location Date Provider Diagnosis [facility] [address] [place] [address] 02/19/2024 Julien Jordan Jr Right sided abdominal [...] 10:20:00 AM, [address], [address], [place], [address],
--- OUTSIDE RECORDS SUMMARY | 2024-04-03 09:13 | XMS_ITS ---
Author Organization [facility] Address [address] [place] [address] Care Team Providers Care Flight Teacher Name Role Phone GARRETT DELGADOD Primary Care Provider Natty Jordan Jr, Julien Payne [phone] REASON FOR VISIT labs Encounters Encounter Location Date Provider Diagnosis [facility] [address] [place] [address] 03/03/2024 Julien Jordan Jr PLAN OF TREATMENT Next Appt Details Provider Name:Julien lee Jr, 01/14/2025 10:20:00 AM, [address], [address], [place], [address],
--- OUTSIDE RECORDS SUMMARY | 2024-04-03 09:13 | XMS_ITS ---
Author Organization [facility] Address [address] [place] [address] Care Team Providers Care Mimeographer Name Role Phone JHONY DELGADO Primary Care Provider Natty Jordan Jr, Julien Payne [phone] REASON FOR VISIT labs and CT scan Encounters Encounter Location Date Provider Diagnosis [facility] [address] [facility] [address] [place] [address] 03/06/2024 Julien Jordan Jr PLAN OF TREATMENT Next Appt Details Provider Name:Julien lee Jr, 01/14/2025 10:20:00 AM, [address], [address], [place], [address],
--- OUTSIDE RECORDS SUMMARY | 2024-04-03 09:14 | XMS_ITS | Patient Health Record ---
Author Organization [facility] Address [address] [place] [address] Care Team Providers Care Risk Management Specialist Name Role Phone JHONY DELGADO Primary Care Provider Julien Johnson Jr ALLERGIES No Known Allergies RESULTS Component Value Reference Range Notes Complete Blood Count no Diff Reviewed date:01/24/2024 07:43:21 AM Interpretation: Performing Lab:[facility], [address] [place] [phone] Notes/Report: White Blood Count 8.9 4.8-10.8 X10*3/uL [...] Panel Reviewed date:01/24/2024 07:43:35 AM Interpretation: Performing Lab:[facility], [address] [place] [phone] Notes/Report: Bilirubin Total 0.5 0.0-1.0 mg/dL Bilirubin Direct 0.2 0.0-0.5 mg/dL Aspartate Amino Transferase 26 5-31 U/L Alanine Aminotransferase 21 0-31 U/L Total Protein 7.0 6.5-8.0 g/dL Albumin Level 3.8 3.5-5.0 g/dL Alkaline Phosphatase 87 39-117 U/L Lipase Reviewed date:01/24/2024 07:43:47 AM Interpretation: Performing Lab:[facility], [address] [place] [phone] Notes/Report: Lipase 43 8-78 U/L US abdomen complete Reviewed date:02/14/2024 08:35:33 AM Interpretation: Performing Lab: Notes/Report: [address] [address] Ultrasound Report Signed Patient: Joan Viveros MR#: [id number] 4 : 1955 Acct:[id number] Age/Sex: 68 / F ADM Date: 01/23/24 Loc: HO.US Attending Dr: Julien Jordan MD Ordering Physician: Julien Jordan MD Date of Service: 01/23/24 Procedure(s): US abdomen complete Accession Number(s): [id number] cc: Julien Jordan MD; Leandro Delgado MD [...] by: Agusto Egan MD 02/13/2024 10:39 AM [facility] Dictated By: Agusto Egan MD Signed By: <Electronically signed by Agusto Egan MD in OV> 02/13/24 1039 DD/ TD/TT: 01/23/24 0952 Finisher Hot Strip: Blood Urea Nitrogen Reviewed date:03/03/2024 04:20:51 PM Interpretation: Performing Lab:[address] [address] Notes/Report: Blood Urea Nitrogen 14 9-16 mg/dL Creatinine Reviewed date:03/03/2024 04:20:45 PM Interpretation: Performing Lab:[facility], [address] [place] [phone] Notes/Report: Creatinine 1.41 0.5-1.4 mg/dL Estimated Glomerular Filt Rate 37 Chronic Kidney Disease: Estimated GFR < 60 mL/min/1.73m2 Severe Kidney Disease: Estimated GFR < 15 mL/min/1.73m2 Complete Blood Count no Diff Reviewed date:03/06/2024 09:17:57 AM Interpretation: Performing Lab:[facility], [address] [place] [address] Notes/Report: White Blood Count 9.9 4.8-10.8 X10*3/uL [...] Panel Reviewed date:03/06/2024 09:17:50 AM Interpretation: Performing Lab:[address] [address] Notes/Report: Bilirubin Total 0.3 0.0-1.0 mg/dL Bilirubin Direct 0.1 0.0-0.5 mg/dL Aspartate Amino Transferase 28 5-31 U/L Alanine Aminotransferase 22 0-31 U/L Total Protein 6.9 6.5-8.0 g/dL Albumin Level 3.8 3.5-5.0 g/dL Alkaline Phosphatase 80 39-117 U/L Lipase Reviewed date:03/06/2024 09:17:44 AM Interpretation: Performing Lab:[address] [address] Notes/Report: Lipase 35 8-78 U/L CT abdomen pelvis w con Reviewed date:03/06/2024 09:18:01 AM Interpretation: Performing Lab: Notes/Report: [address] [address] [address] Scan Report Signed Patient: Joan Viveros MR#: [id number] 4 : 1955 Acct:[id number] Age/Sex: 68 / F ADM Date: 03/05/24 Loc: HO.CT Attending Dr: Julien Jordan MD Ordering Physician: Julien Jordan MD Date of Service: 03/05/24 Procedure(s): CT abdomen pelvis w IV con Accession Number(s): [id number] cc: Julien Jordan MD EXAMINATION: CT ABDOMEN [...] OV> 03/05/248 DD/ 1305 TD/TT: 03/05/24 1314 Finisher Hot Strip: REASON FOR REFERRAL No Information MEDICATIONS Medication [...] Code Notes Problem Bloating (R14.0) Active confirmed 43260 9008 Problem Weight loss (R63.4) Active confirmed 21514394 Problem Right upper quadrant pain (R10.11) Active confirmed 663240372 Problem Generalized abdominal pain (R10.84) Active confirmed 050906596 Problem Fatty liver (K76.0) Active confirmed 829982840 Problem Elevated lipase (R74.8) Active confirmed 529793415 Problem RUQ pain (R10.11) Active confirmed 667061600 Problem Right sided abdominal pain (R10.9) Active confirmed 770899069 VITAL SIGNS Temperature 97.5 degrees Fahrenheit 01/16/2024 Blood pressure diastolic 00 mm Hg 01/16/2024 Height 65 in 01/16/2024 Blood pressure systolic 000 mm Hg 01/16/2024 Weight 165 lb 2 oz lbs 01/16/2024 BMI 27.48 kg/m2 01/16/2024 Encounters Encounter Location Date Provider Diagnosis [facility] [address] [place] [address] 01/16/2024 Julien Jordan Jr Right upper quadrant pain R10.11 and Fatty liver K76.0 [facility] [address] [place] [address] 01/24/2024 Julien Jordan Jr [facility] [address] [place] [address] 02/08/2024 Julien Jordan Jr [facility] [address] [place] [address] 02/14/2024 Julien Jordan Jr [facility] [address] [place] [address] 02/19/2024 Julien Jordan Jr Right sided abdominal pain R10.9 [facility] [address] [place] [address] 03/03/2024 Julien Jordan Jr [facility] [address] [place] [address] 03/06/2024 Julien Jordan Jr ASSESSMENTS Encounter Date [...] Name:Julien Que lee Jr, 01/14/2025 10:20:00 AM, [address] [place] [address], [address], [place], [address], Insurance Providers Payer Name Payer Address Payer Phone Subscriber Number Group Number Insured Name Patient Relationship to Insured Coverage Start Date Coverage End Date [facility] [address] [address] [place] [address] [id number] JOAN VIVEROS Self - patient is the insured 0 MEDICAL (GENERAL) HISTORY Medical History History ICD Code Erosive gastritis, EGD 03/21, omeprazole x8 weeks, no BE or HP. Colonoscopy 03/21, tubular adenoma, five -year followup 03/26. Hypertension Included cholesterol Surgical History Surgery Date(Month/Year) right shoulder arthroplasty 1985
--- OUTSIDE RECORDS SUMMARY | 2024-04-03 09:14 | XMS_ITS | Continuity of Care Document ---
Author Organization [facility] [address] [facility] [facility] [address] [place] [address] Phone [phone] Care Team Providers Care Net Developer With [employer] Name Role Phone Anaid Chakraborty Care Team Information Customer Care Professional [phone] Problems Active Problems Provider Date Hypercholesterolemia Shahid [...] SIG Qnty Indications Ordering Provider Date Amlodipine Tltrozcl2at Tablets Take 1 Tablet By Mouth Every Day Eric Saavedra MD Carvedilol3.125mg Tablets Take 1 Tablet By Mouth Twice A Day Must Take With Meal Food Eric Saavedra MD Atorvastatin Herbnox70kh Tablets Take 1 Tablet By Mouth Everyday AT Bedtime Eric Saavedra MD Nduzvlyex18td Tablets Take One Tablet By Mouth Every Day Eric Saavedra MD Vital Signs Date Vital Result Comment 05/17/2022 9:11am BP Systolic 140 mmHg BP Diastolic 90 mmHg Heart Rate 72 /min Height 64 inches 5'4 Weight 174.00 lb BMI (Body Mass Index) 29.9 kg/m2 Results Test Acquired Date Facility Test Result H/L Range N ote Laboratory test finding 05/17/2022 [facility] Free T4 1.03 ng/dL (0.70-1.8 [...] Postmenopausal 7 - 40 Test performed by [facility] [address] [place] [address] 2 Reference Range: Follicular: 3.5-12.5 mIU/mL Ovulation: [...]
== END 2024-04-03 09:07 | disposition home or self-care (01) ==
LOC: HO.US 09:06
PROVIDERS: PCP Hospitalist; Visit Provider Internal Medicine Cardiovascular Disease
DX: R07.9 Chest pain, unspecified (principal)
CPT/HCPCS: 76706

== ENCOUNTER → 2024-04-03 09:08 | Outpatient (BNV) | payer MEDICARE, SELFPAY | PROVIDERS: PCP Hospitalist; Visit Provider Specialist | DX: I71.40 Abdominal aortic aneurysm, without rupture, unspecified (principal) | CPT/HCPCS: 76706 ==

== ENCOUNTER 2024-04-23 10:04 | Outpatient (REF) | payer MEDICARE, SELFPAY ==
--- NOTE | ~2024-04-23 | MM_ITS ---
EXAMINATION: DXA BONE DENSITY AXIAL HISTORY: Estrogen deficiency TECHNIQUE: ZAP Dual energy absorptiometry (DEXA) of the lumbar spine, total left hip, and femoral neck was performed. COMPARISON: Comparison is made with the prior examination dated 12/29/2021. FINDINGS: The bone mineral density of the lumbar spine is 1.333 with a T-score of 1.4, and a Z-score of 2.6. This represents a BMD change of -0.9% compared to the prior exam. This is not statistically significant. The bone mineral density of the left total hip is 1.052 with a T-score of 0.3, and a Z-score of 1.5. This represents BMD change of -1.9% compared to the prior exam. This is not statistically significant. The bone mineral density of the left femoral neck is 0.927 with a T-score of -0.8, and a Z-score of 0.6. This represents BMD change of -3.1% compared to the prior exam. MM/XR DEXA axial skeleton IMPRESSION: Based on bone mineral density, and according to World Health Organization (WHO) criteria, the diagnosis is consistent with normal bone mineral density. All bone density values are in grams per centimeter squared (g/cm2). Statistically, 68% of repeat scans fall within 1 SD (+/- 0.010 g/cm2 for AP spine L1-L4) and 1 SD (+/- 0.012 g/cm2 for femur total) FRAX is a trademark of the [employer] [place] [employer] Metabolic Bone Disease, a World Health Organization (WHO) Collaborating Center. Electronically signed by: Will Garcia MD 04/24/2024 07:13 AM [facility]
--- OUTSIDE RECORDS SUMMARY | 2024-04-23 11:03 | XMS_ITS ---
Author Organization [facility] Address [address] [place] [address] Care Team Providers Care Manager Unit Name Role Phone JHONY DELGADO Primary Care Provider REASON FOR VISIT Fatty liver Encounters Encounter Location Date Provider Diagnosis [facility] [address] [place] [address] 02/04/2024 BOOKEREAMON DELGADO Other obesity due to excess calories E66.09 and Fatty (change of) liver, not elsewhere classified K76.0 Assessments Encounter Date Diagnosis (ICD Code) Assessment Notes Treatment Notes Treatment Clinical Notes Section Notes 02/04/2024 Other obesity due to excess calories (ICD-10 - E66.09) 02/04/2024 Fatty (change of) liver, not elsewhere classified (ICD-10 - K76.0) Plan Of Treatment Pending Test Test Name Order Date Albumin/Creatinine Ratio,Urine-[id number] TSH+Free [id number] 02/04/2024 Lipid Panel-[id number] 02/04/2024 Comp. Metabolic Panel [id number] 2023 Progress Notes * COLE VIVEROS MDOB:[birth year] (68 yo F)Acc No.[id number]:02/04/2024 Patient:?COLE VIVEROS :1955???Age:68 Y???Sex:Female Address:[address], [address] [place], [place] [address] Subjective: * Chief Complaints: * ???Fatty liver * Medical History:? * Surgical History:? * Hospitalization/Major Diagno stic Procedure:? * Medications:? Objective: * Vitals:? * Physical Examination:? Assessment: * Assessment: 1.?Other obesity due to exce ss calories - E66.09???2.?Fatty (change of) liver, not elsewhere classified - K76.0??? Plan: * Treatment: 2.?Fatty (change of) liver, not elsewhere classified?LAB: Albumin/Creatinine Ratio,Urine-[id number] ?LAB: Lipid Panel-[id number] ?LAB: Comp. Metabolic Panel [id number] * Procedure Codes:? * true * Date:? Generated for Filemon quesada/Tatyana/Deboraitting on:?04/23/2024 11:03 AM EST
--- OUTSIDE RECORDS SUMMARY | 2024-04-23 11:03 | XMS_ITS | Continuity of Care Document ---
Author Organization [facility] [address] [place] [address] Phone [phone] Care Team Providers Care Sales Agent Trading Stamps Name Role Phone Anaid Chakraborty Care Team Information Rocket Assembly Operator [phone] Problems Active Problems Provider Date Hypercholesterolemia Shahid [...] SIG Qnty Indications Ordering Provider Date Amlodipine Kmlfffvl5gb Tablets Take 1 Tablet By Mouth Every Day Eric Saavedra MD Carvedilol3.125mg Tablets Take 1 Tablet By Mouth Twice A Day Must Take With Meal Food Eric Saavedra MD Atorvastatin Zjarqhc91ub Tablets Take 1 Tablet By Mouth Everyday AT Bedtime Eric Saavedra MD Pmqavqsew77ka Tablets Take One Tablet By Mouth Every Day Eric Saavedra MD Vital Signs Date Vital Result Comment 05/17/2022 9:11am BP Systolic 140 mmHg BP Diastolic 90 mmHg Heart Rate 72 /min Height 64 inches 5'4 Weight 174.00 lb BMI (Body Mass Index) 29.9 kg/m2 Results Test Acquired Date Facility Test Result H/L Range N ote Laboratory test finding 05/17/2022 [facility] Free T4 1.03 ng/dL [...] Postmenopausal 7 - 40 Test performed by [facility], [address] [place] [address] Reference Range: Follicular: 3.5-12.5 mIU/mL Ovulation: [...]
--- OUTSIDE RECORDS SUMMARY | 2024-04-23 11:03 | XMS_ITS | Clinical Summary ---
Author Organization [facility] Address [address] [place] [address] Care Team Providers Care Furniture Polisher Name Role Phone Daxa Harrison MD Primary Care Provider [phone] Social History Tobacco Use Types Packs/Day Years Used Date Smoking Tobacco: Never Assessed Sex and Gender Information Value Date Recorded Sex Assigned at Not on file Gender Identity Not on file Sexual Orientation Not on file Plan of Treatment Health Maintenance Due Date Last Done Comments Hepatitis C Virus Screening 1955 DTaP/Tdap/Td Vaccines (1 - Tdap) 1973 Pneumococcal Vaccines 50+ (1 of 1 - PCV) 2004 Zoster (Shingles) Vaccine (1 of 2) 2004 COVID-19 Vaccine (1 - 2023- season) 2023 RSV Vaccine 60 years and older and Patients (1 - 1-dose 75+ series) 2029 Mammogram Discontinued 04/09/2019, 05/28/2018 Hepatitis B Vaccines Aged Out No long er eligible based on patient's age to complete this topic Procedures Procedure Name Priority Date/Time Associated Diagnosis Comments MM MAMMOGRAM DIAGNOSTIC-BILATERA L Routine 04/09/2019 1:40 PM EST Lump or mass in breast from Last 3 Months or Most Recently Relevant to Health Maintenance Results * MM Mammogram diagnostic-Bilateral (04/09/2019 1:40 PM EST) Anatomical Region Laterality Modality Breast Bilateral Mammography 04/09/2019 1:40 PM EST Impressions 04/09/2019 2:02 PM EST Near complete resolution of a complicated cyst behind the left nipple. No new suspicious finding ASSESSMENT: BI-RADS 2 - Benign findings RECOMMENDATIONS: Back on Schedule. Findings and recommendations discussed with the patient Written and verbal communication of these findings and recommendations was given to the patient at the time of the examination. BREAST COMPOSITION Breast composition descriptors are based on the standard practice guidelines of the ACR BI-RADS atlas. A reference guide is provided below: a. The breast are almost entirely fatty (previously <25% dense). b. There are scattered areas of fibroglandular density (previously 25-50% dense). c. The breasts are heterogeneously dense which may obscure small masses (previously 51-75% dense). d. The breasts are extremely dense which lowers the sensitivity of mammography (previously >75% dense). Patients in categories c and d may quality for supplementary screening exams such as screening breast ultrasound. Narrative 04/09/2019 2:02 PM EST EXAMINATION: MM DIGITAL DIAGNOSTIC MAMMOGRAM, BILATERAL US BREAST, LEFT CLINICAL INFORMATION: Short interval follow-up. Probably benign left breast mass. COMPARISON: 06/19/18, 05/28/18, 06/25/14, 02/05/13 TECHNIQUE: Standard views were obtained of the Bilateral breast(s). Targeted sonographic evaluation of the left breast was performed using a high frequency linear transducer. FINDINGS: There are scattered areas of fibroglandular density. (ACR BI-RADS breast composition Category b)*. Right breast: No suspicious mass. No architectural distortion. No suspicious calcification Left breast: The previously demonstrated mass in the left retroareolar region has significantly decreased in size. No new suspicious left breast finding. CAD was utilized for this examination and, after further review, no additional findings are identified. ULTRASOUND FINDINGS: There is no longer any measurable mass behind the left nipple. There is an approximately 4 mm area of slightly altered echotexture which likely represents the residual from the previous complicated cyst No new suspicious ultrasound finding Daxa Harrison MD IMG MAMMOGRAPHY ORDE KELLY from Last 3 Months or Most Recently Relevant to Health Maintenance Care Teams Furniture Polisher Relationship Specialty Start Date End Date Daxa Harrison MD PCP - General 05/28/18
--- OUTSIDE RECORDS SUMMARY | 2024-04-23 11:03 | XMS_ITS | Clinical Summary ---
Author Organization [facility] Address [address] [place] [address] Care Team Providers Care Hospital Administrative Assistant Name Role Phone Boo Ochoa MD Primary Care Provider [phone] Medical History Medical History Date Comments Cancer (CMS/HCC) DX:Cancer (HCC) ;COMMENT:AGE 24 Breast discharge DX:Breast disch arge;COMMENT:RT MILKY Arthritis DX:Arthritis Family History Medical History Relation Name Comments Cancer Father ESOPHAGUS CA Diabetes Mother Breast cancer Mother's Sister 1 Breast cancer Mother's Sister 2 Relation Name Status Comments Father Mother Mother's Sister 1 Mother's Sister 2 Social History Tobacco Use Types Packs/Day Years Used Date Smoking Tobacco: Former Cigarettes Q uit: 05/02/1988 Smokeless Tobacco: Never Alcohol Use Standard Drinks/Week Comments Yes 0 (1 standard drink = 0.6 oz pur e alcohol) Sex and Gender Information Value Date Recorded Sex Assigned at Not on file Gender Identity Not on file Sexual Orientation Not on file Obstetrics History Plan of Treatment Health Maintenance Due Date Last Done Comments Breast Cancer Screening 1955 DTaP,Tdap,and Td Vaccines (1 - Tdap) 1973 Zoster Vaccines (1 of 2) 2004 Pneumococcal Vaccine: 65+ Ye ars (1 of 1 - PCV) 11/04/2019 COVID-19 Vaccine ( - 2023-2 5 season) 2023 Influenza Vaccine (#1) 2023 RSV Immunization Patients 60 + Years Old (1 - 1-dose 75+ series) 2029 HIB Vaccines Aged Out No longer eligi ble based on patient's age to complete this topic HPV Vaccines Aged Out No longer eligi ble based on patient's age to complete this topic Hepatitis A Vaccines Aged Out No long er eligible based on patient's age to complete this topic Hepatitis B Vaccines Aged Out No long er eligible based on patient's age to complete this topic IPV Vaccines Aged Out No longer eligi ble based on patient's age to complete this topic MMR Vaccines Aged Out No longer eligi ble based on patient's age to complete this topic Meningococcal ACWY Vaccine Aged Out N o longer eligible based on patient's age to complete this topic RSV Immunization Patients Un roddy 20 months Aged Out No longer eligible b ased on patient's age to complete this topic Varicella Vaccines Aged Out No longer eligible based on patient's age to complete this topic Care Teams Hospital Administrative Assistant Relationship Specialty Start Date End Date Boo Ochoa MD [address] [place] [address] PCP - General Internal Medicine 08/27/19
--- OUTSIDE RECORDS SUMMARY | 2024-04-23 11:03 | XMS_ITS | Clinical Summary ---
Author Organization [facility] Address [address] [place] [address] Care Team Providers Care General Service Officer Name Role Phone Boo Ochoa MD Primary Care Provider [phone] Allergies No known active allergies Medications Medication Sig Dispensed Refills Start Date End Date Status clarithromycin (BIAXIN) 500 MG tabletIndications: H. pylori infection Take 1 tablet (500 mg total) by mouth 2 (two) times a day. 28 tablet 0 10/31/2018 Active Additional Information Patient not taking.Reason: Other, Reported on 12/19/2018 omeprazole (PriLOSEC) 20 MG capsuleIndications :H. pylori infection Take 1 capsule (20 mg total) by mouth 2 (two) times a day. 60 capsule 1 10/31/2018 Active Additional Information Patient not taking.Reason: Other, Reported on 12/19/2018 magnesium hydroxide (MILK OF MAGNESIA) 400 MG/5ML suspension Take 45 mL by mouth daily as needed for constipation. 0 Active Active Problems Problem Noted Date Diagnosed Date H. pylori infection 10/31/2018 Elevated fasting glucose 10/17/2018 Bloody stool 09/26/2018 Loss of weight 09/26/2018 Family History Medical History Relation Name Comments Cancer Father ESOPHAGUS CA Breast cancer Maternal Aunt 1 Breast cancer Maternal Aunt 2 Diabetes Mother Relation Name Status Comments Father Maternal Aunt 1 Maternal Aunt 2 Mother Social History Tobacco Use Types Packs/Day Years Used Date Smoking Tobacco: Former Cigarettes 10 Q uit: 05/02/1988 Smokeless Tobacco: Never Alcohol Use Standard Drinks/Week Comments Yes 0 (1 standard drink = 0.6 oz pur e alcohol) 2 cans/per year Sex and Gender Information Value Date Recorded Sex Assigned at Not on file Gender Identity Not on file Sexual Orientation Not on file Last Filed Vital Signs Vital Sign Reading Time Taken Comments Blood Pressure 162/88 08/07/2019 1:01 PM EDT Pulse 94 08/07/2019 1:01 PM EDT Temperature 36.7 ??C (98.1 ??F) 08/07/2019 1:01 PM ED T Respiratory Rate 18 09/26/2018 1:21 PM EDT Oxygen Saturation 100% 08/07/2019 1:01 PM EDT Inhaled Oxygen Concentration - - Weight 86.2 kg (190 lb) 08/27/2019 9:16 AM EDT Height 162.6 cm (5' 4 ) 08/27/2019 9:16 AM EDT Body Mass Index 32.61 08/27/2019 9:16 AM EDT Plan of Treatment Health Maintenance Due Date Last Done Comments Hepatitis C Screening 1955 COVID-19 Vaccine (#1) 05[birth year]06/1955 Depression Screening 1966 BMI Counseling 1972 Preventative Health Evaluation 1972 DTap / Tdap / Td (1 - Tdap) 1973 Colon Cancer Screening (Colonoscopy) 11/04/1999 Shingrix-Zoster Vaccine (1 of 2) 2004 Breast Cancer Screening (Mammogram) 06/25/2016 06/25/2014 Fall Risk Assessment 11/04/2019 Osteoporosis Screening (DEXA Scan) 11/04/2019 Pneumococcal Vaccine (1 of 1 - PCV) 11/04/2019 Influenza Vaccine (#1) 2023 RSV Adult > 60+ Yrs or Pregn ant (1 - 1-dose 75+ series) 2029 Hepatitis B Vaccines Aged Out No long er eligible based on patient's age to complete this topic RSV Ped < 20 months Aged Out No longe r eligible based on patient's age to complete this topic Care Teams General Service Officer Relationship Specialty Start Date End Date Boo Ochoa MD [address] [place] [address] PCP - General Internal Medicine 08/27/19
--- OUTSIDE RECORDS SUMMARY | 2024-04-23 11:04 | XMS_ITS | Patient Health Record ---
Author Organization [facility] Address [address] [facility] [address] [place] [address] Care Team Providers Care Transitions Rn Care Coordinator Name Role Phone JHONY DELGADO Primary Care Provider Allergies Allergen (clinical drug ingredient) Drug/Non Drug Allergy documented on EMR Reaction Allergy Type Onset Date Status Substance with 0-xcybvpp-7-methylgluta ryl-coenzyme A reductase inhibitor mechanism of action (substance) Statins rash Drug Allergy Active Reason For Referral No Information Medications Medication SIG (Take, Route, Frequency, Duration) Notes Start Date End Date Status Ezetimibe 10 MG 1 tablet Orally Once a day Active amLODIPine Besylate 5 MG 1 tablet Orally Once a day Active Social History Tobacco Use: Social History Observation Description Date Details (start date - stop date) Never Smoker NA - NA Tobacco Use/Smoking Question Answer Notes Are you a nonsmoker Alcohol Screen (Audit-C) Question Answer Notes Did you have a drink containing alcohol in the p ast year? No Points 0 Interpretation Negative Problems Problem Type SNOMED Code ICD Code Onset Dates Problem Status W/U Status Risk Notes Problem Obesity due to excess calories (846141959) Other obesity due to excess calories (E66.09) Active confirmed Problem Mixed hyperlipidemia (229899444) Mixed hyperlipidemia (E78.2) Active confirmed Problem Fatty liver (368491711) Fatty (change of) liver, not elsewhere classified (K76.0) Active confirmed Problem Essential hypertension (54615582) Essential (primary) hypertension (I10) Active confirmed Vital Signs Heart Rate 81 /min 07/13/2023 Blood pressure diastolic 78 mm Hg 07/13/2023 Oximetry 98 % 07/13/2023 Height 5'3'' in 07/13/2023 Blood pressure systolic 118 mm Hg 07/13/2023 Weight 174.8 lbs 07/13/2023 BMI 30.96 kg/m2 07/13/2023 Encounters Encounter Location Date Provider Diagnosis [facility] [address] [place] [address] 07/13/2023 JHONY DELGADO Essential (primary) hypertension I10 ; Abdominal pain R10.9 and Mixed hyperlipidemia E78.2 [facility] [address] [place] [address] 06/05/[address] [place] [address] 07/30/[address] [place] [address] 01/24/2024 [facility] [address] [place] [address] 02/04/2024 JHONY DELGADO Other obesity due to excess calories E66.09 and Fatty (change of) liver, not elsewhere classified K76.0 Assessments Encounter Date Diagnosis (ICD Code) Assessment Notes Treatment Notes Treatment Clinical Notes Section Notes 07/13/2023 Essential (primary) hypertension (ICD-10 - I10) Mrs. Viveros is a 67-year-old with hypertension and hyperlipidemia here for follow up. She complains of right upper quadrant abdominal pain. She is seen to the GI consultants in the area and her workup is negative. She has a appointment at [place] in the next few weeks for same reason. Plan is as follows: Abdominal pain. Workup has been negative and she is seen Dr. Jordan and Dr. Ibarra and no positive findings. She has multiple studies including a HIDA scan, CT abdomen and pelvis, EGD, colonoscopy and everything is negative. She mostly complains of right-sided upper abdominal pain. There is no gallbladder pathology noticed on recent imaging. She has a bony notch on the right rib cage area where she complains of discomfort. She has upcoming appointment with GI at [place]. Hypertension. Blood pressure well controlled on current regimen. Continue amlodipine 5 MG once a day Hyperlipidemia. Continue Ezetimibe 10 MG once a day Class 1 Obesity. Advised dietary restrictions and regimental exercise. Goal is to lose 5-6 lbs a month. General health concerns discussed with patient. Scribe services used to formulate this note under HIPAA compliance and under [place] law mandated for scribe services. Patient aware of service. Verbal consent and written consent taken from the patient. Patient understands and verbalizes understanding of the scribes services and all questions answered regarding scribes services. Patient agrees to use of scribes services. 07/13/2023 Abdominal pain (ICD-10 - R10.9) Mrs. Viveros is a 67-year-old with hypertension and hyperlipidemia here for follow up. She complains of right upper quadrant abdominal pain. She is seen to the GI consultants in the area and her workup is negative. She has a appointment at [place] in the next few weeks for same reason. Plan is as follows: Abdominal pain. Workup has been negative and she is seen Dr. Jordan and Dr. Ibarra and no positive findings. She has multiple studies including a HIDA scan, CT abdomen and pelvis, EGD, colonoscopy and everything is negative. She mostly complains of right-sided upper abdominal pain. There is no gallbladder pathology noticed on recent imaging. She has a bony notch on the right rib cage area where she complains of discomfort. She has upcoming appointment with GI at [place]. Hypertension. Blood pressure well controlled on current regimen. Continue amlodipine 5 MG once a day Hyperlipidemia. Continue Ezetimibe 10 MG once a day Class 1 Obesity. Advised dietary restrictions and regimental exercise. Goal is to lose 5-6 lbs a month. General health concerns discussed with patient. Scribe services used to formulate this note under HIPAA compliance and under [place] law mandated for scribe services. Patient aware of service. Verbal consent and written consent taken from the patient. Patient understands and verbalizes understanding of the scribes services and all questions answered regarding scribes services. Patient agrees to use of scribes services. 02/04/2024 Other obesity due to excess calories (ICD-10 - E66.09) 07/13/2023 Mixed hyperlipidemia (ICD-10 - E78.2) Mrs. Viveros is a 67-year-old with hypertension and hyperlipidemia here for follow up. She complains of right upper quadrant abdominal pain. She is seen to the GI consultants in the area and her workup is negative. She has a appointment at [place] in the next few weeks for same reason. Plan is as follows: Abdominal pain. Workup has been negative and she is seen Dr. Jordan and Dr. Ibarra and no positive findings. She has multiple studies including a HIDA scan, CT abdomen and pelvis, EGD, colonoscopy and everything is negative. She mostly complains of right-sided upper abdominal pain. There is no gallbladder pathology noticed on recent imaging. She has a bony notch on the right rib cage area where she complains of discomfort. She has upcoming appointment with GI at [place]. Hypertension. Blood pressure well controlled on current regimen. Continue amlodipine 5 MG once a day Hyperlipidemia. Continue Ezetimibe 10 MG once a day Class 1 Obesity. Advised dietary restrictions and regimental exercise. Goal is to lose 5-6 lbs a month. General health concerns discussed with patient. Scribe services used to formulate this note under HIPAA compliance and under [place] law mandated for scribe services. Patient aware of service. Verbal consent and written consent taken from the patient. Patient understands and verbalizes understanding of the scribes services and all questions answered regarding scribes services. Patient agrees to use of scribes services. 02/04/2024 Fatty (change of) liver, not elsewhere classified (ICD-10 - K76.0) Plan Of Treatment Pending Test Test Name Order Date LIPID PANEL 03/05/2023 Albumin/Creatinine Ratio,Urine-[id number] TSH+Free [id number] 02/04/2024 Lipid Panel-[id number] 02/04/2024 Comp. Metabolic Panel [id number] 2023 Future Test Test Name Order Date 25OH VITAMIN D 01/31/2023 COMPREHENSIVE METABOLIC PANEL 01/31/2023 MICROALBUMIN, URINE 01/31/2023 TSH 01/31/2023 Insurance Providers Payer Name Payer Address Payer Phone Subscriber Number Group Number Insured Name Patient Relationship to Insured Coverage Start Date Coverage End Date [employer] [address] [address] [place] [address] [phone] [id number] COLE VIVEROS Self - patient is the insured Medical (General) History Medical History History ICD Code hypertension, benign hyperlipidemia Headaches Abdominal LUQ PAIN SEE Dr Jordan Surgical History Surgery Date(Month/Year) Tuboplasty
--- OUTSIDE RECORDS SUMMARY | 2024-04-23 11:04 | XMS_ITS ---
Author Organization [facility] Address [address] [place] [address] Care Team Providers Care Apprentice Architect Name Role Phone JHONY DELGADO Primary Care Provider Natty Jordan Jr, Julien Payne REASON FOR VISIT labs and CT scan Encounters Encounter Location Date Provider Diagnosis [facility] [address] [facility] [facility] [address] [place] [address] 03/06/2024 Julien Jordan Jr PLAN OF TREATMENT Next Appt Details Provider Name:Julien lee Jr, 01/14/2025 10:20:00 AM, [address], [address], [place], [address],
--- OUTSIDE RECORDS SUMMARY | 2024-04-23 11:04 | XMS_ITS ---
Author Organization [facility] Address [address] [facility] [address] [address] [place] [address] Care Team Providers Care Pulmonologist/Intensivist Name Role Phone JHONY DELGADO Primary Care Provider REASON FOR VISIT Medical record request Encounters Encounter Location Date Provider Diagnosis [facility] [address] [facility] [address] [place] [address] 01/24/2024 JHONY DELGADO Plan Of Treatment No Information Progress Notes * COLE VIVEROS MDOB:[birth year] (68 yo F)Acc No.[id number]:01/24/2024 Patient:?COLE VIVREOS :1955???Age:68 Y???Sex:Female Address:[address], [address] [place], [place], [place] [address] * true * Date:? Generated for Filemon quesada/Tatyana/eTransmitting on:?04/23/2024 11:03 AM EST
--- OUTSIDE RECORDS SUMMARY | 2024-04-23 11:04 | XMS_ITS ---
Author Organization [facility] Address [address] [place] [address] Care Team Providers Care General Matcher Name Role Phone JHONY DELGADO Primary Care Provider [phone] REASON FOR VISIT urgent lab order Encounters Encounter Location Date Provider Diagnosis [facility] [address] [place] [address] 07/30/2023 JHONY DELGADO Plan Of Treatment No Information Progress Notes * COLE VIVEROS MDOB:[birth year] (67 yo F)Acc No.[id number]:07/30/2023 Patient:?COLE VIVEROS :1955???Age:67 Y???Sex:Female Address:[address], [address] [place], [place] [address] * true * Date:? Generated for Filemon quesada/Tatyana/eTransmitting on:?04/23/2024 11:03 AM EST
--- OUTSIDE RECORDS SUMMARY | 2024-04-23 11:05 | XMS_ITS ---
Author Organization [facility] Address [address] [place] [address] Care Team Providers Care Anesthesia Resident Name Role Phone JHONY DELGADO Primary Care Provider Julien Johnson Jr [phone] REASON FOR VISIT abd pain MEDICATIONS Medication SIG (Take, Route, Fr equency, Duration) Notes Start Date End Date Status Dicyclomine HCl 20 MG 1 tablet Orally 2- 4 times a day 02/20/2024 Active PROBLEMS Problem Type ICD Code Onset Dates Problem Status W/U Status Risk SNOMED Code Notes Problem Right sided abdominal pain (R10.9) Active confirmed 557053215 Encounters Encounter Location Date Provider Diagnosis [facility] [address] [place] [address] 02/19/2024 Julien Jordan Jr Right sided abdominal [...] 10:20:00 AM, [address], [address], [place], [address],
--- OUTSIDE RECORDS SUMMARY | 2024-04-23 11:05 | XMS_ITS ---
Author Organization [facility] Address [address] [place] [address] Care Team Providers Care Wire Winder Name Role Phone GARRETT DELGADOD Primary Care Provider Natty Jordan Jr, Julien Payne REASON FOR VISIT labs Encounters Encounter Location Date Provider Diagnosis [facility] [address] [facility] [address] [place] [address] 03/03/2024 Julien Jordan Jr PLAN OF TREATMENT Next Appt Details Provider Name:Julien lee Jr, 01/14/2025 10:20:00 AM, [address], [address], [place], [address],
--- OUTSIDE RECORDS SUMMARY | 2024-04-23 11:05 | XMS_ITS | Patient Health Record ---
Author Organization [facility] Address [address] [place] [address] Care Team Providers Care Seal Delivery Vehicle Officer Name Role Phone JHONY DELGADO Primary Care Provider Julien Johnson Jr [phone] ALLERGIES No Known Allergies RESULTS Component Value Reference Range Notes Complete Blood Count no Diff Reviewed date:01/24/2024 07:43:21 AM Interpretation: Performing Lab:[facility], [address] [place] [address] Notes/Report: White Blood Count 8.9 4.8-10.8 X10*3/uL [...] Panel Reviewed date:01/24/2024 07:43:35 AM Interpretation: Performing Lab:[facility], [address] [place] [address] Notes/Report: Bilirubin Total 0.5 0.0-1.0 mg/dL Bilirubin Direct 0.2 0.0-0.5 mg/dL Aspartate Amino Transferase 26 5-31 U/L Alanine Aminotransferase 21 0-31 U/L Total Protein 7.0 6.5-8.0 g/dL Albumin Level 3.8 3.5-5.0 g/dL Alkaline Phosphatase 87 39-117 U/L Lipase Reviewed date:01/24/2024 07:43:47 AM Interpretation: Performing Lab:[facility], [address] [place] [address] Notes/Report: Lipase 43 8-78 U/L US abdomen complete Reviewed date:02/14/2024 08:35:33 AM Interpretation: Performing Lab: Notes/Report: [address] [address] Ultrasound Report Signed Patient: Joan Viveros MR#: [id number] 4 : 1955 Acct:[id number] Age/Sex: 68 / F ADM Date: 01/23/24 Loc: HO.US Attending Dr: Julien Jordan MD Ordering Physician: Julien Jordan MD Date of Service: 01/23/24 Procedure(s): US abdomen complete Accession Number(s): [id number] cc: Julien Jordan MD; Leandro Delgado MD [...] by: Agusto Egan MD 02/13/2024 10:39 AM [facility] Dictated By: Agusto Egan MD Signed By: <Electronically signed by Agusto Egan MD in OV> 02/13/24 1039 DD/ TD/TT: 01/23/24 0952 Bone Puller: Blood Urea Nitrogen Reviewed date:03/03/2024 04:20:51 PM Interpretation: Performing Lab:[address] [address] Notes/Report: Blood Urea Nitrogen 14 9-16 mg/dL Creatinine Reviewed date:03/03/2024 04:20:45 PM Interpretation: Performing Lab:[facility], [address] [place] [address] Notes/Report: Creatinine 1.41 0.5-1.4 mg/dL Estimated Glomerular Filt Rate 37 Chronic Kidney Disease: Estimated GFR < 60 mL/min/1.73m2 Severe Kidney Disease: Estimated GFR < 15 mL/min/1.73m2 Complete Blood Count no Diff Reviewed date:03/06/2024 09:17:57 AM Interpretation: Performing Lab:[facility], [address] [place] [address] Notes/Report: White Blood Count 9.9 4.8-10.8 X10*3/uL [...] Panel Reviewed date:03/06/2024 09:17:50 AM Interpretation: Performing Lab:[address] [address] Notes/Report: Bilirubin Total 0.3 0.0-1.0 mg/dL Bilirubin Direct 0.1 0.0-0.5 mg/dL Aspartate Amino Transferase 28 5-31 U/L Alanine Aminotransferase 22 0-31 U/L Total Protein 6.9 6.5-8.0 g/dL Albumin Level 3.8 3.5-5.0 g/dL Alkaline Phosphatase 80 39-117 U/L Lipase Reviewed date:03/06/2024 09:17:44 AM Interpretation: Performing Lab:[address] [address] Notes/Report: Lipase 35 8-78 U/L CT abdomen pelvis w con Reviewed date:03/06/2024 09:18:01 AM Interpretation: Performing Lab: Notes/Report: [address] [address] [address] Scan Report Signed Patient: Joan Viveros MR#: [id number] 4 : 1955 Acct:[id number] Age/Sex: 68 / F ADM Date: 03/05/24 Loc: HO.CT Attending Dr: Julien Jordan MD Ordering Physician: Julien Jordan MD Date of Service: 03/05/24 Procedure(s): CT abdomen pelvis w IV con Accession Number(s): [id number] cc: Julien Jordan MD EXAMINATION: CT ABDOMEN [...] OV> 03/05/248 DD/ 1305 TD/TT: 03/05/24 1314 Bone Puller: REASON FOR REFERRAL No Information MEDICATIONS Medication [...] Code Notes Problem Bloating (R14.0) Active confirmed 06542 9008 Problem Weight loss (R63.4) Active confirmed 58613458 Problem Right upper quadrant pain (R10.11) Active confirmed 593948125 Problem Generalized abdominal pain (R10.84) Active confirmed 442547159 Problem Fatty liver (K76.0) Active confirmed 771078025 Problem Elevated lipase (R74.8) Active confirmed 620579938 Problem RUQ pain (R10.11) Active confirmed 235234514 Problem Right sided abdominal pain (R10.9) Active confirmed 726408230 VITAL SIGNS Temperature 97.5 degrees Fahrenheit 01/16/2024 Blood pressure diastolic 00 mm Hg 01/16/2024 Height 65 in 01/16/2024 Blood pressure systolic 000 mm Hg 01/16/2024 Weight 165 lb 2 oz lbs 01/16/2024 BMI 27.48 kg/m2 01/16/2024 Encounters Encounter Location Date Provider Diagnosis [facility] [address] [place] [address] 01/16/2024 Julien Jordan Jr Right upper quadrant pain R10.11 and Fatty liver K76.0 [facility] [address] [place] [address] 01/24/2024 Julien Jordan Jr [facility] [address] [place] [address] 02/08/2024 Julien Jordan Jr [facility] [address] [place] [address] 02/14/2024 Julien Jordan Jr [facility] [address] [place] [address] 02/19/2024 Julien Jordan Jr Right sided abdominal pain R10.9 [facility] [address] [place] [address] 03/03/2024 Julien Jordan Jr [facility] [address] [place] [address] 03/06/2024 Julien Jordan Jr ASSESSMENTS Encounter Date [...] Name:Julien Que lee Jr, 01/14/2025 10:20:00 AM, [address] [place] [address], [address], [place], [address], Insurance Providers Payer Name Payer Address Payer Phone Subscriber Number Group Number Insured Name Patient Relationship to Insured Coverage Start Date Coverage End Date [facility] [address] [address] [place] [address] [id number] JOAN VIVEROS Self - patient is the insured 0 MEDICAL (GENERAL) HISTORY Medical History History ICD Code Erosive gastritis, EGD 03/21, omeprazole x8 weeks, no BE or HP. Colonoscopy 03/21, tubular adenoma, five -year followup 03/26. Hypertension Included cholesterol Surgical History Surgery Date(Month/Year) right shoulder arthroplasty 1985
== END 2024-04-23 10:05 | disposition home or self-care (01) ==
LOC: HO.MAMMO 10:04
PROVIDERS: PCP Hospitalist; Visit Provider Obstetrics & Gynecology
DX: Z13.820 Encounter for screening for osteoporosis (principal); Z78.0 Asymptomatic menopausal state
CPT/HCPCS: 77080

== ENCOUNTER → 2024-04-23 10:30 | Outpatient (BNV) | payer MEDICARE, SELFPAY | PROVIDERS: PCP Hospitalist; Visit Provider Radiology Diagnostic Radiology | DX: E28.39 Other primary ovarian failure (principal) | CPT/HCPCS: 77080 ==

== ENCOUNTER 2024-05-21 10:18 | Outpatient (AMB) | payer MEDICARE, SELFPAY ==
--- NOTE | 2024-05-21 10:21 | MHC.OFFVIS ---
Intake Visit Reasons: Dexa F/U Operating Room Assistant: Operating Room Assistant Present (Jen) Accompanied by: Self / Same As Patient Allergies atorvastatin Allergy (Intermediate, Verified 05/21/24 10:25) Rash red yeast rice Allergy (Verified 05/21/24 10:25) Rash HPI Comments Details: The patient is presenting for follow up regarding DEXA scan results. T score @ spine and femoral Neck respectively were= + 1.4 /+0.3 and 10 year FRAX risk for severe osteoporosis and fracture was not computed because move there was no evidence of osteopenia. 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 FRAX risk and T score showed no evidence of any bone loss. Discussed with the patient all the options for osteoporosis prevention including lifestyle modifications including Ca+D supplements 1200 mg po qd/800 MIU, Weight bearing exercises and proteine supplements. The patient verbalized understanding and agreed plan will repeat DEXA in 2 years. Coding Level of Care Code Est Pt Level 3 (83332) Diagnoses Menopause Z78.0
--- OUTSIDE RECORDS SUMMARY | 2024-05-21 10:53 | XMS_ITS ---
Author Organization [facility] Address [address] [place] [address] Care Team Providers Care Veterinary Poultry Inspector Name Role Phone JHONY DELGADO Primary Care Provider REASON FOR VISIT Fatty liver Encounters Encounter Location Date Provider Diagnosis [facility] [address] [facility] [facility] [address] [place] [address] 02/04/2024 BOOKEREAMON DELGADO Other obesity due to [...] Pending Test Test Name Order Date Albumin/Creatinine Ratio,Urine-[id number] TSH+Free [id number] 02/04/2024 Lipid Panel-[id number] 02/04/2024 Comp. Metabolic Panel [id number] 2023 Progress Notes * COLE VIVEROS MDOB:[birth year] (68 yo F)Acc No.[id number]:02/04/2024 Patient:?COLE VIVEROS :1955???Age:68 Y???Sex:Female Address:[address], [address] [place], [place] [address] Subjective: * Chief Complaints: * ???Fatty liver * Medical History:? * Surgical History:? * Hospitalization/Major Diagno stic Procedure:? * Medications:? Objective: * Vitals:? * Physical Examination:? Assessment: * Assessment: 1.?Other obesity due to exce ss calories - E66.09???2.?Fatty (change of) liver, not elsewhere classified - K76.0??? Plan: * Treatment: 2.?Fatty (change of) liver, not elsewhere classified?LAB: Albumin/Creatinine Ratio,Urine-[id number] ?LAB: Lipid Panel-032408 ?LAB: Comp. Metabolic Panel ([id number] * Procedure Codes:? * true * Date:? Generated for Filemon quesada/Tatyana/eTransmitting on:?05/21/2024 10:53 AM EST
--- OUTSIDE RECORDS SUMMARY | 2024-05-21 10:53 | XMS_ITS | Patient Health Record ---
Author Organization [facility] Address [address] [place] [address] Care Team Providers Care Master Certified Rv Technician Name Role Phone JHONY DELGADO Primary Care Provider Julien Johnson Jr ALLERGIES No Known Allergies RESULTS Component Value Reference Range Notes Complete Blood Count no Diff Reviewed date:01/24/2024 07:43:21 AM Interpretation: Performing Lab:[facility], [address] [place] [address] Notes/Report: White Blood Count 8.9 4.8-10.8 X10*3/uL [...] Reviewed date:01/24/2024 07:43:35 AM Interpretation: Performing Lab:[facility], [address] [place] [address] Notes/Report: Bilirubin Total 0.5 0.0-1.0 mg/dL Bilirubin Direct 0.2 0.0-0.5 mg/dL Aspartate Amino Transferase 26 5-31 U/L Alanine Aminotransferase 21 0-31 U/L Total Protein 7.0 6.5-8.0 g/dL Albumin Level 3.8 3.5-5.0 g/dL Alkaline Phosphatase 87 39-117 U/L Lipase Reviewed date:01/24/2024 07:43:47 AM Interpretation: Performing Lab:[facility], [address] [place] [address] Notes/Report: Lipase 43 8-78 U/L US abdomen complete Reviewed date:02/14/2024 08:35:33 AM Interpretation: Performing Lab: Notes/Report: [address] [address] Ultrasound Report Signed Patient: Joan Viveros MR#: [id number] 4 : 1955 Acct:[id number] Age/Sex: 68 / F ADM Date: 01/23/24 Loc: HO.US Attending Dr: Julien Jordan MD Ordering Physician: Julien Jordan MD Date of Service: 01/23/24 Procedure(s): US abdomen complete Accession Number(s): [id number] cc: Julien Jordan MD; Leandro Delgado MD [...] by: Agusto Egan MD 02/13/2024 10:39 AM [facility] Dictated By: Agusto Egan MD Signed By: <Electronically signed by Agusto Egan MD in OV> 02/13/24 1039 DD/ TD/TT: 01/23/24 0952 Military Pilot: Blood Urea Nitrogen Reviewed date:03/03/2024 04:20:51 PM Interpretation: Performing Lab:[address] [address] Notes/Report: Blood Urea Nitrogen 14 9-16 mg/dL Creatinine Reviewed date:03/03/2024 04:20:45 PM Interpretation: Performing Lab:[facility], [address] [place] [address] Notes/Report: Creatinine 1.41 0.5-1.4 mg/dL Estimated Glomerular Filt Rate 37 Chronic Kidney Disease: Estimated GFR < 60 mL/min/1.73m2 Severe Kidney Disease: Estimated GFR < 15 mL/min/1.73m2 Complete Blood Count no Diff Reviewed date:03/06/2024 09:17:57 AM Interpretation: Performing Lab:[facility], [address] [place] [address] Notes/Report: White Blood Count 9.9 4.8-10.8 X10*3/uL [...] Panel Reviewed date:03/06/2024 09:17:50 AM Interpretation: Performing Lab:[address] [address] Notes/Report: Bilirubin Total 0.3 0.0-1.0 mg/dL Bilirubin Direct 0.1 0.0-0.5 mg/dL Aspartate Amino Transferase 28 5-31 U/L Alanine Aminotransferase 22 0-31 U/L Total Protein 6.9 6.5-8.0 g/dL Albumin Level 3.8 3.5-5.0 g/dL Alkaline Phosphatase 80 39-117 U/L Lipase Reviewed date:03/06/2024 09:17:44 AM Interpretation: Performing Lab:[address] [address] Notes/Report: Lipase 35 8-78 U/L CT abdomen pelvis w con Reviewed date:03/06/2024 09:18:01 AM Interpretation: Performing Lab: Notes/Report: [address] [address] [address] Scan Report Signed Patient: Joan Viveros MR#: [id number] 4 : 1955 Acct:[id number] Age/Sex: 68 / F ADM Date: 03/05/24 Loc: HO.CT Attending Dr: Julien Jordan MD Ordering Physician: Julien Jordan MD Date of Service: 03/05/24 Procedure(s): CT abdomen pelvis w IV con Accession Number(s): [id number] cc: Julien Jordan MD EXAMINATION: CT ABDOMEN [...] OV> 03/05/248 DD/ 1305 TD/TT: 03/05/24 1314 Military Pilot: REASON FOR REFERRAL No Information MEDICATIONS Medication [...] Code Notes Problem Bloating (R14.0) Active confirmed 86574 9008 Problem Weight loss (R63.4) Active confirmed 62712940 Problem Right upper quadrant pain (R10.11) Active confirmed 542361703 Problem Generalized abdominal pain (R10.84) Active confirmed 049420683 Problem Fatty liver (K76.0) Active confirmed 763179018 Problem Elevated lipase (R74.8) Active confirmed 458975084 Problem RUQ pain (R10.11) Active confirmed 454398797 Problem Right sided abdominal pain (R10.9) Active confirmed 008893488 VITAL SIGNS Temperature 97.5 degrees Fahrenheit 01/16/2024 Blood pressure diastolic 00 mm Hg 01/16/2024 Height 65 in 01/16/2024 Blood pressure systolic 000 mm Hg 01/16/2024 Weight 165 lb 2 oz lbs 01/16/2024 BMI 27.48 kg/m2 01/16/2024 Encounters Encounter Location Date Provider Diagnosis [facility] [address] [place] [address] 01/16/2024 Julien Jordan Jr Right upper quadrant pain R10.11 and Fatty liver K76.0 [facility] [address] [place] [address] 01/24/2024 Julien Jordan Jr [facility] [address] [place] [address] 02/08/2024 Julien Jordan Jr [facility] [address] [place] [address] 02/14/2024 Julien Jordan Jr [facility] [address] [place] [address] 02/19/2024 Julien Jordan Jr Right sided abdominal pain R10.9 [facility] [address] [place] [address] 03/03/2024 Julien Jordan Jr [facility] [address] [place] [address] 03/06/2024 Julien Jordan Jr ASSESSMENTS Encounter Date [...] Name:Julien Que lee Jr, 01/14/2025 10:20:00 AM, [address] [place] [address], [address], [place], [address], Insurance Providers Payer Name Payer Address Payer Phone Subscriber Number Group Number Insured Name Patient Relationship to Insured Coverage Start Date Coverage End Date [facility] [address] [address] [place] [address] [id number] JOAN VIVEROS Self - patient is the insured 0 MEDICAL (GENERAL) HISTORY Medical History History ICD Code Erosive gastritis, EGD 03/21, omeprazole x8 weeks, no BE or HP. Colonoscopy 03/21, tubular adenoma, five -year followup 03/26. Hypertension Included cholesterol Surgical History Surgery Date(Month/Year) right shoulder arthroplasty 1985
--- OUTSIDE RECORDS SUMMARY | 2024-05-21 10:53 | XMS_ITS | Clinical Summary ---
Author Organization [facility] Address [address] [place] [address] Care Team Providers Care First Aid Officer Name Role Phone Boo Ochoa MD Primary Care Provider [phone] Allergies No known active allergies Medications Medication [...] age to complete this topic Care Teams First Aid Officer Relationship Specialty Start Date End Date Boo Ochoa MD [address] [place] [address] PCP - General Internal Medicine 08/27/19
--- OUTSIDE RECORDS SUMMARY | 2024-05-21 10:53 | XMS_ITS ---
Author Organization [facility] Address [address] [place] [address] Care Team Providers Care Kitchen Designer Name Role Phone JHONY DELGADO Primary Care [...] Right sided abdominal pain (R10.9) Active confirmed [id number] Encounters Encounter Location Date Provider Diagnosis [facility] [address] [place] [address] 02/19/2024 Julien Jordan Jr Right sided abdominal [...] 10:20:00 AM, [address], [address], [place], [address],
--- OUTSIDE RECORDS SUMMARY | 2024-05-21 10:53 | XMS_ITS | Patient Health Record ---
Author Organization [facility] Address [address] [place] [address] Care Team Providers Care Clinical Interviewer Name Role Phone JHONY DELGADO Primary Care Provider [phone] Allergies Allergen (clinical drug ingredient) Drug/Non Drug Allergy documented on EMR Reaction Allergy Type Onset Date Status Substance with 6-unwzrde-6-methylgluta ryl-coenzyme A reductase inhibitor mechanism of action [...] Notes Problem Obesity due to excess calories (931152359) Other obesity due to excess calories (E66.09) Active confirmed Problem Mixed hyperlipidemia (315556025) Mixed hyperlipidemia (E78.2) Active confirmed Problem Fatty liver (592196143) Fatty (change of) liver, not elsewhere classified (K76.0) Active confirmed Problem Essential hypertension (44090544) Essential (primary) hypertension (I10) Active confirmed Vital Signs Heart Rate 81 /min 07/13/2023 Blood pressure diastolic 78 mm Hg 07/13/2023 Oximetry 98 % 07/13/2023 Height 5'3'' in 07/13/2023 Blood pressure systolic 118 mm Hg 07/13/2023 Weight 174.8 lbs 07/13/2023 BMI 30.96 kg/m2 07/13/2023 Encounters Encounter Location Date Provider Diagnosis [facility] [address] [place] [address] 07/13/2023 JHONY DELGADO Essential (primary) hypertension I10 ; Abdominal pain R10.9 and Mixed hyperlipidemia E78.2 [facility] [address] [place] [address] 06/05/[address] [place] [address] 07/30/[address] [place] [address] 01/24/2024 [facility] [address] [place] [address] 02/04/2024 JHONY DELGADO Other obesity due to [...] is negative. She has a appointment at [place] in the next few weeks for same [...] She has upcoming appointment with GI at [place]. Hypertension. Blood pressure well controlled on current regimen. Continue amlodipine 5 MG once a day Hyperlipidemia. Continue Ezetimibe 10 MG once a day Class 1 Obesity. Advised dietary restrictions and regimental exercise. Goal is to lose 5-6 lbs a month. General health concerns discussed with patient. Scribe services used to formulate this note under HIPAA compliance and under [place] law mandated for scribe services. Patient aware [...] is negative. She has a appointment at [place] in the next few weeks for same reason. Plan is as follows: Abdominal pain. Workup has been negative and she is seen Dr. Joradn and Dr. Iabrra and no positive findings. She has multiple studies including a HIDA scan, CT abdomen and pelvis, EGD, colonoscopy and everything is negative. She mostly complains of right-sided upper abdominal pain. There is no gallbladder pathology noticed on recent imaging. She has a bony notch on the right rib cage area where she complains of discomfort. She has upcoming appointment with GI at [place]. Hypertension. Blood pressure well controlled on current regimen. Continue amlodipine 5 MG once a day Hyperlipidemia. Continue Ezetimibe 10 MG once a day Class 1 Obesity. Advised dietary restrictions and regimental exercise. Goal is to lose 5-6 lbs a month. General health concerns discussed with patient. Scribe services used to formulate this note under HIPAA compliance and under [place] law mandated for scribe services. Patient aware [...] is negative. She has a appointment at [place] in the next few weeks for same [...] She has upcoming appointment with GI at [place]. Hypertension. Blood pressure well controlled on current regimen. Continue amlodipine 5 MG once a day Hyperlipidemia. Continue Ezetimibe 10 MG once a day Class 1 Obesity. Advised dietary restrictions and regimental exercise. Goal is to lose 5-6 lbs a month. General health concerns discussed with patient. Scribe services used to formulate this note under HIPAA compliance and under [place] law mandated for scribe services. Patient aware [...] Name Order Date LIPID PANEL 03/05/2023 Albumin/Creatinine Ratio,Urine-[id number] TSH+Free [id number] 02/04/2024 Lipid Panel-[id number] 02/04/2024 Comp. Metabolic Panel [id number] 2023 Future Test Test Name Order Date 25OH VITAMIN D 01/31/2023 COMPREHENSIVE METABOLIC PANEL 01/31/2023 MICROALBUMIN, URINE 01/31/2023 TSH 01/31/2023 Insurance Providers Payer Name Payer Address Payer Phone Subscriber Number Group Number Insured Name Patient Relationship to Insured Coverage Start Date Coverage End Date [employer] [address] [address] [place] [address] [id number] COLE VIVEROS Self - patient is the insured Medical (General) History Medical History History ICD Code hypertension, benign hyperlipidemia Headaches Abdominal LUQ PAIN SEE Dr Jordan Surgical History Surgery Date(Month/Year) Tuboplasty
--- OUTSIDE RECORDS SUMMARY | 2024-05-21 10:53 | XMS_ITS ---
Author Organization [facility] Address [address] [place] [address] Care Team Providers Care Bench Lathe Operator Name Role Phone JHONY DELGADO Primary Care Provider Natty Jordan Jr, Julien Payne REASON FOR VISIT labs and CT scan Encounters Encounter Location Date Provider Diagnosis [facility] [address] [place] [address] 03/06/2024 Julien Jordan Jr PLAN OF TREATMENT Next Appt Details Provider Name:Julien lee Jr, 01/14/2025 10:20:00 AM, [address], [address], [place], [address],
--- OUTSIDE RECORDS SUMMARY | 2024-05-21 10:53 | XMS_ITS ---
Author Organization [facility] Address [address] [place] [address] Care Team Providers Care Senior Manager Asset Protection Name Role Phone GARRETT DELGADOD Primary Care Provider Natty Jordan Jr, Julien Payne [phone] REASON FOR VISIT labs Encounters Encounter Location Date Provider Diagnosis [facility] [address] [place] [address] 03/03/2024 Julien Jordan Jr PLAN OF TREATMENT Next Appt Details Provider Name:Julien lee Jr, 01/14/2025 10:20:00 AM, [address], [address], [place], [address],
--- OUTSIDE RECORDS SUMMARY | 2024-05-21 10:53 | XMS_ITS ---
Author Organization [facility] Address [address] [place] [address] Care Team Providers Care Pediatric Speech Therapist Name Role Phone JHONY DELGADO Primary Care Provider REASON FOR VISIT Medical record request Encounters Encounter Location Date Provider Diagnosis [facility] [address] [place] [address] 01/24/2024 JHONY DELGADO Plan Of Treatment No Information Progress Notes * COLE VIVEROS MDOB:[birth year] (68 yo F)Acc No.[id number]:01/24/2024 Patient:?COLE VIVEROS :1955???Age:68 Y???Sex:Female Address:[address], [address] [place], [place] [address] * true * Date:? Generated for Filemon quesada/Tatyana/eTransmitting on:?05/21/2024 10:53 AM EST
--- OUTSIDE RECORDS SUMMARY | 2024-05-21 10:53 | XMS_ITS ---
Author Organization [facility] Address [address] [place] [address] Care Team Providers Care Psychiatric Technician Assistant Name Role Phone JHONY DELGADO Primary Care Provider REASON FOR VISIT urgent lab order Encounters Encounter Location Date Provider Diagnosis [facility] [address] [place] [address] 07/30/2023 JHONY DELGADO Plan Of Treatment No Information Progress Notes * COLE VIVEROS MDOB:[birth year] (67 yo F)Acc No.[id number]:07/30/2023 Patient:?COLE VIVEROS :1955???Age:67 Y???Sex:Female Address:[address] [place], [place] [address] * true * Date:? Generated for Filemon quesada/Tatyana/eTransmitting on:?05/21/2024 10:52 AM EST
--- OUTSIDE RECORDS SUMMARY | 2024-05-21 10:53 | XMS_ITS | Clinical Summary ---
Author Organization [facility] Address [address] [place] [address] Care Team Providers Care Combo Welder Name Role Phone Daxa Harrison MD Primary Care Provider [phone] Social History Tobacco Use Types Packs/Day Years [...] Recently Relevant to Health Maintenance Care Teams Combo Welder Relationship Specialty Start Date End Date Daxa Harrison MD PCP - General 05/28/18
--- OUTSIDE RECORDS SUMMARY | 2024-05-21 10:53 | XMS_ITS | Continuity of Care Document ---
Author Organization [facility] [address] [place] [address] Phone [phone] Care Team Providers Care Catalyst Operator Chief Name Role Phone Anaid Chakraborty Care Team Information Enterprise Sales Executive [phone] Problems Active Problems Provider Date Hypercholesterolemia Shahid [...] SIG Qnty Indications Ordering Provider Date Amlodipine Yuzxqohe7uw Tablets Take 1 Tablet By Mouth Every Day Eric Saavedra MD Carvedilol3.125mg Tablets Take 1 Tablet By Mouth Twice A Day Must Take With Meal Food Eric Saavedra MD Atorvastatin Grbkdzx67po Tablets Take 1 Tablet By Mouth Everyday AT Bedtime Eric Saavedra MD Ihpkgjaoi55md Tablets Take One Tablet By Mouth Every Day Eric Saavedra MD Vital Signs Date Vital Result Comment 05/17/2022 9:11am BP Systolic 140 mmHg BP Diastolic 90 mmHg Heart Rate 72 /min Height 64 inches 5'4 Weight 174.00 lb BMI (Body Mass Index) 29.9 kg/m2 Results Test Acquired Date Facility Test Result H/L Range N ote Laboratory test finding 05/17/2022 [facility] Free T4 1.03 ng/dL [...] Postmenopausal 7 - 40 Test performed by [facility], [address] [place] [address] Reference Range: Follicular: 3.5-12.5 mIU/mL Ovulation: [...]
--- OUTSIDE RECORDS SUMMARY | 2024-05-21 10:54 | XMS_ITS | Clinical Summary ---
Author Organization [facility] Address [address] [place] [address] Care Team Providers Care Liner Assembler Name Role Phone Boo Ochoa MD Primary Care Provider [phone] Medical History Medical History Date Comments Cancer [...] drink = 0.6 oz pur e alcohol) Comments Unknown Sex and Gender Information Value Date Recorded Sex Assigned at Not on file Legal Sex Female 5:41 AM EST Gender Identity Not on file Sexual Orientation Not on file Obstetrics History Plan of Treatment Health Maintenance Due Date Last Done Comments Breast Cancer Screening 1955 DTaP,Tdap,and Td Vaccines (1 - Tdap) 1973 Pneumococcal Vaccine: 50+ Ye ars (1 of 1 - PCV) 2004 Zoster Vaccines (1 of 2) 2004 COVID-19 Vaccine ( - 2023-2 5 season) [...] patient's age to complete this topic Meningococcal B Vacine Aged Out No lo nger eligible based on patient's age to complete this topic RSV Immunization Patients Un roddy 20 months Aged Out No longer eligible b ased on patient's age to complete this topic Varicella Vaccines Aged Out No longer eligible based on patient's age to complete this topic Care Teams Liner Assembler Relationship Specialty Start Date End Date Boo Ochoa MD [address] [place] [address] PCP - General Internal Medicine 08/27/19
== END 2024-05-21 10:30 | disposition home or self-care (01) ==
LOC: HO.HWS 10:18
PROVIDERS: PCP Hospitalist; Visit Provider Obstetrics & Gynecology
DX: Z78.0 Asymptomatic menopausal state (principal)
CPT/HCPCS: 99213

== ENCOUNTER → 2024-05-21 10:18 | Outpatient (BNVA) | payer MEDICARE, SELFPAY | PROVIDERS: PCP Hospitalist; Visit Provider Obstetrics & Gynecology | DX: Z78.0 Asymptomatic menopausal state (principal) | CPT/HCPCS: 99212 ==

== ENCOUNTER 2024-07-14 13:28 | Outpatient (REF) | payer MEDICARE, SELFPAY ==
--- OUTSIDE RECORDS SUMMARY | 2024-07-14 15:30 | XMS_ITS ---
Author Organization [facility] Address [address] [place] [address] Care Team Providers Care Java Consultant Name Role Phone JHONY DELGADO Primary Care Provider Julien Johnson Jr REASON FOR VISIT labs Encounters Encounter Location Date Provider Diagnosis [facility] [address] [place] [address] 03/03/2024 Julien Jordan Jr Plan Of Treatment Next Appt Details Provider Name:Julien lee Jr, 01/14/2025 10:20:00 AM, [address], [address], [place], [address], Progress Notes * COLE VIVEROS MDOB:[birth year] (68 yo F)Acc No.[id number]:03/03/2024 Patient:?COLE VIVEROS :1955???Age:68 Y???Sex:Female Address:[address], [place], [address] * true * Date:? Generated for Printi ng/Tatyana/eTransmitting on:?07/14/2024 03:30 PM EDT
--- OUTSIDE RECORDS SUMMARY | 2024-07-14 15:30 | XMS_ITS ---
Author Organization [facility] Address [address] [place] [address] Care Team Providers Care Foundry Worker Apprentice Name Role Phone JHONY DELGADO Primary Care Provider Julien Johnson Jr REASON FOR VISIT abd pain Medications Medication SIG (Take, Route, Fr equency, Duration) Notes Start Date End Date Status Dicyclomine HCl 20 MG 1 tablet Orally 2- 4 times a day 02/20/2024 Active Problems Problem Type SNOMED Code ICD Code Onset Dates Problem Status W/U Status Risk Notes Problem [id number] Right sided abdominal pain (R10.9) Active confirmed Encounters Encounter Location Date Provider Diagnosis [facility] [address] [place] [address] 02/19/2024 Julien Jordan Jr Right sided abdominal pain R10.9 Assessments Encounter Date Diagnosis (ICD Code) Assessment Notes Treatment Notes Treatment Clinical Notes Section Notes 02/19/2024 Right sided abdominal pain (ICD-10 - R10.9) Plan Of Treatment Medication Medication Name Sig Start Date Stop Date Notes Dicyclomine HCl 20 MG 1 tablet Orally 2-4 times a day 02/01 Pending Test Test Name Order Date BUN 02/19/2024 CREATININE 02/19/2024 LIVER PROFILE 02/19/2024 LIPASE 02/19/2024 CBC w/o DIFF 02/19/2024 CT ABD & PELVIS WITH CONTRAST 02/19/2024 Next Appt Details Provider Name:Julien lee Jr, 01/14/2025 10:20:00 AM, [address], [address], [place], [address], Progress Notes * COLE VIVEROS MDOB:[birth year] (68 yo F)Acc No.[id number]:02/19/2024 Patient:?COLE VIVEROS :1955???Age:68 Y???Sex:Female Address:[place] [address], [place], [place], [place] [address] * Refills? Start Dicyclomine HCl Tablet, 20 MG, Orally, 120, 1 tablet, 2-4 times a day, Refills=6 Subjective: * Chief Complaints: * ???Abd pain * Medical History:? * Surgical History:? * Hospitalization/Major Diagno stic Procedure:? * Medications:? Objective: Assessment: * Assessment: 1.?Right sided abdominal luis n - R10.9 (Primary)? Plan: * Treatment: 2.?Others? Start Dicyclomine HCl Tablet, 20 MG, 1 tablet, Orally, 2-4 times a day, 120, Refills 6.?? * Procedure Codes:? * true * Date:? Generated for Filemon quesada/Tatyana/eTransmitting on:?07/14/2024 03:30 PM EDT
--- OUTSIDE RECORDS SUMMARY | 2024-07-14 15:31 | XMS_ITS | Continuity of Care Document ---
Author Organization [facility] [address] [place] [address] Phone [phone] Care Team Providers Care Administrative Assistant Data Entry Name Role Phone Anaid Chakraborty Care Team Information System Support Analyst [phone] Problems Active Problems Provider Date Hypercholesterolemia Shahid [...] SIG Qnty Indications Ordering Provider Date Amlodipine Onwnozde0ha Tablets Take 1 Tablet By Mouth Every Day Eric Saavedra MD Carvedilol3.125mg Tablets Take 1 Tablet By Mouth Twice A Day Must Take With Meal Food Eric Saavedra MD Atorvastatin Lykipon89xd Tablets Take 1 Tablet By Mouth Everyday AT Bedtime Eric Saavedra MD Ghiunwkpz89xj Tablets Take One Tablet By Mouth Every Day Eric Saavedra MD Vital Signs Date Vital Result Comment 05/17/2022 9:11am BP Systolic 140 mmHg BP Diastolic 90 mmHg Heart Rate 72 /min Height 64 inches 5'4 Weight 174.00 lb BMI (Body Mass Index) 29.9 kg/m2 Results Test Acquired Date Facility Test Result H/L Range N ote Free T4 05/17/2022 [facility] Free T4 1.03 ng/dL (0.70-1.80 ) TSH 05/17/2022 [facility] TSH 2.00 uIU/mL (0.4-4.2) Prolactin 05/17/2022 [facility] Prolactin 8.4 NG/ML (4.8-23.3) Testosterone, Total 05/17/2022 [facility] Testosterone, Total 24 1 Dhea Sulfate 05/17/2022 [facility] Dhea Sulfate 139.0 g /dL (9-246) FSH 05/17/2022 [facility] FSH 92.1 MIU/ML 2 LH 05/17/2022 [facility] LH 56.6 MIU/ML 3 1 Unit: ng/dL (NOTE) This test was developed and its performance characteristics determined by [facility]. It has not been cleared or approved by the Food and Drug Administration. Reference Range: Adult Females Premenopausal 10 - 55 Postmenopausal 7 - 40 Test performed by [facility], [address] [place] [address] Reference Range: Follicular: 3.5-12.5 mIU/mL Ovulation: [...]
--- OUTSIDE RECORDS SUMMARY | 2024-07-14 15:31 | XMS_ITS | Clinical Summary ---
Author Organization [facility] Address [address] [place] [address] Care Team Providers Care Rotary Drill Operator Helper Name Role Phone Boo Ochoa MD Primary Care Provider [phone] Allergies No known active allergies Medications Medication [...] age to complete this topic Care Teams Rotary Drill Operator Helper Relationship Specialty Start Date End Date Boo Ochoa MD [address] [place] [address] PCP - General Internal Medicine 08/27/19
--- OUTSIDE RECORDS SUMMARY | 2024-07-14 15:31 | XMS_ITS ---
Author Organization [facility] Address [address] [place] [address] Care Team Providers Care Legal Researcher Name Role Phone JHONY DELGADO Primary Care Provider REASON FOR VISIT urgent lab order Encounters Encounter Location Date Provider Diagnosis [facility] [address] [place] [address] 07/30/2023 JHONY DELGADO Plan Of Treatment No Information Progress Notes * COLE VIVEROS MDOB:[birth year] (67 yo F)Acc No.[id number]:07/30/2023 Patient:?COLE VIVEROS :1955???Age:67 Y???Sex:Female Address:[address], [address] [place], [place] [address] * true * Date:? Generated for Madii sangita/Tatyana/eTransmitting on:?07/14/2024 03:30 PM EDT
--- OUTSIDE RECORDS SUMMARY | 2024-07-14 15:31 | XMS_ITS ---
Author Organization [facility] Address [address] [place] [address] Care Team Providers Care Elevated Motorman Name Role Phone JHONY DELGADO Primary Care Provider REASON FOR VISIT Medical record request Encounters Encounter Location Date Provider Diagnosis [facility] [address] [place] [address] 01/24/2024 JHONY DELGADO Plan Of Treatment No Information Progress Notes * COLE VIVEROS MDOB:[birth year] (68 yo F)Acc No.[id number]:01/24/2024 Patient:?COLE VIVEROS :1955???Age:68 Y???Sex:Female Address: [address], [address] [place], [place] [address] * true * Date:? Generated for Filemon quesada/Tatyana/eTransmitting on:?07/14/2024 03:30 PM EDT
--- OUTSIDE RECORDS SUMMARY | 2024-07-14 15:31 | XMS_ITS | Patient Health Record ---
Author Organization [facility] Address [address] [place] [address] Care Team Providers Care Outplacement Consultant Name Role Phone SANDY JHONY Primary Care Provider Allergies Allergen (clinical drug ingredient) Drug/Non Drug Allergy documented on EMR Reaction Allergy Type Onset Date Status Substance with 9-nrlbtyb-2-methylgluta ryl-coenzyme A reductase inhibitor mechanism of action [...] Notes Problem Obesity due to excess calories (685719321) Other obesity due to excess calories (E66.09) Active confirmed Problem Mixed hyperlipidemia (026915072) Mixed hyperlipidemia (E78.2) Active confirmed Problem Fatty liver (226056627) Fatty (change of) liver, not elsewhere classified (K76.0) Active confirmed Problem Essential hypertension (37447656) Essential (primary) hypertension (I10) Active confirmed Encounters Encounter Location Date Provider Diagnosis [address] [place] [address] 07/30/2023 JHONY DELGADO [address] [address] 01/24/2024 JHONY DELGADO [facility] [address] [facility] [address] [facility] [place] [address] 02/04/2024 JHONY DELGADO Other obesity due to [...] Name Order Date LIPID PANEL 03/05/2023 Albumin/Creatinine Ratio,Urine-[id number] TSH+Free [id number] 02/04/2024 Lipid Panel-[id number] 02/04/2024 Comp. Metabolic Panel ([id number] 2023 Future Test Test Name Order Date 25OH VITAMIN D 01/31/2023 COMPREHENSIVE METABOLIC PANEL 01/31/2023 MICROALBUMIN, URINE 01/31/2023 TSH 01/31/2023 Insurance Providers Payer Name Payer Address Payer Phone Subscriber Number Group Number Insured Name Patient Relationship to Insured Coverage Start Date Coverage End Date [employer] [address] [address] [place] [address] [id number] JACKELINE COLE Self - patient is the insured Medical (General) History Medical History History ICD Code hypertension, benign hyperlipidemia Headaches Abdominal LUQ PAIN SEE Dr Jordan Surgical History Surgery Date(Month/Year) Tuboplasty
--- OUTSIDE RECORDS SUMMARY | 2024-07-14 15:31 | XMS_ITS | Patient Health Record ---
Author Organization [facility] Address [address] [place] [address] Care Team Providers Care Quality Assurance Monitor Chassis Name Role Phone JHONY DELGADO Primary Care Provider Julien Johnson Jr Allergies No Known Allergies Results Component Value Reference Range Notes Complete Blood Count no Diff Reviewed date:01/24/2024 07:43:21 AM Interpretation: Performing Lab:[facility], [address] [place] [address] Notes/Report: White Blood Count 8.9 4.8-10.8 X10*3/uL [...] Panel Reviewed date:01/24/2024 07:43:35 AM Interpretation: Performing Lab:[facility], [address] [place] [address] Notes/Report: Bilirubin Total 0.5 0.0-1.0 mg/dL Bilirubin Direct 0.2 0.0-0.5 mg/dL Aspartate Amino Transferase 26 5-31 U/L Alanine Aminotransferase 21 0-31 U/L Total Protein 7.0 6.5-8.0 g/dL Albumin Level 3.8 3.5-5.0 g/dL Alkaline Phosphatase 87 39-117 U/L Lipase Reviewed date:01/24/2024 07:43:47 AM Interpretation: Performing Lab:[facility], [address] [place] [address] Notes/Report: Lipase 43 8-78 U/L US abdomen complete Reviewed date:02/14/2024 08:35:33 AM Interpretation: Performing Lab: Notes/Report: [address] [address] Ultrasound Report Signed Patient: Joan Viveros MR#: [id number] 4 : 1955 Acct:[id number] Age/Sex: 68 / F ADM Date: 01/23/24 Loc: HO.US Attending Dr: Julien Jordan MD Ordering Physician: Julien Jordan MD Date of Service: 01/23/24 Procedure(s): US abdomen complete Accession Number(s): [id number] cc: Julien Jordan MD; Leandro Delgado MD [...] Agusto Egan MD 02/13/2024 10:39 AM [facility] Dictated By: Agusto Egan MD Signed By: <Electronically signed by Agusto Egan MD in OV> 02/13/24 1039 DD/ TD/TT: 01/23/2452 Local Combination Truck Driver: [place] [address] Ultrasound Report Signed Patient: Luis A Viveros MR#: [id number] 4 : 1955 Acct:[id number] Age/Sex: 68 / F ADM Date: 01/23/24 Loc: .US Attending Dr: Leonard Jordan MD Ordering Physician: Julien Jordan MD Date of Service: 01/23/24 Procedure(s): US abd omen complete Accession Number(s): [id number] cc: Julien Jordan MD; Leandro Delgado MD [...] 20 cm in greatest length with increased echogenici ty consistent with hepatic steatosis. . The liver contour is normal. N o focal hepatic lesion. There is no intrahepatic biliary duct dilatat ion seen. GALLBLADDER: Normal. The gallbladder is physiologically distended without evidence of stones, sludge, polyps, wall thickening or pericholecystic fluid. COMMON BILE DUCT: No rmal in caliber measuring 0.4 cm in diameter. RIGHT KIDNEY: A daksha gn exophytic upper pole 1.9 cm Bosniak class I renal cyst is noted which requires no additional imaging or follow up. No solid renal yumi s are seen. There is an echogenic focus [...] cm in maximum dimension. FREE FLUID: None. U S/US abdomen complete IMPRESSION: 1. Enlarged fatty liver. 2. Nonobstructing 5 mm right upper pole renal calculus, similar to prior. Electronically radha d by: Agusto Egan MD 02/13/2024 10:39 AM [facility] Dictated By: Agusto Egan MD Signed By: <Electronically signed by Agusto Egan MD in OV> 02/13/24 1039 DD/ TD/TT: 01/23/24 0952 Local Combination Truck Driver: SIVA Blood Urea Nitrogen Reviewed date:03/03/2024 04:20:51 PM Interpretation: Performing Lab:[facility], [address] [place] [address] Notes/Report: Blood Urea Nitrogen 14 9-16 mg/dL Creatinine Reviewed date:03/03/2024 04:20:45 PM Interpretation: Performing Lab:[facility], [address] [place] [address] Notes/Report: Creatinine 1.41 0.5-1.4 mg/dL Estimated Glomerular Filt Rate 37 Chronic Kidney Disease: Estimated GFR < 60 mL/min/1.73m2 Severe Kidney Disease: Estimated GFR < 15 mL/min/1.73m2 Complete Blood Count no Diff Reviewed date:03/06/2024 09:17:57 AM Interpretation: Performing Lab:[facility], [address] [place] [address] Notes/Report: White Blood Count 9.9 4.8-10.8 X10*3/uL [...] Panel Reviewed date:03/06/2024 09:17:50 AM Interpretation: Performing Lab:[facility], [address] [place] [address] Notes/Report: Bilirubin Total 0.3 0.0-1.0 mg/dL Bilirubin Direct 0.1 0.0-0.5 mg/dL Aspartate Amino Transferase 28 5-31 U/L Alanine Aminotransferase 22 0-31 U/L Total Protein 6.9 6.5-8.0 g/dL Albumin Level 3.8 3.5-5.0 g/dL Alkaline Phosphatase 80 39-117 U/L Lipase Reviewed date:03/06/2024 09:17:44 AM Interpretation: Performing Lab:[facility], [address] [place] [address] Notes/Report: Lipase 35 8-78 U/L CT abdomen pelvis w con Reviewed date:03/06/2024 09:18:01 AM Interpretation: Performing Lab: Notes/Report: [address] [address] [address] Scan Report Signed Patient: Joan Viveros MR#: [id number] 4 : 1955 Acct:[id number] Age/Sex: 68 / F ADM Date: 03/05/24 Loc: HO.CT Attending Dr: Jluien Jordan MD Ordering Physician: Julien Jordan MD Date of Service: 03/05/24 Procedure(s): CT abdomen pelvis w IV con Accession Number(s): [id number] cc: Julien Jordan MD EXAMINATION: CT ABDOMEN [...] by: Sarah Peguero MD 03/05/2024 09:48 PM [facility] Dictated By: Sophia Peguero Signed By: <Electronically signed by Sophia Peguero in OV> 03/05/24 2148 DD/ 1305 TD/TT: 03/05/24 1314 Local Combination Truck Driver: [place] [address] CT Scan Report Signed Patient: Luis A Viveros MR#: [id number] 4 : 1955 Acct:[id number] Age/Sex: 68 / F ADM Date: 03/05/24 Loc: HO.CT Attending Dr: Leonard Jordan MD Ordering Physician: Julien Jordan MD Date of Service: 03/05/24 Procedure(s): CT abd omen pelvis w IV con Accession Number(s): [id number] cc: Julien Jordan MD EXAMINATION: CT ABDOMEN AND PELVI S WITH CONTRAST CLINICAL INFORMATION: Right-sided abdomina l pain COMPARISON: CT abdomen/pelvis da keaton 03/06/2023 TECHNIQUE: Multidetector volume tric images were obtained from the superior aspect of the liver through the pubic symphysis following administration 85 mL of Omnipaque 350 intravenous contrast. Sagittal and coronal reformatted images were obtained on the technologist's workstation. Oral contrast: No This CT examination was performed using dose optimization techniques as appropriate, various ly including the following: *Automated exposure control *Adjustment of mA an d/or kV according to patient size (this includes techniques or standardized protocols for targeted exams where dose is matched to indication/reason for exam; i.e. extremities or head) *Use of iterative reconstruction technique DLP: 428 mGy-cm FINDINGS: LUNG BASES: The visualized lung bases are unremarkable. LIVER, GALLBLADDER, AND BILIARY TREE: The liver is enlarged measuring 18.6 cm in craniocau madai dimension and diffusely low in attenuation in keeping with hepatic steatosis. No focal hepatic lesion or biliary ductal dilatation is present. The gallbladder is unremarkable with no evidence of radiopaq ue gallstones, gallbladder wall thickening, or obvious pericholecys tic inflammatory changes. PANCREAS: Unremarkable. SPLEEN: Unremarkable. ADRENAL GLANDS: Unremarkable. KIDNEYS AND URETERS: Stable mild right pelvocaliectasis. No evidence of obstructing stone or mass. No left hydronephrosis. The kidneys are otherwise normal in size, shape, and attenuation. No calculi seen. No perinephric strandin g. 1.5 cm simple cyst in the upper pole of the right kidney is like ly benign and does not require further imaging follow-up. BLADDER: Unremarkable. GASTROINTESTINAL TRA CT: The small and large bowel are unremarkable. The appendix is unremarkable. ABDOMINAL WALL: No significant hernia is appreciated. LYMPH NODES: Normal. VASCULAR: Atheroscle rosis of aorta and its branches. No abdominal aortic aneurysm. PELVIC VISCERA: Unremarkable. OSSEOUS STRUCTURES: Degenerative changes of the visualized spine. C T/CT abdomen pelvis w IV con IMPRESSION: 1. No acute abnormal ity within the abdomen or pelvis. 2. Hepatomegaly and hepatic steatosis. 3. Stable mild right pelvocaliectasis. No evidence of obstructing stone or mass. Fleischner guideline s were followed. Electronically radha d by: Sarah Peguero MD 03/05/2024 09:48 PM [facility] Dictated By: Sophia Peguero Signed By: <Electronically signed by Sophia Peguero in OV> 03/05/24 2148 DD/ 1305 TD/TT: 03/05/24 1314 Local Combination Truck Driver: Reason For Referral No Information Medications Medication SIG (Take, Route, Frequency, Duration) Notes Start Date End Date Status Ezetimibe 10 MG Oral for 30 Ac tive Multivitamin Adult A ctive amLODIPine Besy-Benazepril HCl 5-10 MG as directed Orally Active Dicyclomine HCl 20 MG 1 tablet Orally 2- 4 times a day 02/20/2024 Active Immunizations Vaccine Route Administration Date Status Comme nts Influenza Unknown 03/19/2020 Refused Influenza Unknown 02/27/2022 Refused Influenza Unknown 01/15/2023 Refused Social History Tobacco Use: Social History Observation Description Date Details (start date - stop date) Never Smoker NA - NA Tobacco Use/Smoking Question Answer Notes Patient is a nonsmoker Alcohol Screen Question Answer Notes Did you have a drink containing alcohol in the p ast year? No Points 0 Interpretation Negative Problems Problem Type SNOMED Code ICD Code Onset Dates Problem Status W/U Status Risk Notes Problem 932954344 Bloating (R14.0) Active confirmed Problem 37909972 Weight loss (R63.4) Active confirmed Problem 623301149 Right upper quadrant pain (R10.11) Active confirmed Problem 544632450 Generalized abdominal pain (R10.84) Active confirmed Problem 168608361 Fatty liver (K76.0) Active confirmed Problem 564237127 Elevated lipase (R74.8) Active confirmed Problem 795354323 RUQ pain (R10.11) Active confirmed Problem 719940042 Right sided abdominal pain (R10.9) Active confirmed Vital Signs Temperature 97.5 degrees Fahrenheit 01/16/2024 Blood pressure diastolic 00 mm Hg 01/16/2024 Height 65 in 01/16/2024 Blood pressure systolic 000 mm Hg 01/16/2024 Weight 165 lb 2 oz lbs 01/16/2024 BMI 27.48 kg/m2 01/16/2024 Encounters Encounter Location Date Provider Diagnosis [facility] [address] [place] [address] 01/16/2024 Julien Jordan Jr Right upper quadrant pain R10.11 and Fatty liver K76.0 [facility] [address] [place] [address] 01/24/2024 Julien Jordan Jr [facility] [address] [place] [address] 02/08/2024 Julien Jordan Jr [facility] [address] [place] [address] 02/14/2024 Julien Jordan Jr [facility] [address] [place] [address] 02/19/2024 Julien Jordan Jr Right sided abdominal pain R10.9 [facility] [address] [place] [address] 03/03/2024 Julien Jordan Jr [facility] [address] [place] [address] 03/06/2024 Julien Jordan Jr Assessments Encounter Date Diagnosis (ICD Code) Assessment Notes Treatment Notes Treatment Clinical Notes Section Notes 01/16/2024 Right upper quadrant pain (ICD-10 - R10.11) Gas - flatulence material was printed We discussed her symptoms today. We discussed fatty liver today. Further evaluation with ultrasound will be obtained. She will have lab work. Followup will be in one year. 01/16/2024 Fatty liver (ICD-10 - K76.0) We discussed her symptoms today. We discussed fatty liver today. Further evaluation with ultrasound will be obtained. She will have lab work. Followup will be in one year. 02/19/2024 Right sided abdominal pain (ICD-10 - R10.9) Plan Of Treatment Pending Test Test Name Order Date BUN 02/08/2023 BUN 02/19/2024 CREATININE 02/19/2024 CREATININE 02/08/2023 LIVER PROFILE 02/19/2024 LIVER PROFILE 10/11/2020 LIVER PROFILE 01/16/2024 LIVER PROFILE 03/19/2020 LIVER PROFILE 01/15/2023 LIPASE 02/19/2024 LIPASE 10/11/2020 LIPASE 01/16/2024 LIPASE 03/19/2020 LIPASE 01/15/2023 CBC w DIFF 10/11/2020 CBC w/o DIFF 03/19/2020 CBC w/o DIFF 01/15/2023 CBC w/o DIFF 02/19/2024 CBC w/o DIFF 01/16/2024 CT ABD & PELVIS WITH CONTRAST 02/07/2023 CT ABD & PELVIS WITH CONTRAST 02/19/2024 US ABD 01/16/2024 US ABD 10/11/2020 HIDA SCAN GB WITH CCK 02/27/2022 Liver Fibrosis Pnl 01/15/2023 Future Test Test Name Order Date UPPER GI ENDOSCOPY 03/19/2020 COLONOSCOPY 03/19/2020 Next Appt Details Provider Name:Julien lee Jr, 01/14/2025 10:20:00 AM, [address], [address], [place], [address], Insurance Providers Payer Name Payer Address Payer Phone Subscriber Number Group Number Insured Name Patient Relationship to Insured Coverage Start Date Coverage End Date [facility] [address] [address] [place] [address] [id number] JOAN VIVEROS Self - patient is the insured 0 Medical (General) History Medical History History ICD Code Erosive gastritis, EGD 03/21, omeprazole x8 weeks, no BE or HP. Colonoscopy 03/21, tubular adenoma, five -year followup 03/26. Hypertension Included cholesterol Surgical History Surgery Date(Month/Year) right shoulder arthroplasty 1985
--- OUTSIDE RECORDS SUMMARY | 2024-07-14 15:32 | XMS_ITS ---
Author Organization [facility] Address [address] [place] [address] Care Team Providers Care Drywall Finisher Name Role Phone JHONY DELGADO Primary Care Provider REASON FOR VISIT Fatty liver Encounters Encounter Location Date Provider Diagnosis [facility] [address] [place] [address] 02/04/2024 BOOKEREAMON DELGADO Other obesity due to [...] Pending Test Test Name Order Date Albumin/Creatinine Ratio,Urine-460114 TSH+Free [id number] 02/04/2024 Lipid Panel-[id number] 02/04/2024 Comp. Metabolic Panel ([id number] 2023 Progress Notes * COLE VIVEROS MDOB:[birth year] (68 yo F)Acc No.[id number]:02/04/2024 Patient:?COLE VIVEROS :1955???Age:68 Y???Sex:Female Address:[address], [address] [place], [place] [address] Subjective: * Chief Complaints: * ???Fatty liver * Medical History:? * Surgical History:? * Hospitalization/Major Diagno stic Procedure:? * Medications:? Objective: * Vitals:? * Physical Examination:? Assessment: * Assessment: 1.?Other obesity due to exce ss calories - E66.09???2.?Fatty (change of) liver, not elsewhere classified - K76.0??? Plan: * Treatment: 2.?Fatty (change of) liver, not elsewhere classified?LAB: Albumin/Creatinine Ratio,Urine-086657 ?LAB: Lipid Panel-555425 ?LAB: Comp. Metabolic Panel [id number] * Procedure Codes:? * true * Date:? Generated for Filemon quesada/Tatyana/Aroldosmitting on:?07/14/2024 03:32 PM EDT
--- OUTSIDE RECORDS SUMMARY | 2024-07-14 15:32 | XMS_ITS ---
Author Organization [facility] Address [address] [place] [address] Care Team Providers Care Cuff Turner Name Role Phone JHONY DELGADO Primary Care Provider Julien Johnson Jr REASON FOR VISIT labs and CT scan Encounters Encounter Location Date Provider Diagnosis [facility] [address] [place] [address] 03/06/2024 Julien Jordan Jr Plan Of Treatment Next Appt Details Provider Name:Julien lee Jr, 01/14/2025 10:20:00 AM, [address], [address], [place], [address], Progress Notes * COLE VIVEROS MDOB:[birth year] (68 yo F)Acc No.[id number]:03/06/2024 Patient:?COLE VIVEROS :1955???Age:68 Y???Sex:Female Address:[address], [place], [address] * true * Date:? Generated for Printi ng/Blasg/eTransmitting on:?07/14/2024 03:31 PM EDT
--- OUTSIDE RECORDS SUMMARY | 2024-07-14 15:32 | XMS_ITS | Clinical Summary ---
Author Organization [facility] Address [address] [place] [address] Care Team Providers Care Upholstery Sewer Name Role Phone Daxa Harrison MD Primary Care Provider [phone] Social History Tobacco Use Types Packs/Day Years [...] Recently Relevant to Health Maintenance Care Teams Upholstery Sewer Relationship Specialty Start Date End Date Daxa Harrison MD PCP - General 05/28/18
--- OUTSIDE RECORDS SUMMARY | 2024-07-14 15:32 | XMS_ITS | Clinical Summary ---
Author Organization [facility] Address [address] [place] [address] Care Team Providers Care Care Director Rn Name Role Phone Boo Ochoa MD Primary Care Provider [phone] Medical History Medical History Date Comments Cancer (CMS/HCC V24, CMS/HCC V28) DX:Cancer (HCC);COMMENT:AGE 24 Breast discharge DX:Breast disch arge;COMMENT:RT MILKY [...] - 2023-2 5 season) 2023 Influenza Vaccine (Season Ended) 2024 RSV Immunization Adult Patie nts (1 - 1-dose 75+ series) 2029 HIB [...] age to complete this topic Meningococcal B Vaccine Aged Out No l onger eligible based on patient's age to complete this topic RSV Immunization Patients Un roddy 20 months Aged Out No longer eligible b ased on patient's age to complete this topic Varicella Vaccines Aged Out No longer eligible based on patient's age to complete this topic Care Teams Care Director Rn Relationship Specialty Start Date End Date Boo Ochoa MD [address] [place] [address] PCP - General Internal Medicine 08/27/19
== END 2024-07-14 13:29 | disposition home or self-care (01) ==
LOC: HO.MAMMO 13:28
PROVIDERS: PCP Hospitalist; Visit Provider Hospitalist
DX: Z12.31 Encounter for screening mammogram for malignant neoplasm of breast (principal)
CPT/HCPCS: 77063; 77067

== ENCOUNTER → 2024-07-14 14:00 | Outpatient (BNV) | payer MEDICARE, SELFPAY | PROVIDERS: PCP Hospitalist; Visit Provider Internal Medicine | DX: Z12.31 Encounter for screening mammogram for malignant neoplasm of breast (principal) | CPT/HCPCS: 77063; 77067 ==

== ENCOUNTER 2024-08-01 06:58 | Outpatient (REF) | payer MEDICARE, SELFPAY ==
--- OUTSIDE RECORDS SUMMARY | 2024-08-01 07:02 | XMS_ITS ---
Author Organization [facility] Address [address] [place] [address] Care Team Providers Care [employer] Emergency Services Dispatcher Name Role Phone JHONY DELGADO Primary Care Provider REASON FOR VISIT urgent lab order Encounters Encounter Location Date Provider Diagnosis [facility] [address] [place] [address] 07/30/2023 JHONY DELGADO Plan Of Treatment No Information Progress Notes * COLE VIVEROS MDOB:[birth year] (67 yo F)Acc No.[id number]:07/30/2023 Patient:?COLE VIVEROS :1955???Age:67 Y???Sex:Female Address:[address], [address] [place] [address] * true * Date:? Generated for Filemon quesada/Tatyana/eTransmitting on:?08/01/2024 07:01 AM EDT
--- OUTSIDE RECORDS SUMMARY | 2024-08-01 07:02 | XMS_ITS ---
Author Organization [facility] Address [address] [facility] [address] [place] [address] Care Team Providers Care Elastic Tape Inserter Name Role Phone JHONY DELGADO Primary Care Provider REASON FOR VISIT Fatty liver Encounters Encounter Location Date Provider Diagnosis [facility] [address] [facility] [address] [place] [address] 02/04/2024 BOOKEREAMON DELGADO Other obesity due to [...] Pending Test Test Name Order Date Albumin/Creatinine Ratio,Urine-[id number] TSH+Free [id number] 02/04/2024 Lipid Panel-[id number] 02/04/2024 Comp. Metabolic Panel [id number] 2023 Progress Notes * COLE VIVEROS MDOB:[birth year] (68 yo F)Acc No.[id number]:02/04/2024 Patient:?COLE VIVEROS :1955???Age:68 Y???Sex:Female Address:[address], [address] [place], [place] [address] Subjective: * Chief Complaints: * ???Fatty liver * Medical History:? * Surgical History:? * Hospitalization/Major Diagno stic Procedure:? * Medications:? Objective: * Vitals:? * Physical Examination:? Assessment: * Assessment: 1.?Other obesity due to exce ss calories - E66.09???2.?Fatty (change of) liver, not elsewhere classified - K76.0??? Plan: * Treatment: 2.?Fatty (change of) liver, not elsewhere classified?LAB: Albumin/Creatinine Ratio,Urine-[id number] ?LAB: Lipid Panel-[id number] ?LAB: Comp. Metabolic Panel [id number] * Procedure Codes:? * true * Date:? Generated for Filemon quesada/Tatyana/Deboraitting on:?08/01/2024 07:02 AM EDT
--- OUTSIDE RECORDS SUMMARY | 2024-08-01 07:02 | XMS_ITS | Clinical Summary ---
Author Organization [facility] Address [address] [place] [address] Care Team Providers Care Chalk Extruding Machine Operator Name Role Phone Daxa Harrison MD Primary Care Provider [phone] Encounters Date Type Department Care Team Description 07/25/2024 Telephone [facility] [address] [place] [address] Clark Harrell MD Appointment from Last 3 Months Social History Tobacco Use Types Packs/Day Years Used Date Smoking Tobacco: Never Assessed Comments Unknown Sex and Gender Information Value Date Recorded Sex Assigned at Not on file Legal Sex Female 6:40 PM EST Gender Identity Not on file Sexual Orientation Not on file Plan of Treatment Health Maintenance Due Date Last Done Comments Hepatitis C Virus Screening 1955 DTaP/Tdap/Td Vaccines (1 - Tdap) 1973 Pneumococcal Vaccines 50+ (1 of 1 - PCV) 2004 Zoster (Shingles) Vaccine (1 of 2) 2004 COVID-19 Vaccine ( - season) 2023 RSV Vaccine 60 years and [...] complicated cyst No new suspicious ultrasound finding us Daxa Harrison MD IMG MAMMOGRAPHY ORDERABLES F inal Result from Last 3 Months or Most Recently Relevant to Health Maintenance Care Teams Chalk Extruding Machine Operator Relationship Specialty Start Date End Date Daxa Harrison MD PCP - General 05/28/18
--- OUTSIDE RECORDS SUMMARY | 2024-08-01 07:02 | XMS_ITS | Continuity of Care Document ---
Author Organization [facility] [address] [facility] [address] [place] [address] Phone [phone] Care Team Providers Care Print Developer Automatic Name Role Phone Anaid Chakraborty Care Team Information Wind Turbine Electrical Engineer [phone] Problems Active Problems Provider Date Hypercholesterolemia Shahid [...] SIG Qnty Indications Ordering Provider Date Amlodipine Jzizjopa9iy Tablets Take 1 Tablet By Mouth Every Day Eric Saavedra MD Carvedilol3.125mg Tablets Take 1 Tablet By Mouth Twice A Day Must Take With Meal Food Eric Saavedra MD Atorvastatin Eznpjui12xb Tablets Take 1 Tablet By Mouth Everyday AT Bedtime Eric Saavedra MD Sdpwhunqk91tg Tablets Take One Tablet By Mouth Every Day Eric Saavedra MD Vital Signs Date Vital Result Comment 05/17/2022 9:11am BP Systolic 140 mmHg BP Diastolic 90 mmHg Heart Rate 72 /min Height 64 inches 5'4 Weight 174.00 lb BMI (Body Mass Index) 29.9 kg/m2 Results Test Acquired Date Facility Test Result H/L Range N ote Free T4 05/17/2022 [facility] Free T4 1.03 ng/dL (0.70-1.80 ) TSH 05/17/2022 [facility] TSH 2.00 uIU/mL (0.4-4.2) Prolactin 05/17/2022 [facility] Prolactin 8.4 NG/ML (4.8-23.3) Testosterone, Total 05/17/2022 [facility] Testosterone, Total 24 1 Dhea Sulfate 05/17/2022 [facility] Dhea Sulfate 139.0 g /dL (9-246) FSH 05/17/2022 [facility] FSH 92.1 MIU/ML 2 LH 05/17/2022 [facility] LH 56.6 MIU/ML 3 1 Unit: ng/dL (NOTE) This test was developed and its performance characteristics determined by [facility]. It has not been cleared or approved by the Food and Drug Administration. Reference Range: Adult Females Premenopausal 10 - 55 Postmenopausal 7 - 40 Test performed by [facility], [address] [place] [address] 2 Reference Range: Follicular: 3.5-12.5 mIU/mL Ovulation: [...]
--- OUTSIDE RECORDS SUMMARY | 2024-08-01 07:02 | XMS_ITS | Clinical Summary ---
Author Organization [facility] Address [address] [place] [address] Care Team Providers Care Superintendent Overhead Distribution Name Role Phone Boo Ochoa MD Primary Care Provider [phone] Allergies No known active allergies Medications Medication [...] age to complete this topic Care Teams Superintendent Overhead Distribution Relationship Specialty Start Date End Date Boo Ochoa MD [address] [place] [address] PCP - General Internal Medicine 08/27/19
--- OUTSIDE RECORDS SUMMARY | 2024-08-01 07:02 | XMS_ITS ---
Author Organization [facility] Address [address] [facility] [address] [place] [address] Care Team Providers Care Medical Office Technology Instructor Name Role Phone JHONY DELGADO Primary Care Provider REASON FOR VISIT Medical record request Encounters Encounter Location Date Provider Diagnosis [facility] [address] [facility] [address] [place] [address] 01/24/2024 JHONY DELGADO Plan Of Treatment No Information Progress Notes * COLE VIVREOS MDOB:[birth year] (68 yo F)Acc No.[id number]:01/24/2024 Patient:?COLE VIVEROS :1955???Age:68 Y???Sex:Female Address:[address], [address] [place] [place] [place] [address] * true * Date:? Generated for Filemon quesada/Tatyana/eTransmitting on:?08/01/2024 07:02 AM EDT
--- OUTSIDE RECORDS SUMMARY | 2024-08-01 07:02 | XMS_ITS | Patient Health Record ---
Author Organization [facility] Address [address] [place] [address] Care Team Providers Care Cafeteria Server Name Role Phone JHONY DELGADO Primary Care Provider Allergies Allergen (clinical drug ingredient) Drug/Non Drug Allergy documented on EMR Reaction Allergy Type Onset Date Status Substance with 2-utlnksc-5-methylgluta ryl-coenzyme A reductase inhibitor mechanism of action [...] Notes Problem Obesity due to excess calories (563741502) Other obesity due to excess calories (E66.09) Active confirmed Problem Mixed hyperlipidemia (926328798) Mixed hyperlipidemia (E78.2) Active confirmed Problem Fatty (change of ) liver, not elsewhere classified (K76.0) Active confirmed Problem Essential hypertension (85184507) Essential (primary) hypertension (I10) Active confirmed Encounters Encounter Location Date Provider Diagnosis [facility] [address] [facility] [address] [place] [address] 01/24/2024 JHONY DELGADO [facility] [address] [facility] [address] [place] [address] 02/04/2024 JHONY DELGADO Other obesity due to [...] Name Order Date LIPID PANEL 03/05/2023 Albumin/Creatinine Ratio,Urine-[id number] TSH+Free [id number] 02/04/2024 Lipid Panel-[id number] 02/04/2024 Comp. Metabolic Panel [id number] 2023 Future Test Test Name Order Date 25OH VITAMIN D 01/31/2023 COMPREHENSIVE METABOLIC PANEL 01/31/2023 MICROALBUMIN, URINE 01/31/2023 TSH 01/31/2023 Insurance Providers Payer Name Payer Address Payer Phone Subscriber Number Group Number Insured Name Patient Relationship to Insured Coverage Start Date Coverage End Date [employer] [address] [address] [place] [address] [id number] COLE VIVEROS Self - patient is the insured Medical (General) History Medical History History ICD Code hypertension, benign hyperlipidemia Headaches Abdominal LUQ PAIN SEE Dr Jordan Surgical History Surgery Date(Month/Year) Tuboplasty
--- OUTSIDE RECORDS SUMMARY | 2024-08-01 07:02 | XMS_ITS | Clinical Summary ---
Author Organization [facility] Address [address] [place] [address] Care Team Providers Care Online Marketing Director Name Role Phone Boo Ochoa MD Primary Care Provider [phone] Medical History Medical History Date Comments Cancer [...] age to complete this topic Care Teams Online Marketing Director Relationship Specialty Start Date End Date Boo Ochoa MD [address] [place] [address] PCP - General Internal Medicine 08/27/19
[2024-08-01 07:43] LABS: Anion Gap 14 (12-20); Blood Urea Nitrogen 16 mg/dL (9-16); Calcium 9.5 mg/dL (8.4-10.2); Carbon Dioxide 27 mmol/L (22-29); Chloride 104 mmol/L (96-108); Cholesterol 231 mg/dL (<200); Estimated Glomerular Filt Rate 50; Glucose Random 109 mg/dL (60-115); HDL Cholesterol 41 mg/dL (>40); LDL Cholesterol Calculated 162 mg/dL (<100); Potassium 4.6 mmol/L (3.3-5.1); Sodium 140 mmol/L (135-145); Triglycerides 143 mg/dL (<150)
== END 2024-08-01 06:59 | disposition home or self-care (01) ==
LOC: HO.LAB 06:58
PROVIDERS: Visit Provider Internal Medicine Cardiovascular Disease
DX: I10 Essential (primary) hypertension (principal); E78.5 Hyperlipidemia, unspecified
CPT/HCPCS: 36415; 80048; 80061

== ENCOUNTER 2024-12-26 15:00 | Emergency (ER) | payer MEDICARE, SELFPAY ==
--- NOTE | ~2024-12-26 | US_ITS ---
EXAMINATION: US TRIPLEX UPPER EXTREMITY, LEFT CLINICAL INFORMATION: Left upper extremity pain, COMPARISON: None available. TECHNIQUE: Color-flow triplex imaging with spectral analysis and compression Doppler was performed on the left upper extremity. FINDINGS: The left internal jugular, subclavian, and axillary veins are patent and free of thrombus. The imaged segment of the left brachiocephalic vein is patent. Spectral doppler waveforms are normal. The brachial, basilic, cephalic, radial, and ulnar veins are patent and compressible. In the region of palpable lump in the forearm, there is a 10 x 5 x 9 mm circumscribed mass in the subcutaneous soft tissues without blood flow on color Doppler. US/US venous duplex UE LT IMPRESSION: No evidence of deep venous thrombosis involving the left upper extremity. Left forearm mass measuring 10 x 5 x 9 mm. Ultrasound is nonspecific but it could represent a lipoma. Electronically signed by: Fermin House MD 12/26/2024 04:26 PM EDT
[2024-12-26 15:12] VITALS: BP 160/74; PULSE 67; RESP 18; TEMP 36.3; O2SAT 96; BMI 30.6
--- NOTE | 2024-12-26 15:20 | ED_ITS ---
HPI - General Adult General Chief complaint: Extremity Problem Stated complaint: wants xray to r/o bloodclot in forearm Time Seen by Provider: 12/26/24 17:35 Source: patient and RN notes reviewed Limitations: no limitations History of Present Illness HPI narrative: 69-year-old female presents for evaluation of a ?bruise? and swollen area to her left forearm. Patient states she was applying lotion and noted this area. She is unsure as to when this may occurred. She denies any trauma. No paresthesias or paralysis. She is right-hand dominant. She is not on anticoagulants. She denies any pain to this area. No history of similar. No insect bites. Related Data Previous Rx's ?Medication ?Instructions ?Recorded amlodipine 5 mg tablet 5 mg PO DAILY #60 tabs 03/30 ezetimibe 10 mg tablet (Zetia) 10 mg PO DAILY #30 tabs 08/10/23 Allergies Allergy/AdvReac Type Severity Reaction Status Date / Time atorvastatin Allergy Intermediate Rash Verified 12/26/24 15:15 red yeast rice Allergy Rash Verified 12/26/24 15:15 Review of Systems 2 Review of Systems: Yes all other systems are reviewed and are negative Cardiovascular: Cardiovascular: Denies chest pain Respiratory: Respiratory: Denies cough Gastrointestinal: Gastrointestinal: Denies abdominal pain PMFSH Past Medical History Medical History Essential hypertension Hyperlipidemia No significant past medical history Surgical History Biliary colic History of post-sterilization tuboplasty History of arthroplasty of right shoulder Family History Family History Maternal Aunt Breast CA Brother Stroke Mother Stroke Rheumatoid arthritis Social History Social History Household Members: None Housing: House Alcohol intake: current Alcohol intake frequency: holidays/special occasions only Patient Tobacco Use Status: Never used Tobacco Advance Directives: No Advance Directives Information Provided: No Current occupational status: employed and retired 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 Sexual orientation: Straight/Heterosexual Gender identity: Female Physical Exam ED Vital Signs: Vital Signs - 24 hr 12/26/24 15:12 12/26/24 17:31 12/26/24 18:28 Temperature 97.3 F 98.2 F Pulse Rate 67 62 62 Respiratory Rate 18 18 18 Blood Pressure 160/74 H 157/75 H 157/75 H Pulse Oximetry 96 97 97 Oxygen Delivery Method Room Air Room Air Room Air BMI result Body Mass Index 30.6 Const General: alert and awake Resp Auscultation: clear to auscultation bilaterally Cardio Rate: regular rate Rhythm: regular rhythm Skin Other: Them quarter-size area of fading ecchymosis, yellowish in nature to the proximal left forearm. No tenderness. There is a subtle, firm, somewhat mobile lesion underneath the area of ecchymosis. It is nontender. No streaking or discharge Extrem Other: Accounting Representative is 5/5 bilaterally. Full range of motion of all upper extremities. Capillary refills less than 2 seconds. Radial pulses are +2 and equal bilaterally. Course Course Course Narrative: RME, this is a rapid medical exam performed by Claudio Cm please refer to primary provider for complete H&P- 69-year-old female presents for evaluation of the atraumatic lump to her left forearm. She has a small area of ecchymosis around it. She is concerned for DVT. Plan for ultrasound, basic labs. We will also add a Lyme test Procedures Ultrasound ED POC Ultrasound: Emergency ultrasound, limited skin and soft tissue This study reveals: Impression: Soft tissue lesion consistent with lipoma or cyst. Indication: Pain, swelling Performed by Boo Irving PA-C December 26, 2024, 6:00 p.m. Medical Decision Making Medical Decision Making [facility] Narrative: 69-year-old female with ecchymosis of the left forearm and soft tissue lesion. Formal ultrasound does not reveal any evidence of DVT. Labs are reassuring. Bedside ultrasound localized to the soft tissue lesion, suspicious for lipoma versus cyst. No evidence of cellulitis or drainable abscess. Differential Diagnosis Differential Diagnoses: The differential diagnosis associated with the presentation includes DVT Sebaceous cyst Lipoma Contusion Lab Data [facility] Lab Attestation statement: I reviewed the patient's lab results. 12/26/24 15:37 12/26/24 15:37 Labs: Lab Results 12/26/24 Range/Units 15:37 WBC 9.1 (4.8-10.8) X10*3/uL RBC 4.76 (4.20-5.50) X10*6/uL Hgb 13.0 (12.0-16.0) g/dl Hct 38.8 (37.0-47.0) % MCV 81.5 (80.0-98.0) fL MCH 27.3 (27.0-33.0) pg MCHC 33.5 (31.0-35.0) g/dl RDW 13.9 (11.0-16.0) % Plt Count 342 (160-400) X10*3/uL MPV 9.7 (9.4-12.3) fL Immature Gran % (Auto) 0.3 (0.0-0.4) % Neut % (Auto) 41.4 L (45-73) % Lymph % (Auto) 43.8 H (20-40) % Caswell % (Auto) 7.7 (2-11) % Eos % (Auto) 5.5 H (0-4) % Baso % (Auto) 1.3 (0-2) % Lymph # (Auto) 4.0 (1.2-4.9) X10*3/uL Caswell # (Auto) 0.7 (0.1-1.2) X10*3/uL Eos # (Auto) 0.5 H (0.0-0.4) X10*3/uL Baso # (Auto) 0.1 (0.0-0.2) X10*3/uL Abs Immat Gran (auto) 0.03 (0.00-0.03) X10*3/uL Absolute Neuts (auto) 3.8 (2.0-8.3) x10*3/uL Absolute Nucleated RBC 0.000 (0.0-0.012) X10*3/uL Nucleated RBC % (auto) 0.0 (0.0-0.2) /100WBC Sodium 139 (135-145) mmol/L Potassium 4.5 (3.3-5.1) mmol/L Chloride 105 (96-108) mmol/L Carbon Dioxide 28 (22-29) mmol/L Anion Gap 11 L (12-20) BUN 14 (9-16) mg/dL Creatinine 1.19 (0.5-1.4) mg/dL Estim Creat Clear Calc 43.6 Estimated GFR 45 Random Glucose 91 (60-115) mg/dL Calcium 9.8 (8.4-10.2) mg/dL Radiology Impression Discussion of test interpretation with radiology: I have reviewed the radiologist's reading. Radiologist Impression: [address] [address] Ultrasound Report Signed Patient: Joan Oliver MR#: [id number] : 1955 Acct:[id number] Age/Sex: 69 / F ADM Date: 12/26/24 Loc: HO.ED Attending Dr: Ordering Physician: Dav Cm Date of Service: 12/26/24 Procedure(s): US venous duplex UE LT Accession Number(s): [id number] cc: Dav Cm; Physician,Unknown ~ Reason for Exam: pain EXAMINATION: US TRIPLEX UPPER EXTREMITY, LEFT CLINICAL INFORMATION: Left upper extremity pain, COMPARISON: None available. TECHNIQUE: Color-flow triplex imaging with spectral analysis and compression Doppler was performed on the left upper extremity. FINDINGS: The left internal jugular, subclavian, and axillary veins are patent and free of thrombus. The imaged segment of the left brachiocephalic vein is patent. Spectral doppler waveforms are normal. The brachial, basilic, cephalic, radial, and ulnar veins are patent and compressible. In the region of palpable lump in the forearm, there is a 10 x 5 x 9 mm circumscribed mass in the subcutaneous soft tissues without blood flow on color Doppler. US/US venous duplex UE LT IMPRESSION: No evidence of deep venous thrombosis involving the left upper extremity. Left forearm mass measuring 10 x 5 x 9 mm. Ultrasound is nonspecific but it could represent a lipoma. Electronically signed by: Fermin House MD 12/26/2024 04:26 PM EDT Dictated By: Fermin House MD Signed By: <Electronically signed by Fermin House MD in OV> 12/26/24 1626 DD/ 1554 TD/TT: 12/26/24 1608 Bed Maker: Discharge Plan Discharge Clinical Impression: Mass of soft tissue, Lipoma of arm Patient Disposition: Home, Self-Care Instructions: Lipoma (ED), Soft Tissue Mass (ED) Additional Instructions: There appears to be a small mass undo skin of the left arm around the area of bruising. This could be a cyst or a fatty deposit. This can be further evaluated by a surgeon. Surgical referral has been provided. Watch for any worsening of symptoms, severe pain, swelling, redness, discharge or any other concern return immediately to the emergency department. Follow-up with your primary care provider. Call this week to schedule a follow- up appointment. Return to the emergency department if you have any worsening of symptoms, or any concerns. Get well soon! Prescriptions: No Action amlodipine 5 mg tablet 5 mg PO DAILY Qty: 60 5RF ezetimibe [Zetia] 10 mg tablet 10 mg PO DAILY Qty: 30 2RF Referrals: Macho Herrera MD [Physician, General Surgery] Interventions: ED Discharge Assessment Last Done: 12/26/24 18:28 Discharge Date/Time: 12/26/24 18:28 Print Language: Other
[2024-12-26 15:50] LABS: MANUAL DIFF FLAG NO
[2024-12-26 15:51] LABS: Hematocrit 38.8 % (37.0-47.0); Hemoglobin 13.0 g/dl (12.0-16.0); Imm Gran Abs Auto 0.03 X10*3/uL (0.00-0.03); Imm Gran Pct Auto 0.3 % (0.0-0.4); Lymphocytes Absolute Auto 4.0 X10*3/uL (1.2-4.9); Mean Corpuscular HGB Conc 33.5 g/dl (31.0-35.0); Mean Corpuscular Hemoglobin 27.3 pg (27.0-33.0); Mean Corpuscular Volume 81.5 fL (80.0-98.0); NRBC Abs Auto 0.000 X10*3/uL (0.0-0.012); NRBC Pct Auto 0.0 /100WBC (0.0-0.2); Platelet Count 342 X10*3/uL (160-400); Red Blood Count 4.76 X10*6/uL (4.20-5.50); White Blood Count 9.1 X10*3/uL (4.8-10.8)
[2024-12-26 16:05] LABS: Anion Gap 11 (12-20); Blood Urea Nitrogen 14 mg/dL (9-16); Calcium 9.8 mg/dL (8.4-10.2); Carbon Dioxide 28 mmol/L (22-29); Chloride 105 mmol/L (96-108); Creatinine Clr Calc Pharmacy 43.6; Estimated Glomerular Filt Rate 45; Potassium 4.5 mmol/L (3.3-5.1); Sodium 139 mmol/L (135-145)
--- OUTSIDE RECORDS SUMMARY | 2024-12-26 17:22 | XMS_ITS | Continuity of Care Document ---
Author Organization [facility] [address] [facility] [address] [place] [address] Phone [phone] Care Team Providers Care Medicare Sales Executive Name Role Phone Anaid Chakraborty Care Team Information Pickle Cutter [phone] Problems Active Problems Provider Date Hypercholesterolemia Shahid Acuña M.D. Ons et: 05/17/2022 Essential hypertension Shahid Acuña M.D. O nset: 05/17/2022 Hyperlipidemia Shahid Acuña M.D. Onset: 0 05/17/2022 Social History Type Date Description Comments Sex Female Sex Unknown Tobacco Use Start: Unknown Never Smoked Cigarettes ETOH Use Rarely consumes alcohol Allergies and adverse reactions Description No Known Drug Allergies Medications Active Medications SIG Qnty Indications Ordering Provider Date Amlodipine Iqdztueg7yu Tablets Take 1 Tablet By Mouth Every Day Eric Saavedra MD Carvedilol3.125mg Tablets Take 1 Tablet By Mouth Twice A Day Must Take With Meal Food Erci Saavedra MD Atorvastatin Mbrbidh12fr Tablets Take 1 Tablet By Mouth Everyday AT Bedtime Eric Saavedra MD Dqsonyugq43cx Tablets Take One Tablet By Mouth Every Day Eric Saavedra MD Vital Signs Date Vital Result Comment 05/17/2022 9:11am BP Systolic 140 mmHg BP Diastolic 90 mmHg Heart Rate 72 /min Height 64 inches 5'4 Weight 174.00 lb BMI (Body Mass Index) 29.9 kg/m2 Results Test Acquired Date Facility Test Result H/L Range N ote Free T4 05/17/2022 [facility] Free T4 1.03 ng/dL (0.70-1.80 ) TSH 05/17/2022 [facility] TSH 2.00 uIU/mL (0.4-4.2) Prolactin 05/17/2022 [facility] Prolactin 8.4 NG/ML (4.8-23.3) Testosterone, Total 05/17/2022 [facility] Testosterone, Total 24 1 Dhea Sulfate 05/17/2022 [facility] Dhea Sulfate 139.0 g/dL (9-246) FSH 05/17/2022 [facility] FSH 92.1 MIU/ML 2 LH 05/17/2022 [facility] LH 56.6 MIU/ML 3 1 Unit: ng/dL (NOTE) This test was developed and its performance characteristics determined by [facility]. It has not been cleared or approved by the Food and Drug Administration. Reference Range: Adult Females Premenopausal 10 - 55 Postmenopausal 7 - 40 Test performed by [facility] [address] [place] [address] Reference Range: Follicular: 3.5-12.5 mIU/mL Ovulation: [...]
--- OUTSIDE RECORDS SUMMARY | 2024-12-26 17:22 | XMS_ITS | Encounter Summary ---
Author Organization [facility] Address [address] [facility] [address] [place] [address] Phone Care Team Providers Care Optical Sales Associate Name Role Phone Anaid Chakraborty MD Primary Care Provider Encounter Details Date Type Department Care Team ([facility] st Contact Info) Description 08/29/2023 Telephone [facility] [address] [place] [address] Yan Almonte PA-C [address] [place] [address] [email or web address] Social History Tobacco Use Types Packs/Day Years Used Date Smoking Tobacco: Never Assessed Education Answer Date Recorded Are you interested in more education? Not on kaye e 07/29/2022 Are you concerned about learning? Not on file 07/29/2022 No 07/29/2022 No 07/29/2022 Digital Access Answer Date Recorded No 08/25/2022 No 08/25/2022 No 08/25/2022 Reliable internet access at home? Not on file 08/25/2022 Device with a working camera? Not on file Comments Unknown Sex and Gender Information Value Date Recorded Sex Assigned at Choose not to disclose 07/2021 3:40 PM EDT Legal Sex Female 3:38 PM EDT Gender Identity Choose not to disclose 3:40 PM EDT Sexual Orientation Choose not to disclose 2021 3:40 PM EDT documented as of this encounter Plan of Treatment Not on file documented as of this encounter Visit Diagnoses Not on filedocumented in this encounter Care Teams Optical Sales Associate Relationship Specialty Start Date End Date Anaid Chakraborty MD [address] [place] [address] Dr Kelly, SARAH [address] PCP - General Internal Medicine 10/04/21 documented as of this encounter Additional Source Comments The information contained in this document represents components of the legal health record. It is not the complete legal health record.[facility]
--- OUTSIDE RECORDS SUMMARY | 2024-12-26 17:22 | XMS_ITS | Clinical Summary ---
Author Organization [facility] Address [address] [place] [address] Care Team Providers Care Pattern Data Operator Name Role Phone Boo Ochoa MD Primary Care Provider [phone] Medical History Medical History Date Comments Cancer [...] 2004 Zoster Vaccines (1 of 2) 2004 Depression Screening 04/02/2024 COVID-19 Vaccine (1 - 2023-2 5 season) 2024 Influenza Vaccine (#1) 2024 RSV Immunization Adult Patie nts (1 [...] age to complete this topic Care Teams Pattern Data Operator Relationship Specialty Start Date End Date Boo Ochoa MD [address] [place] [address] PCP - General Internal Medicine 08/27/19
--- OUTSIDE RECORDS SUMMARY | 2024-12-26 17:22 | XMS_ITS | Patient Health Record ---
Author Organization [facility] Address [address] [place] [address] Care Team Providers Care Shop Director Name Role Phone JHONY DELGADO Primary Care Provider [phone] Allergies Allergen (clinical drug ingredient) Drug/Non Drug Allergy documented on EMR Reaction Allergy Type Onset Date Status Substance with 9-nybwcka-6-methylgluta ryl-coenzyme A reductase inhibitor mechanism of action [...] Notes Problem Obesity due to excess calories (815159726) Other obesity due to excess calories (E66.09) Active confirmed Problem Mixed hyperlipidemia (743903657) Mixed hyperlipidemia (E78.2) Active confirmed Problem Fatty liver (941856938) Fatty (change of) liver, not elsewhere classified (K76.0) Active confirmed Problem Essential hypertension (27513209) Essential (primary) hypertension (I10) Active confirmed Encounters Encounter Location Date Provider Diagnosis [facility] [address] [facility] [address] [place] [address] 01/24/2024 JHONY DELGADO [facility] [address] [facility] [address] [place] [address] 02/04/2024 JHONY DELGADO Other obesity due to [...] Name Order Date LIPID PANEL 03/05/2023 Albumin/Creatinine Ratio,Urine-[id number] TSH+Free [id number] 02/04/2024 Lipid Panel-[id number] 02/04/2024 Comp. Metabolic Panel [id number] 2023 Future Test Test Name Order Date 25OH VITAMIN D 01/31/2023 COMPREHENSIVE METABOLIC PANEL 01/31/2023 MICROALBUMIN, URINE 01/31/2023 TSH 01/31/2023 Insurance Providers Payer Name Payer Address Payer Phone Subscriber Number Group Number Insured Name Patient Relationship to Insured Coverage Start Date Coverage End Date [employer] [address] [address] [place] [address] [id number] COLE VIVEROS Self - patient is the insured Medical (General) History Medical History History ICD Code hypertension, benign hyperlipidemia Headaches Abdominal LUQ PAIN SEE Dr Jordan Surgical History Surgery Date(Month/Year) Tuboplasty
--- OUTSIDE RECORDS SUMMARY | 2024-12-26 17:22 | XMS_ITS | Clinical Summary ---
Author Organization [facility] Address [address] [place] [address] Care Team Providers Care Application Specialist Name Role Phone Boo Ochoa MD Primary Care Provider [phone] Allergies No known active allergies Medications Medication [...] 94 08/07/2019 1:01 PM EDT Temperature 36.7 C (98.1 F) 08/07/2019 1:01 PM EDT Respiratory Rate 18 09/26/2018 1:21 PM EDT [...] 1 - PCV) 11/04/2019 Influenza Vaccine (#1) 2024 RSV Adult > 60+ Yrs or Pregn ant (1 - 1-dose 75+ series) 2029 Hepatitis B Vaccines Aged Out No long er eligible based on patient's age to complete this topic RSV Ped < 20 months Aged Out No longe r eligible based on patient's age to complete this topic Care Teams Application Specialist Relationship Specialty Start Date End Date Boo Ochoa MD [address] [place] [address] PCP - General Internal Medicine 08/27/19
--- OUTSIDE RECORDS SUMMARY | 2024-12-26 17:22 | XMS_ITS | Clinical Summary ---
Author Organization [facility] Address [address] [place] [address] Care Team Providers Care Bomb Loader Name Role Phone Daxa Harrison MD Primary Care Provider Social History Tobacco Use Types Packs/Day Years Used Date Smoking Tobacco: Never Assessed Comments Unknown Sex and Gender Information Value Date Recorded Sex Assigned at Not on file Legal Sex Female 6:40 PM EST Gender Identity Not on file Sexual Orientation Not on file Plan of Treatment Upcoming Encounters Date Type Department Care Team (Late st Contact Info) Description 02/16/2025 10:30 AM EST Consult [facility] [address] [facility] [address] [place] [phone] Jacque Garza PA-C [address] [place] [address] Health Maintenance Due Date Last Done Comments Advance Care Planning 1955 Hepatitis C Virus Screening 1955 DTaP/Tdap/Td Vaccines (1 - Tdap) 1973 Colonoscopy 11/04/1999 Pneumococcal Vaccines 50+ (1 of 1 - PCV) 2004 Zoster (Shingles) Vaccine (1 of 2) 2004 DXA Bone Density (Females,Ages 65 and older) 11/04/2019 Mammogram 04/09/2021 04/09/2019, 05/28/2018 Influenza Vaccine 10/31/2024 COVID-19 Vaccine ( - 2023-2 5 season) 2024 RSV Vaccine 60 years and older and Patients (1 - 1-dose 75+ series) 2029 Hepatitis [...] ultrasound finding Daxa Harrison MD IMG MAMMOGRAPHY ORDERABLES F inal Result from Last 3 Months or Most Recently Relevant to Health Maintenance Insurance [phone] [place] [id number] Care Teams Bomb Loader Relationship Specialty Start Date End Date Daxa Harrison MD PCP - General 05/28/18
--- OUTSIDE RECORDS SUMMARY | 2024-12-26 17:22 | XMS_ITS | Patient Health Record ---
Author Organization [facility] Address [address] [place] [address] Care Team Providers Care Cloth Washer Back Tender Name Role Phone JHONY DELGADO Primary Care Provider Julien Johnson Jr [phone] Allergies No Known Allergies Results Component Value Reference Range Notes Complete Blood Count no Diff Reviewed date:01/24/2024 07:43:21 AM Interpretation: Performing Lab:[facility], [address] [place] [address] Notes/Report: White Blood Count 8.9 4.8-10.8 X10*3/uL [...] Panel Reviewed date:01/24/2024 07:43:35 AM Interpretation: Performing Lab:[facility], [address] [place] [address] Notes/Report: Bilirubin Total 0.5 0.0-1.0 mg/dL Bilirubin Direct 0.2 0.0-0.5 mg/dL Aspartate Amino Transferase 26 5-31 U/L Alanine Aminotransferase 21 0-31 U/L Total Protein 7.0 6.5-8.0 g/dL Albumin Level 3.8 3.5-5.0 g/dL Alkaline Phosphatase 87 39-117 U/L Lipase Reviewed date:01/24/2024 07:43:47 AM Interpretation: Performing Lab:[facility], [address] [place] [phone] Notes/Report: Lipase 43 8-78 U/L US abdomen complete Reviewed date:02/14/2024 08:35:33 AM Interpretation: Performing Lab: Notes/Report: [address] [address] Ultrasound Report Signed Patient: Joan Viveros MR#: [id number] 4 : 1955 Acct:[id number] Age/Sex: 68 / F ADM Date: 01/23/24 Loc: HO.US Attending Dr: Julien Jordan MD Ordering Physician: Julien Jordan MD Date of Service: 01/23/24 Procedure(s): US abdomen complete Accession Number(s): [id number] cc: Julien Jordan MD; Leandro Delgado MD [...] by: Agusto Egan MD 02/13/2024 10:39 AM [facility] Dictated By: Agusto Egan MD Signed By: <Electronically signed by Agusto Egan MD in OV> 02/13/24 1039 DD/ TD/TT: 01/23/24 0952 Esthetician Makeup Artist: Blood Urea Nitrogen Reviewed date:03/03/2024 04:20:51 PM Interpretation: Performing Lab:[address] [address] Notes/Report: Blood Urea Nitrogen 14 9-16 mg/dL Creatinine Reviewed date:03/03/2024 04:20:45 PM Interpretation: Performing Lab:[facility], [address] [place] [address] Notes/Report: Creatinine 1.41 0.5-1.4 mg/dL Estimated Glomerular Filt Rate 37 Chronic Kidney Disease: Estimated GFR < 60 mL/min/1.73m2 Severe Kidney Disease: Estimated GFR < 15 mL/min/1.73m2 Complete Blood Count no Diff Reviewed date:03/06/2024 09:17:57 AM Interpretation: Performing Lab:[facility], [address] [place] [phone] Notes/Report: White Blood Count 9.9 4.8-10.8 X10*3/uL [...] Panel Reviewed date:03/06/2024 09:17:50 AM Interpretation: Performing Lab:[address] [address] Notes/Report: Bilirubin Total 0.3 0.0-1.0 mg/dL Bilirubin Direct 0.1 0.0-0.5 mg/dL Aspartate Amino Transferase 28 5-31 U/L Alanine Aminotransferase 22 0-31 U/L Total Protein 6.9 6.5-8.0 g/dL Albumin Level 3.8 3.5-5.0 g/dL Alkaline Phosphatase 80 39-117 U/L Lipase Reviewed date:03/06/2024 09:17:44 AM Interpretation: Performing Lab:[address] [address] Notes/Report: Lipase 35 8-78 U/L CT abdomen pelvis w con Reviewed date:03/06/2024 09:18:01 AM Interpretation: Performing Lab: Notes/Report: [address] [address] [address] Scan Report Signed Patient: Joan Viveros MR#: [id number] 4 : 1955 Acct:[id number] Age/Sex: 68 / F ADM Date: 03/05/24 Loc: HO.CT Attending Dr: Julien Jordan MD Ordering Physician: Julien Jordan MD Date of Service: 03/05/24 Procedure(s): CT abdomen pelvis w IV con Accession Number(s): [id number] cc: Julien Jordan MD EXAMINATION: CT ABDOMEN [...] 03/05/24 2148 DD/ 1305 TD/TT: 03/05/24 1314 Esthetician Makeup Artist: Reason For Referral No Information Medications Medication [...] Problem Status W/U Status Risk Notes Problem 233825929 Bloating (R14.0) Active confirmed Problem 97414036 Weight loss (R63.4) Active confirmed Problem 075493484 Right upper quadrant pain (R10.11) Active confirmed Problem 506481135 Generalized abdominal pain (R10.84) Active confirmed Problem 919415077 Fatty liver (K76.0) Active confirmed Problem 544732240 Elevated lipase (R74.8) Active confirmed Problem 239026114 RUQ pain (R10.11) Active confirmed Problem 282036448 Right sided abdominal pain (R10.9) Active confirmed Vital Signs Temperature 97.5 degrees Fahrenheit 01/16/2024 Blood pressure diastolic 00 mm Hg 01/16/2024 Height 65 in 01/16/2024 Blood pressure systolic 000 mm Hg 01/16/2024 Weight 165 lb 2 oz lbs 01/16/2024 BMI 27.48 kg/m2 01/16/2024 Encounters Encounter Location Date Provider Diagnosis [facility] [address] [place] [address] 01/16/2024 Julien Jordan Jr Right upper quadrant pain R10.11 and Fatty liver K76.0 [facility] [address] [place] [address] 01/24/2024 Julien Jordan Jr [facility] [address] [place] [address] 02/08/2024 Julien Jodran Jr [facility] [address] [place] [address] 02/14/2024 Julien Jordan Jr [facility] [address] [place], [place] [address] 02/19/2024 Julien Jordan Jr Right sided abdominal pain R10.9 [facility] [address] [place] [address] 03/03/2024 Julien Jordan Jr [facility] [address] [place] [address] 03/06/2024 Julien Jordan Jr Assessments Encounter Date [...] Test Test Name Order Date BUN 02/19/2024 BUN 02/08/2023 CREATININE 02/08/2023 CREATININE 02/19/2024 LIVER PROFILE 03/19/2020 LIVER PROFILE 01/15/2023 LIVER PROFILE 02/19/2024 LIVER PROFILE 10/11/2020 LIVER PROFILE 01/16/2024 LIPASE 02/19/2024 LIPASE 10/11/2020 LIPASE 01/16/2024 LIPASE 03/19/2020 LIPASE 01/15/2023 CBC w DIFF 10/11/2020 CBC w/o DIFF 02/19/2024 CBC w/o DIFF 01/16/2024 CBC w/o DIFF 03/19/2020 CBC w/o DIFF 01/15/2023 CT ABD & PELVIS WITH CONTRAST 02/19/2024 CT ABD & PELVIS WITH CONTRAST 02/07/2023 US ABD 10/11/2020 US ABD 01/16/2024 HIDA SCAN GB WITH CCK 02/27/2022 Liver Fibrosis Pnl 01/15/2023 Future Test Test Name Order Date UPPER GI ENDOSCOPY 03/19/2020 COLONOSCOPY 03/19/2020 Next Appt Details Provider Name:Julien Que lee , 01/14/2025 10:20:00 AM, [address] [place] [address], [address], [place], [address], Insurance Providers Payer Name Payer Address Payer Phone Subscriber Number Group Number Insured Name Patient Relationship to Insured Coverage Start Date Coverage End Date [facility] [address] [address] [place] [address] [id number] JOAN VIVEROS Self - patient is the insured 0 Medical (General) History Medical History History ICD Code Erosive gastritis, EGD 03/21, omeprazole x8 weeks, no BE or HP. Colonoscopy 03/21, tubular adenoma, five -year followup 03/26. Hypertension Included cholesterol Surgical History Surgery Date(Month/Year) right shoulder arthroplasty 1986
--- OUTSIDE RECORDS SUMMARY | 2024-12-26 17:22 | XMS_ITS | Clinical Summary ---
Author Organization [facility] Address [address] [place] [address] Phone Care Team Providers Care Wheel Lacer And Truer Name Role Phone Anaid Chakraborty MD Primary Care Provider Social History Tobacco [...] not to disclose 2021 3:40 PM EDT Plan of Treatment Health Maintenance Due Date Last Done Comments Adult Td,Tdap Booster 1955 LIPID PANEL 1955 DEPRESSION SCREENING 1966 SMOKING Hx and SMOKELESS TOBACCO SCREENING 11/04/1967 HEPATITIS C SCREENING 1972 COLOGUARD 11/04/1999 COLONOSCOPY 11/04/1999 COLORECTAL CANCER SCREENING 11/04/1999 FIT TEST 11/04/1999 FOBT 11/04/1999 SIGMOIDOSCOPY 11/04/1999 VIRTUAL COLONOSCOPY 11/04/1999 PNEUMOCOCCAL VACCINES (50+ years) (1 of 1 - PCV) 2004 ZOSTER VACCINES (1 of 2) 2004 OSTEOPOROSIS SCREENING INITI AL (ONE-TIME) 11/04/2019 MAMMOGRAM 04/09/2021 04/09/2019, 05/28/2018 INFLUENZA VACCINE (#1) 2024 COVID-19 VACCINE ( - 2023-2 5 season) 2024 RSV VACCINE (1 - 1-dose 75+ series) 2029 HEPATITIS A VACCINES Aged Out No long er eligible based on patient's age to complete this topic HIB VACCINES Aged Out No longer eligi ble based on patient's age to complete this topic MENINGOCOCCAL VACCINES (ACWY) Aged Out No longer eligible based on patient's age to complete this topic MENINGOCOCCAL VACCINES (B) Aged Out N o longer eligible based on patient's age to complete this topic Medical Devices Not on file Insurance MEDICARE PART A & B [facility] MEDICARE REPLACEMENT MEDICARE PART A & B Member Subscriber Plan / Payer (Ef fective 2019-Present) Name:Joan Oliver Member ID:[id number] Relation to Subscriber:Self Name:Joan Oliver Subscriber ID:[id number] Payer ID:[id number] Group ID:Not on file Type:Medicare Address: [employer] [address] MEDICARE REPLACEMENT MEDICARE PART A & B Member Subscriber Plan / Payer (Ef fective 2019-Present) Name:Joan Oliver Member ID:[id number] Relation to Subscriber:Self Name:Joan Oliver Subscriber ID:[id number] Payer ID:[id number] Group ID:Not on file Type:Medicare Address: [employer] [address] [place] [id number] [facility] MEDICARE REPLACEMENT MEDICARE PART A & B MEDICARE REPLACEMENT MEDICARE PART A & B MEDICARE REPLACEMENT MEDICARE PART A & B MEDICARE REPLACEMENT MEDICARE PART A & B MEDICARE REPLACEMENT MEDICARE PART A & B [facility] MEDICARE REPLACEMENT [place] [id number] MEDICARE PART A & B [facility] MEDICARE REPLACEMENT Care Teams Wheel Lacer And Truer Relationship Specialty Start Date End Date Aanid Chakraborty MD [address] [place] [address] [place] [address] PCP - General Internal Medicine 10/04/21 Additional Source Comments The information contained in this document represents components of the legal health record. It is not the complete legal health record.[facility]
[2024-12-26 17:31] VITALS: BP 157/75; PULSE 62; RESP 18; O2SAT 97
[2024-12-26 18:28] VITALS: BP 157/75; PULSE 62; RESP 18; TEMP 36.8; O2SAT 97
[2024-12-27 05:43] LABS: Lyme Abs Screen <0.90 index
== END 2024-12-26 18:28 | disposition home or self-care (01) ==
PROVIDERS: Physician Assistant; Emergency Provider Emergency Medicine Emergency Medical Services
DX: M79.89 Other specified soft tissue disorders (principal); D17.22 Benign lipomatous neoplasm of skin and subcutaneous tissue of left arm
CPT/HCPCS: 36415; 80048; 85025; 86617; 86618; 93971; 99283; 99284

== ENCOUNTER → 2024-12-26 15:19 | Outpatient (BNV) | payer MEDICARE, SELFPAY | PROVIDERS: Visit Provider Radiology Diagnostic Radiology | DX: R22.32 Localized swelling, mass and lump, left upper limb (principal) | CPT/HCPCS: 93971 ==

== ENCOUNTER 2025-01-26 14:18 | Outpatient (REF) | payer MEDICARE, SELFPAY ==
[2025-01-26 14:30] LABS: MANUAL DIFF FLAG NO
[2025-01-26 15:21] LABS: Hematocrit 41.1 % (37.0-47.0); Hemoglobin 13.4 g/dl (12.0-16.0); Imm Gran Abs Auto 0.02 X10*3/uL (0.00-0.03); Imm Gran Pct Auto 0.2 % (0.0-0.4); Lymphocytes Absolute Auto 3.6 X10*3/uL (1.2-4.9); Mean Corpuscular HGB Conc 32.6 g/dl (31.0-35.0); Mean Corpuscular Hemoglobin 27.6 pg (27.0-33.0); Mean Corpuscular Volume 84.7 fL (80.0-98.0); NRBC Abs Auto 0.000 X10*3/uL (0.0-0.012); NRBC Pct Auto 0.0 /100WBC (0.0-0.2); Platelet Count 347 X10*3/uL (160-400); Red Blood Count 4.85 X10*6/uL (4.20-5.50); White Blood Count 9.0 X10*3/uL (4.8-10.8)
[2025-01-26 15:59] LABS: HDL Cholesterol 40 mg/dL (>40)
[2025-01-26 16:00] LABS: Alanine Aminotransferase 21 U/L (0-31); Anion Gap 12 (12-20); Aspartate Amino Transferase 32 U/L (5-31); Blood Urea Nitrogen 16 mg/dL (9-16); Calcium 9.3 mg/dL (8.4-10.2); Carbon Dioxide 29 mmol/L (22-29); Chloride 106 mmol/L (96-108); Cholesterol 266 mg/dL (<200); Estimated Glomerular Filt Rate 46; HDL Cholesterol 38 mg/dL (>40); Potassium 4.5 mmol/L (3.3-5.1); Sodium 142 mmol/L (135-145); Triglycerides 275 mg/dL (<150)
[2025-01-26 16:04] LABS: NT Pro B Type Natriuretic Pept 157.2 pg/mL (<300)
--- OUTSIDE RECORDS SUMMARY | 2025-01-26 17:55 | XMS_ITS | Clinical Summary ---
Author Organization [facility] Address [address] [place] [address] Care Team Providers Care Ship Design Teacher Name Role Phone Boo Ochoa MD Primary Care Provider [phone] Allergies No known active allergies Medications Medication [...] age to complete this topic Care Teams Ship Design Teacher Relationship Specialty Start Date End Date Boo Ochoa MD [address] [place] [address] PCP - General Internal Medicine 08/27/19
--- OUTSIDE RECORDS SUMMARY | 2025-01-26 17:55 | XMS_ITS | Encounter Summary ---
Author Organization [facility] Address [address] [facility] [address] [place] [address] Phone Care Team Providers Care Pin Inserter Name Role Phone Anaid Chakraborty MD Primary Care Provider Encounter Details Date Type Department Care Team ([facility] st Contact Info) Description 08/29/2023 Telephone [facility] [address] [place] [address] Yan Almonte PA-C [address] [place] [address] [email or web address] Social History Tobacco Use Types Packs/Day Years [...] on filedocumented in this encounter Care Teams Pin Inserter Relationship Specialty Start Date End Date Anaid Chakraborty MD [address] [place] [address] Dr [place], SARAH [address] PCP - General Internal Medicine 10/04/21 documented as of this encounter Additional Source Comments The information contained in this document represents components of the legal health record. It is not the complete legal health record.[facility]
--- OUTSIDE RECORDS SUMMARY | 2025-01-26 17:55 | XMS_ITS | Continuity of Care Document ---
Author Organization [facility] [address] [facility] [address] [place] [address] Phone [phone] Care Team Providers Care Manufacturing Scheduler Name Role Phone Anaid Chakraborty Care Team Information Java Xml Developer [phone] Problems Active Problems Provider Date Hypercholesterolemia Shahid [...] SIG Qnty Indications Ordering Provider Date Amlodipine Nmjpsgye6qv Tablets Take 1 Tablet By Mouth Every Day Eric Saavedra MD Carvedilol3.125mg Tablets Take 1 Tablet By Mouth Twice A Day Must Take With Meal Food Eric Saavedra MD Atorvastatin Rargvdt45hk Tablets Take 1 Tablet By Mouth Everyday AT Bedtime Eric Saavedra MD Jvvpqnklx79xz Tablets Take One Tablet By Mouth Every Day Eric Saavedra MD Vital Signs Date Vital Result Comment 05/17/2022 9:11am BP Systolic 140 mmHg BP Diastolic 90 mmHg Heart Rate 72 /min Height 64 inches 5'4 Weight 174.00 lb BMI (Body Mass Index) 29.9 kg/m2 Results Test Acquired Date Facility Test Result H/L Range N ote Free T4 05/17/2022 [facility] Free T4 1.03 ng/dL (0.70-1.80 ) TSH 05/17/2022 [facility] TSH 2.00 uIU/mL (0.4-4.2) Prolactin 05/17/2022 [facility] Prolactin 8.4 NG/ML (4.8-23.3) Testosterone, Total 05/17/2022 [facility] Testosterone, Total 24 1 Dhea Sulfate 05/17/2022 [facility] Dhea Sulfate 139.0 g/dL (9-246) FSH 05/17/2022 [facility] FSH 92.1 MIU/ML 2 LH 05/17/2022 [facility] LH 56.6 MIU/ML 3 1 Unit: ng/dL (NOTE) This test was developed and its performance characteristics determined by [facility]. It has not been cleared or approved by the Food and Drug Administration. Reference Range: Adult Females Premenopausal 10 - 55 Postmenopausal 7 - 40 Test performed by [employer] [address] [place] [address] 2 Reference Range: Follicular: 3.5-12.5 mIU/mL Ovulation: [...]
--- OUTSIDE RECORDS SUMMARY | 2025-01-26 17:55 | XMS_ITS | Clinical Summary ---
Author Organization [facility] Address [address] [place] [address] Phone Care Team Providers Care Crib Pad Maker Name Role Phone Anaid Chakraborty MD Primary [...] file Insurance MEDICARE PART A & B [facility] MEDICARE REPLACEMENT MEDICARE PART A & B Member Subscriber Plan / Payer (Ef fective 2019-Present) Name:Joan Oliver Member ID:[id number] Relation to Subscriber:Self Name:Joan Oliver Subscriber ID:[id number] Payer ID:[id number] Group ID:Not on file Type:Medicare Address: [employer] [address] MEDICARE REPLACEMENT MEDICARE PART A & B Member Subscriber Plan / Payer (Ef fective 2019-Present) Name:Joan Oliver Member ID:[id number] Relation to Subscriber:Self Name:Joan Oliver Subscriber ID:[id number] Payer ID:[id number] Group ID:Not on file Type:Medicare Address: [employer] [address] [place] [id number] [facility] MEDICARE REPLACEMENT MEDICARE PART A & B MEDICARE REPLACEMENT MEDICARE PART A & B MEDICARE REPLACEMENT MEDICARE PART A & B MEDICARE REPLACEMENT MEDICARE PART A & B MEDICARE REPLACEMENT MEDICARE PART A & B [facility] MEDICARE REPLACEMENT [place] [id number] MEDICARE PART A & B [facility] MEDICARE REPLACEMENT Care Teams Crib Pad Maker Relationship Specialty Start Date End Date Anaid Chakraborty MD [address] [place] [address] [place] [address] PCP - General Internal Medicine 10/04/21 Additional Source Comments The information contained in this document represents components of the legal health record. It is not the complete legal health record.[facility]
--- OUTSIDE RECORDS SUMMARY | 2025-01-26 17:55 | XMS_ITS | Patient Health Record ---
Author Organization [facility] Address [address] [address] Care Team Providers Care Neurology Director Name Role Phone JUAN PABLOXiomara BOOKER Primary Care Provider Allergies Allergen (clinical drug ingredient) Drug/Non Drug Allergy documented on EMR Reaction Allergy Type Onset Date Status Substance with 8-lsmsmoj-1-methylgluta ryl-coenzyme A reductase inhibitor mechanism of action [...] Notes Problem Obesity due to excess calories (623037011) Other obesity due to excess calories (E66.09) Active confirmed Problem Mixed hyperlipidemia (297240580) Mixed hyperlipidemia (E78.2) Active confirmed Problem Fatty liver (622001225) Fatty (change of) liver, not elsewhere classified (K76.0) Active confirmed Problem Essential hypertension (71854590) Essential (primary) hypertension (I10) Active confirmed Encounters Encounter Location Date Provider Diagnosis [facility] [address] [facility] [address] [place] [address] 02/04/2024 JHONY DELGADO Other obesity due to [...] Name Order Date LIPID PANEL 03/05/2023 Albumin/Creatinine Ratio,Urine-[id number] TSH+Free [id number] 02/04/2024 Lipid Panel-[id number] 02/04/2024 Comp. Metabolic Panel [id number] 2023 Future Test Test Name Order Date 25OH VITAMIN D 01/31/2023 COMPREHENSIVE METABOLIC PANEL 01/31/2023 MICROALBUMIN, URINE 01/31/2023 TSH 01/31/2023 Insurance Providers Payer Name Payer Address Payer Phone Subscriber Number Group Number Insured Name Patient Relationship to Insured Coverage Start Date Coverage End Date [employer] Medicare [address] [address] [place] [address] [id number] COLE VIVEROS Self - patient is the insured Medical (General) History Medical History History ICD Code hypertension, benign hyperlipidemia Headaches Abdominal LUQ PAIN SEE Dr Jordan Surgical History Surgery Date(Month/Year) Tuboplasty
--- OUTSIDE RECORDS SUMMARY | 2025-01-26 17:56 | XMS_ITS | Patient Health Record ---
Author Organization [facility] Address [address] [place] [address] Care Team Providers Care Cutter And Presser Name Role Phone NONE, NONE Primary Care Provider Julien Johnson Jr Allergies No Known Allergies Results Component Value Reference Range Notes Blood Urea Nitrogen Reviewed date:03/03/2024 04:20:51 PM Interpretation: Performing Lab:[facility], [address] [place] [phone] Notes/Report: Blood Urea Nitrogen 14 9-16 mg/dL Creatinine Reviewed date:03/03/2024 04:20:45 PM Interpretation: Performing Lab:[facility], [address] [place] [phone] Notes/Report: Creatinine 1.41 0.5-1.4 mg/dL Estimated Glomerular Filt Rate 37 Chronic Kidney Disease: Estimated GFR < 60 mL/min/1.73m2 Severe Kidney Disease: Estimated GFR < 15 mL/min/1.73m2 Complete Blood Count no Diff Reviewed date:03/06/2024 09:17:57 AM Interpretation: Performing Lab:[facility], [address] [place] [phone] Notes/Report: White Blood Count 9.9 4.8-10.8 X10*3/uL [...] Panel Reviewed date:03/06/2024 09:17:50 AM Interpretation: Performing Lab:[facility], [address] [place] [phone] Notes/Report: Bilirubin Total 0.3 0.0-1.0 mg/dL Bilirubin Direct 0.1 0.0-0.5 mg/dL Aspartate Amino Transferase 28 5-31 U/L Alanine Aminotransferase 22 0-31 U/L Total Protein 6.9 6.5-8.0 g/dL Albumin Level 3.8 3.5-5.0 g/dL Alkaline Phosphatase 80 39-117 U/L Lipase Reviewed date:03/06/2024 09:17:44 AM Interpretation: Performing Lab:[facility], [address] [place] [phone] Notes/Report: Lipase 35 8-78 U/L CT abdomen pelvis w con Reviewed date:03/06/2024 09:18:01 AM Interpretation: Performing Lab: Notes/Report: [address] [address] [place] Scan Report Signed Patient: Joan Viveros MR#: [id number] 4 : 1955 Acct:[id number] Age/Sex: 68 / F ADM Date: 03/05/24 Loc: HO.CT Attending Dr: Julien Jordan MD Ordering Physician: Julien Jordan MD Date of Service: 03/05/24 Procedure(s): CT abdomen pelvis w IV con Accession Number(s): [id number] cc: Julien Jordan MD EXAMINATION: CT ABDOMEN [...] signed by Sophia Peguero in OV> 03/05/24 1768 DD/ 1305 TD/TT: 03/05/24 1314 Traveling Operator: Reason For Referral No Information Medications Medication [...] Notes Problem Flatulence, eructation and gas pain (415774229) Bloating (R14.0) Active confirmed Problem Weight loss (010421580) Weight loss (R63.4) Active confirmed Problem Right upper quadrant pain (340895691) Right upper quadrant pain (R10.11) Active confirmed Problem Generalized abdominal pain (988903562) Generalized abdominal pain (R10.84) Active confirmed Problem Fatty liver (841655197) Fatty liver (K76.0) Active confirmed Problem Laboratory test result abnormal (103473063) Elevated lipase (R74.8) Active confirmed Problem Right upper quadrant pain (577916315) RUQ pain (R10.11) Active confirmed Problem Right sided abdominal pain (497032131) Right sided abdominal pain (R10.9) Active confirmed Vital Signs Temperature 97.7 degrees Fahrenheit 01/14/2025 Blood pressure diastolic 01 mm Hg 01/14/2025 Height 65 in 01/14/2025 Blood pressure systolic 001 mm Hg 01/14/2025 Weight 175.8 lbs 01/14/2025 BMI 29.25 kg/m2 01/14/2025 Encounters Encounter Location Date Provider Diagnosis [facility] [address] [place] [address] 01/14/2025 Julien Jordan Jr Generalized abdominal pain R10.84 ; Fatty liver K76.0 and Encounter for screening for malignant neoplasm of colon Z12.11 [facility] [address] [place] [address] 02/08/2024 [facility] [address] [place] [address] 02/14/2024 Julien Jordan Jr [facility] [address] [place] [address] 02/19/2024 Julien Jordan Jr Right sided abdominal pain R10.9 [facility] [address] [place] [address] 03/03/2024 Julien Jordan Jr [facility] [address] [place] [address] 03/06/2024 Julien Jordan Jr Assessments Encounter Date [...] exercise, weight loss, and avoidance of alcohol. 02/19/2024 Right sided abdominal pain (ICD-10 - [...] COLONOSCOPY 01/14/2025 Next Appt Details Provider Name:Julien lee , 01/30/2025 11:20:00 AM, [address] [place] [address] , [place], [place], [phone], Insurance Providers Payer Name Payer Address Payer Phone Subscriber Number Group Number Insured Name Patient Relationship to Insured Coverage Start Date Coverage End Date [facility] [address] [address] [place] [address] [id number] JOAN VIVEROS Self - patient is the insured Medical (General) History Medical History History ICD Code Erosive gastritis, EGD 03/21, omeprazole x8 weeks, no BE or HP. Colonoscopy 03/21, tubular adenoma, five -year followup 03/26. Hypertension Included cholesterol Surgical History Surgery Date(Month/Year) right shoulder arthroplasty 1985
--- OUTSIDE RECORDS SUMMARY | 2025-01-26 17:56 | XMS_ITS | Clinical Summary ---
Author Organization [facility] Address [address] [place] [address] Care Team Providers Care Home Health Aide Caregiver Name Role Phone Daxa Harrison MD Primary [...] Description 02/16/2025 10:30 AM EST Consult [facility] [address] [facility] [address] [place] [phone] Jacque Garza PA-C [address] [place] [id number] Health Maintenance Due Date Last Done Comments [...] Most Recently Relevant to Health [place] [address] [phone] [place] [id number] Care Teams Home Health Aide Caregiver Relationship Specialty Start Date End Date Daxa Harrison MD PCP - General 05/28/18
--- OUTSIDE RECORDS SUMMARY | 2025-01-26 17:56 | XMS_ITS | Clinical Summary ---
Author Organization [facility] it[facility] Address [address] [place] [address] Care Team Providers Care Yarn Skeins Examiner Name Role Phone Boo Ochoa MD Primary Care Provider [phone] Medical History Medical History Date Comments Cancer [...] age to complete this topic Care Teams Yarn Skeins Examiner Relationship Specialty Start Date End Date Boo Ochoa MD [address] [place] [address] PCP - General Internal Medicine 08/27/19
== END 2025-01-26 14:19 | disposition home or self-care (01) ==
LOC: HO.LAB 14:18
PROVIDERS: Visit Provider Internal Medicine Cardiovascular Disease
DX: R00.2 Palpitations (principal); R07.9 Chest pain, unspecified
CPT/HCPCS: 36415; 80048; 80061; 83718; 83880; 84450; 84460; 85025

== ENCOUNTER 2025-01-30 09:26 | Day surgery (SDC) | payer MEDICARE, SELFPAY ==
--- OUTSIDE RECORDS SUMMARY | 2025-01-14 17:12 | XMS_ITS | Continuity of Care Document ---
Author Organization [facility] [address] [place] [address] Phone [phone] Care Team Providers Care Industrial Garage Servicer Name Role Phone Anaid Chakraborty Care Team Information Agricultural Pilot [phone] Problems Active Problems Provider Date Hypercholesterolemia Shahid [...] SIG Qnty Indications Ordering Provider Date Amlodipine Giswbiqq1bs Tablets Take 1 Tablet By Mouth Every Day Eric Saavedra MD Carvedilol3.125mg Tablets Take 1 Tablet By Mouth Twice A Day Must Take With Meal Food Eric Saavedra MD Atorvastatin Nurdwvp93iy Tablets Take 1 Tablet By Mouth Everyday AT Bedtime Eric Saavedra MD Cramilkmv71qg Tablets Take One Tablet By Mouth Every Day Eric Saavedra MD Vital Signs Date Vital Result Comment 05/17/2022 9:11am BP Systolic 140 mmHg BP Diastolic 90 mmHg Heart Rate 72 /min Height 64 inches 5'4 Weight 174.00 lb BMI (Body Mass Index) 29.9 kg/m2 Results Test Acquired Date Facility Test Result H/L Range N ote Free T4 05/17/2022 [facility] Free T4 1.03 ng/dL (0.70-1.80 ) TSH 05/17/2022 [facility] TSH 2.00 uIU/mL (0.4-4.2) Prolactin 05/17/2022 [facility] Prolactin 8.4 NG/ML (4.8-23.3) Testosterone, Total 05/17/2022 [facility] Testosterone, Total 24 1 Dhea Sulfate 05/17/2022 [facility] Dhea Sulfate 139.0 g/dL (9-246) FSH 05/17/2022 [facility] FSH 92.1 MIU/ML 2 LH 05/17/2022 [facility] LH 56.6 MIU/ML 3 1 Unit: ng/dL (NOTE) This test was developed and its performance characteristics determined by [facility]. It has not been cleared or approved by the Food and Drug Administration. Reference Range: Adult Females Premenopausal 10 - 55 Postmenopausal 7 - 40 Test performed by [facility] [address] [place] [id number] 2 Reference Range: Follicular: 3.5-12.5 mIU/mL Ovulation: [...]
--- OUTSIDE RECORDS SUMMARY | 2025-01-14 17:12 | XMS_ITS | Clinical Summary ---
Author Organization [facility] Address [address] [place] [address] Care Team Providers Care Hot Mill Tin Roller Name Role Phone Boo Ochoa MD Primary Care Provider [phone] Medical History Medical History Date Comments Cancer [...] age to complete this topic Care Teams Hot Mill Tin Roller Relationship Specialty Start Date End Date Boo Ochoa MD [address] [place] [address] PCP - General Internal Medicine 08/27/19
--- OUTSIDE RECORDS SUMMARY | 2025-01-14 17:12 | XMS_ITS | Patient Health Record ---
Author Organization [facility] Address [address] [place] [address] Care Team Providers Care Thermo Cementing Folder Operator Name Role Phone NONE, NONE Primary Care Provider Julien Johnson Jr [phone] Allergies No Known Allergies Results Component Value Reference Range Notes Complete Blood Count no Diff Reviewed date:01/24/2024 07:43:21 AM Interpretation: Performing Lab:[facility], [address] [place] [phone] Notes/Report: White Blood Count 8.9 4.8-10.8 X10*3/uL [...] Panel Reviewed date:01/24/2024 07:43:35 AM Interpretation: Performing Lab:[facility], [address] [place] [phone] Notes/Report: Bilirubin Total 0.5 0.0-1.0 mg/dL Bilirubin Direct 0.2 0.0-0.5 mg/dL Aspartate Amino Transferase 26 5-31 U/L Alanine Aminotransferase 21 0-31 U/L Total Protein 7.0 6.5-8.0 g/dL Albumin Level 3.8 3.5-5.0 g/dL Alkaline Phosphatase 87 39-117 U/L Lipase Reviewed date:01/24/2024 07:43:47 AM Interpretation: Performing Lab:[facility], [address] [place] [phone] Notes/Report: Lipase 43 8-78 U/L US abdomen complete Reviewed date:02/14/2024 08:35:33 AM Interpretation: Performing Lab: Notes/Report: [address] [place] [address] Ultrasound Report Signed Patient: Joan Viveros MR#: [id number] 4 : 1955 Acct:[id number] Age/Sex: 68 / F ADM Date: 01/23/24 Loc: HO.US Attending Dr: Julien Jordan MD Ordering Physician: Julien Jordan MD Date of Service: 01/23/24 Procedure(s): US abdomen complete Accession Number(s): [id number] cc: Julien Jordan MD; Leandro Greene MD EXAMINATION: US ABDOMEN COMPLETE CLINICAL INFORMATION: [...] by: Agusto Egan MD 02/13/2024 10:39 AM [facility] Dictated By: Agusto Egan MD Signed By: <Electronically signed by Agusto Egan MD in OV> 02/13/24 1039 DD/ TD/TT: 01/23/24 0952 Copper Plater: Blood Urea Nitrogen Reviewed date:03/03/2024 04:20:51 PM Interpretation: Performing Lab:[facility], [address] [place] [phone] Notes/Report: Blood Urea Nitrogen 14 9-16 mg/dL Creatinine Reviewed date:03/03/2024 04:20:45 PM Interpretation: Performing Lab:[facility], [address] [place] [phone] Notes/Report: Creatinine 1.41 0.5-1.4 mg/dL Estimated Glomerular Filt Rate 37 Chronic Kidney Disease: Estimated GFR < 60 mL/min/1.73m2 Severe Kidney Disease: Estimated GFR < 15 mL/min/1.73m2 Complete Blood Count no Diff Reviewed date:03/06/2024 09:17:57 AM Interpretation: Performing Lab:[facility], [address] [place] [phone] Notes/Report: White Blood Count 9.9 4.8-10.8 X10*3/uL [...] Panel Reviewed date:03/06/2024 09:17:50 AM Interpretation: Performing Lab:[address] [address] Notes/Report: Bilirubin Total 0.3 0.0-1.0 mg/dL Bilirubin Direct 0.1 0.0-0.5 mg/dL Aspartate Amino Transferase 28 5-31 U/L Alanine Aminotransferase 22 0-31 U/L Total Protein 6.9 6.5-8.0 g/dL Albumin Level 3.8 3.5-5.0 g/dL Alkaline Phosphatase 80 39-117 U/L Lipase Reviewed date:03/06/2024 09:17:44 AM Interpretation: Performing Lab:[address] [address] Notes/Report: Lipase 35 8-78 U/L CT abdomen pelvis w con Reviewed date:03/06/2024 09:18:01 AM Interpretation: Performing Lab: Notes/Report: [address] [address] [address] Scan Report Signed Patient: Joan Viverso MR#: [id number] 4 : 1955 Acct:[id number] Age/Sex: 68 / F ADM Date: 03/05/24 Loc: HO.CT Attending Dr: Julien Jordan MD Ordering Physician: Julien Jordan MD Date of Service: 03/05/24 Procedure(s): CT abdomen pelvis w IV con Accession Number(s): [id number] cc: Julien Jordan MD EXAMINATION: CT ABDOMEN [...] 03/05/24 2148 DD/ 1305 TD/TT: 03/05/24 1314 Copper Plater: Reason For Referral No Information Medications Medication SIG (Take, Route, Frequency, Duration) Notes Start Date End Date Status Multivitamin Adult A ctive amLODIPine Besy-Benazepril HCl 5-10 MG as directed Orally Active Ezetimibe 10 MG Oral; Duration: 30 Active Immunizations Vaccine Route Administration Date Status Comme nts Influenza Unknown 03/19/2020 Refused Influenza Unknown 02/27/2022 Refused Influenza Unknown 01/15/2023 Refused Influenza Unknown 01/14/2025 Refused Social History Tobacco Use: Social History [...] Problem Status W/U Status Risk Notes Problem Flatulence, eructation and gas pain (155990854) Bloating (R14.0) Active confirmed Problem Weight loss (028287300) Weight loss (R63.4) Active confirmed Problem Right upper quadrant pain (782916963) Right upper quadrant pain (R10.11) Active confirmed Problem Generalized abdominal pain (569052426) Generalized abdominal pain (R10.84) Active confirmed Problem Fatty liver (876427970) Fatty liver (K76.0) Active confirmed Problem Laboratory test result abnormal (484279401) Elevated lipase (R74.8) Active confirmed Problem Right upper quadrant pain (798214229) RUQ pain (R10.11) Active confirmed Problem Right sided abdominal pain (760747171) Right sided abdominal pain (R10.9) Active confirmed Vital Signs Temperature 97.7 degrees Fahrenheit 01/14/2025 Blood pressure diastolic 01 mm Hg 01/14/2025 Height 65 in 01/14/2025 Blood pressure systolic 001 mm Hg 01/14/2025 Weight 175.8 lbs 01/14/2025 BMI 29.25 kg/m2 01/14/2025 Encounters Encounter Location Date Provider Diagnosis [facility] [address] [facility] [place] [address] 01/14/2025 Julien Jordan Jr Generalized abdominal pain R10.84 ; Fatty liver K76.0 and Encounter for screening for malignant neoplasm of colon Z12.11 [facility] [address] [place] [address] 01/16/2024 Julien Jordan Jr Right upper quadrant pain R10.11 and Fatty liver K76.0 [facility] [address] [facility] [place] [address] 01/24/2024 Julien Jordan Jr [facility] [address] [place] [address] [address] 02/08/2024 Julien Jordan Jr [facility] [address] [facility] [place] [address] 02/14/2024 Julien Jordan Jr [facility] [address] [place], [place] [address] [address] 02/19/2024 Julien Jordan Jr Right sided abdominal pain R10.9 [facility] [address] [place], [place] [address], [place] [address] 03/03/2024 Julien Jordan Jr [facility] [address] [place], [place] [address] [address] 03/06/2024 Julien Jordan Jr Assessments Encounter Date Diagnosis (ICD Code) Assessment Notes Treatment Notes Treatment Clinical Notes Section Notes 01/14/2025 Generalized abdominal pain (ICD-10 - R10.84) We discussed her symptoms today. We have recommended a trial of hyoscyamine for her abdominal pain. She will have further evaluation with upper endoscopy and colonoscopy because of her symptoms. She understands risks and benefits of the procedures and agrees to proceed. Fatty liver is stable and she has normal liver function tests. We encouraged low-fat diet, exercise, weight loss, and avoidance of alcohol. 01/16/2024 Right upper quadrant pain (ICD-10 - [...] Right sided abdominal pain (ICD-10 - R10.9) 01/14/2025 Fatty liver (ICD-10 - K76.0) We discussed her symptoms today. We have recommended a trial of hyoscyamine for her abdominal pain. She will have further evaluation with upper endoscopy and colonoscopy because of her symptoms. She understands risks and benefits of the procedures and agrees to proceed. Fatty liver is stable and she has normal liver function tests. We encouraged low-fat diet, exercise, weight loss, and avoidance of alcohol. 01/14/2025 Encounter for screening for malignant neoplasm of colon (ICD-10 - Z12.11) We discussed her symptoms today. We have recommended a trial of hyoscyamine for her abdominal pain. She will have further evaluation with upper endoscopy and colonoscopy because of her symptoms. She understands risks and benefits of the procedures and agrees to proceed. Fatty liver is stable and she has normal liver function tests. We encouraged low-fat diet, exercise, weight loss, and avoidance of alcohol. Plan Of Treatment Pending Test Test Name Order Date BUN 02/19/2024 BUN 02/08/2023 CREATININE 02/08/2023 CREATININE 02/19/2024 LIVER PROFILE 01/16/2024 LIVER PROFILE 03/19/2020 LIVER PROFILE 01/15/2023 LIVER PROFILE 02/19/2024 LIVER PROFILE 10/11/2020 LIPASE 02/19/2024 LIPASE 10/11/2020 LIPASE 01/16/2024 LIPASE [...] Date UPPER GI ENDOSCOPY 03/19/2020 COLONOSCOPY 03/19/2020 UPPER GI ENDOSCOPY 01/14/2025 COLONOSCOPY 01/14/2025 Next Appt Details Provider Name:Julien Que lee Jr, 01/30/2025 11:20:00 AM, [address] [place] [address] , [place], [place], [id number], Insurance Providers Payer Name Payer Address Payer Phone Subscriber Number Group Number Insured Name Patient Relationship to Insured Coverage Start Date Coverage End Date [facility] [address] [place] [address] [id number] JOAN VIVEROS Self - patient is the insured Medical (General) History Medical History History ICD Code Erosive gastritis, EGD 03/21, omeprazole x8 weeks, no BE or HP. Colonoscopy 03/21, tubular adenoma, five -year followup 03/26. Hypertension Included cholesterol Surgical History Surgery Date(Month/Year) right shoulder arthroplasty 1985
--- OUTSIDE RECORDS SUMMARY | 2025-01-14 17:12 | XMS_ITS | Patient Health Record ---
Author Organization [facility] Address [address] [place] [address] Care Team Providers Care Bed Machine Operator Name Role Phone JHONY DELGADO Primary Care Provider [phone] Allergies Allergen (clinical drug ingredient) Drug/Non Drug Allergy documented on EMR Reaction Allergy Type Onset Date Status Substance with 3-awakbkj-9-methylgluta ryl-coenzyme A reductase inhibitor mechanism of action [...] Notes Problem Obesity due to excess calories (224040830) Other obesity due to excess calories (E66.09) Active confirmed Problem Mixed hyperlipidemia (980939227) Mixed hyperlipidemia (E78.2) Active confirmed Problem Fatty liver (665529062) Fatty (change of) liver, not elsewhere classified (K76.0) Active confirmed Problem Essential hypertension (31818481) Essential (primary) hypertension (I10) Active confirmed Encounters Encounter Location Date Provider Diagnosis [facility] [address] [facility] [address] [place] [address] 01/24/2024 JHONY DELGADO [facility] [address] [facility] [address] [place] [address] 02/04/2024 JHONY DELGADO Other obesity due to [...] Name Order Date LIPID PANEL 03/05/2023 Albumin/Creatinine Ratio,Urine-[id number] TSH+Free [id number] 02/04/2024 Lipid Panel-[id number] 02/04/2024 Comp. Metabolic Panel [id number] 2023 Future Test Test Name Order Date 25OH VITAMIN D 01/31/2023 COMPREHENSIVE METABOLIC PANEL 01/31/2023 MICROALBUMIN, URINE 01/31/2023 TSH 01/31/2023 Insurance Providers Payer Name Payer Address Payer Phone Subscriber Number Group Number Insured Name Patient Relationship to Insured Coverage Start Date Coverage End Date [employer] Medicare [address] [address] [place] [address] [id number] COLE VIVEROS Self - patient is the insured Medical (General) History Medical History History ICD Code hypertension, benign hyperlipidemia Headaches Abdominal LUQ PAIN SEE Dr Jordan Surgical History Surgery Date(Month/Year) Tuboplasty
--- OUTSIDE RECORDS SUMMARY | 2025-01-14 17:12 | XMS_ITS | Encounter Summary ---
Author Organization [facility] Address [address] [facility] [address] [place] [address] Phone Care Team Providers Care Estimate Clerk Name Role Phone Anaid Chakraborty MD Primary Care Provider Encounter Details Date Type Department Care Team ([facility] st Contact Info) Description 08/29/2023 Telephone [facility] [address] [address] Yan Almonte PA-C [address] [place] [address] [email or web address] Social History Tobacco Use Types [...] on filedocumented in this encounter Care Teams Estimate Clerk Relationship Specialty Start Date End Date Anaid Chakraborty MD [address] [place] [address] Dr [place], SARAH [address] PCP - General Internal Medicine 10/04/21 documented as of this encounter Additional Source Comments The information contained in this document represents components of the legal health record. It is not the complete legal health record.[facility]
--- OUTSIDE RECORDS SUMMARY | 2025-01-14 17:12 | XMS_ITS | Clinical Summary ---
Author Organization [facility] Address [address] [place] [address] Care Team Providers Care Electronic Installer Name Role Phone Boo Ochoa MD Primary Care Provider Allergies No known active allergies Medications Medication [...] age to complete this topic Care Teams Electronic Installer Relationship Specialty Start Date End Date Boo Ochoa MD [address] [place] [address] PCP - General Internal Medicine 08/27/19
--- OUTSIDE RECORDS SUMMARY | 2025-01-14 17:12 | XMS_ITS | Clinical Summary ---
Author Organization [facility] Address [address] [place] [address] Care Team Providers Care Wet End Helper Name Role Phone Daxa Harrison MD Primary [...] Description 02/16/2025 10:30 AM EST Consult [facility] [address] [facility] [address] [place] [address] Jacque Garza PA-C [address] [place] [address] Health Maintenance Due Date Last Done Comments [...] - 2023-2 5 season) 2024 RSV Vaccine 50 years and older and Patients (1 - [...] to Health Maintenance Insurance [phone] [place] [id number] Care Teams Wet End Helper Relationship Specialty Start Date End Date Daxa Harrison MD PCP - General 05/28/18
--- OUTSIDE RECORDS SUMMARY | 2025-01-14 17:12 | XMS_ITS | Clinical Summary ---
Author Organization [facility] Address [address] [place] [address] Phone Care Team Providers Care It Senior Software Engineer Java Name Role Phone Anaid Chakraborty MD Primary [...] VACCINE (#1) 2024 COVID-19 VACCINE ( - 2024-2 6 season) 2024 RSV VACCINE (1 - 1-dose [...] file Insurance MEDICARE PART A & B [facility] MEDICARE REPLACEMENT MEDICARE PART A & B Member Subscriber Plan / Payer (Ef fective 2019-Present) Name:Joan Oliver Member ID:[id number] Relation to Subscriber:Self Name:Joan Oliver Subscriber ID:[id number] Payer ID:[id number] Group ID:Not on file Type:Medicare Address: [employer] [address] MEDICARE REPLACEMENT MEDICARE PART A & B Member Subscriber Plan / Payer (Ef fective 2019-Present) Name:Joan Oliver Member ID:[id number] Relation to Subscriber:Self Name:Joan Oliver Subscriber ID:[id number] Payer ID:[id number] Group ID:Not on file Type:Medicare Address: [employer] [address] [place] [id number] [facility] MEDICARE REPLACEMENT MEDICARE PART A & B MEDICARE REPLACEMENT MEDICARE PART A & B MEDICARE REPLACEMENT MEDICARE PART A & B MEDICARE REPLACEMENT MEDICARE PART A & B MEDICARE REPLACEMENT MEDICARE PART A & B [facility] MEDICARE REPLACEMENT [place] [id number] MEDICARE PART A & B [facility] MEDICARE REPLACEMENT Care Teams It Senior Software Engineer Java Relationship Specialty Start Date End Date Anaid Chakraborty MD [address] [place] [address] [place] [address] PCP - General Internal Medicine 10/04/21 Additional Source Comments The information contained in this document represents components of the legal health record. It is not the complete legal health record.[facility]
--- NOTE | 2025-01-28 09:59 | HO.ANESPROP2 ---
Documented by User: Rashmi Ballesteros NP 01/28/25 09:59 HPI - Anesthesia Eval Consult details Narrative: 69yo F for Upper Endoscopy and Colonoscopy PMF Active Problems Active Problems: All Active Problems Abdominal pain in female patient (Acute) Biliary colic (Acute) Hyperlipidemia (Acute) Essential hypertension (Acute) Strain of muscle of pelvis (Acute) Muscle spasm of back (Acute) Lumbar spondylosis (Acute) Lumbar back pain with radiculopathy affecting right lower extremity (Acute) Sciatica (Acute) Osteoarthritis of hands, bilateral (Acute) Frequent headaches (Acute) Chest discomfort (Acute) Palpitations (Acute) Varicose veins of right lower extremity with inflammation (Acute) Menopause (Acute) Early satiety (Acute) Well woman exam (Acute) Past Medical History Medical History (Updated 01/28/25 @ 13:51 by Ary Hamilton, BOUBACAR) Fatty liver Essential hypertension Hyperlipidemia Family History Family History Maternal Aunt Breast CA Brother Stroke Mother Stroke Rheumatoid arthritis Surgical History Surgical History (Updated 01/30/25 @ 09:57 by Tiffanie Holloway RN) Status post cryoablation Biliary colic History of post-sterilization tuboplasty History of arthroplasty of right shoulder Social History Social History Household Members: None Housing: House Alcohol intake: current Alcohol intake frequency: holidays/special occasions only Patient Tobacco Use Status: Never used Tobacco Use of substances other than those prescribed or required for medical reasons: No Are you DNR?: No Advance Directives: No Advance Directives Information Provided: Yes Current occupational status: employed and retired 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 Sexual orientation: Straight/Heterosexual Gender identity: Female Meds Allergies Allergy/AdvReac Type Severity Reaction Status Date / Time atorvastatin Allergy Intermediate Rash Verified 01/30/25 10:24 red yeast rice Allergy Rash Verified 01/30/25 10:24 Assessment and Plan Assessment Anesthesia Assessment: Chart Reviewed Documented by User: Ton De Jesus MD 01/30/25 10:52 [facility] Past Medical History Medical History (Updated 01/28/25 @ 13:51 by Ary Hamilton, BOUBACAR) Fatty liver Essential hypertension Hyperlipidemia Family History Family History Maternal Aunt Breast CA Brother Stroke Mother Stroke Rheumatoid arthritis Family history of problems with anesthesia: No Surgical History Surgical History (Updated 01/30/25 @ 09:57 by Tiffanie Holloway, BOUBACAR) Status post cryoablation Biliary colic History of post-sterilization tuboplasty History of arthroplasty of right shoulder History of Problems with Anesthesia: No Social History Social History Household Members: None Housing: House Alcohol intake: current Alcohol intake frequency: holidays/special occasions only Patient Tobacco Use Status: Never used Tobacco Use of substances other than those prescribed or required for medical reasons: No Are you DNR?: No Advance Directives: No Advance Directives Information Provided: Yes Current occupational status: employed and retired 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 Sexual orientation: Straight/Heterosexual Gender identity: Female Meds Allergies Allergy/AdvReac Type Severity Reaction Status Date / Time atorvastatin Allergy Intermediate Rash Verified 01/30/25 10:24 red yeast rice Allergy Rash Verified 01/30/25 10:24 Exam Airway Mallampati Class: II TM Dist: <=3cm Neck ROM: Full Loose/Missing/Broken Teeth: No Heart: ok Lungs: ok Assessment and Plan Assessment Anesthesia Assessment: Anesthesia Plan Discussed Final Anesthetic Review Family History of Problems with Anesthesia: No History of Problems with Anesthesia: No NPO: Yes ASA Class: II Final Preanesthetic Review: No Changes in Pt Med Stat, Meds/Allgs Chart Reviewed, Consent Obtained/Reviewed and Anes Risks/Benef Reviewed Patient Risk: Intermediate Procedure Risk: Intermediate Anesthetic Plan Anesthetic Plan: Agree w/ Assess. and Plan and TIVA Disposition: Standard PACU
[2025-01-28 13:51] VITALS: BMI 29.3
[2025-01-30 09:57] VITALS: BMI 28.4
[2025-01-30 10:19] VITALS: BP 164/81; PULSE 84; RESP 15; TEMP 36.9; O2SAT 97
[2025-01-30] MEDS: Lactated Ringers 1,000 ML 100 ML IVCONT (10:23)
--- NOTE | 2025-01-30 10:55 | MHC.SHP ---
Pre-Procedural Eval Section A - 24 Hr Update-Section A only Date of Service: 01/30/25 Section B - Complete if H&P > 30 days Chief Complaint: screening,Epigastric pain Details of Present Illness: see H&P no changes Relevant Family History (Specify if Yes): No Relevant Social History: None Present Medications: see Short Stay Collaborative assessment Medical History: No relevant PMH Allergies: Allergies Allergy/AdvReac Type Severity Reaction Status Date / Time atorvastatin Allergy Intermediate Rash Verified 01/30/25 10:24 red yeast rice Allergy Rash Verified 01/30/25 10:24 Review of Systems Sugical H&P ROS: Negative: Constitution, Cardiovascular, Respiratory, Neurological, Psychiatric, Hem-Onc, Allergic/Immunologic, Gastrointestinal, Genitourinary, Musculoskeletal, Integumentary, Endocrine and Eyes/Ears/Nose/Throat Exam Surgical H&P Exam: Normal: HEENT, Normal: Heart, Normal: Lungs, Normal: Extremities, Normal: Abdomen, Normal: Skin and Normal: Neurological Plan Diagnosis/Plan: Unchanged I have reviewed the history and physical and performed a pertinent physical examination on my patient. No changes have occurred unless specified. Time Spent With Patient Time: Total time managing care of this patient today ____ minutes.
[2025-01-30 11:40] VITALS: BP 141/80; PULSE 71; RESP 16; TEMP 36.2; O2SAT 94
[2025-01-30 11:45] VITALS: BP 141/80; PULSE 71; RESP 16; O2SAT 95
[2025-01-30 11:50] VITALS: BP 161/88; PULSE 77; RESP 16; O2SAT 99
[2025-01-30 12:04] VITALS: BP 142/78; PULSE 75; RESP 16; TEMP 36.1; O2SAT 98
--- NOTE | 2025-01-30 22:28 | OP_ITS ---
DATE OF SERVICE: 01/30/2025 SURGEON: Julien Jordan MD INDICATIONS: 1. Abdominal pain. 2. Colon cancer screening. PREOPERATIVE DIAGNOSIS: POSTOPERATIVE DIAGNOSIS: PROCEDURE PERFORMED: Upper endoscopy with biopsy, colonoscopy to the terminal ileum with biopsy and snare polypectomy. ESTIMATED BLOOD LOSS: COMPLICATIONS: ANESTHESIA: Monitored anesthesia care. ASSISTANTS: SPECIMENS: DESCRIPTION OF PROCEDURE: A history and physical was performed. The risks and benefits of the procedure were explained to the patient, and informed consent was obtained. The patient was placed in the left lateral decubitus position. The Olympus video gastroscope was introduced into the esophagus, stomach, and duodenum. Examination was performed. The scope was removed. She was repositioned for colonoscopy. A digital rectal exam was performed and was found to be normal. The Olympus pediatric video colonoscope was introduced into the rectum and advanced to the cecum. The cecum was identified by transillumination, palpation, and identification of ileocecal valve. Examination was performed. The scope was removed. She tolerated both procedures well and was returned to the recovery area in stable condition. FINDINGS: Upper endoscopy: 1. Esophagus: The esophagus was normal. There was no esophagitis. Biopsies were obtained from the EG junction. 2. Stomach: The stomach showed a single erosion in the antrum with some surrounding gastritis. Biopsies were obtained from the antrum to evaluate for H pylori. 3. Duodenum: The bulb and 2nd portion were normal. Biopsies were obtained from the 2nd portion. Colonoscopy: The terminal ileum was examined and appeared normal. This was biopsied. The visualized colonic mucosa was normal. There was no evidence of colitis. Random biopsies were obtained from the right colon and sigmoid. In the cecum was a 12 x 7 mm polyp, which was removed with a hot snare and recovered via suction. Retroflexed examination showed moderate-sized internal hemorrhoids. IMPRESSION: 1. Erosive gastritis. 2. Colon polyp. RECOMMENDATION: Follow up the biopsy results. MD NELLY Erickson/SHELDON / [phone]
== END 2025-01-30 13:47 | disposition home or self-care (01) ==
PROVIDERS: Visit Provider Internal Medicine Gastroenterology
PROC: (CPT 45385; principal; 2025-01-30 11:20)
DX: Z12.11 Encounter for screening for malignant neoplasm of colon (principal); Z86.0101 Personal history of adenomatous and serrated colon polyps; D12.0 Benign neoplasm of cecum; K64.8 Other hemorrhoids; R10.13 Epigastric pain; K29.60 Other gastritis without bleeding; K76.0 Fatty (change of) liver, not elsewhere classified; I10 Essential (primary) hypertension; E78.5 Hyperlipidemia, unspecified; Z79.899 Other long term (current) drug therapy; Z88.8 Allergy status to other drugs, medicaments and biological substances; Z98.890 Other specified postprocedural states
CPT/HCPCS: 45385; 45380; 43239; 88305; 88313; 88342; J2003; J2704

== ENCOUNTER 2025-02-04 09:54 | Outpatient (REF) | payer MEDICARE, SELFPAY | END 2025-02-04 09:55 | disposition home or self-care (01) | LOC: HO.LNP 09:54 | PROVIDERS: Visit Provider Obstetrics & Gynecology | DX: Z01.419 Encounter for gynecological examination (general) (routine) without abnormal findings (principal); Z78.0 Asymptomatic menopausal state; Z11.51 Encounter for screening for human papillomavirus (HPV); Z79.899 Other long term (current) drug therapy | CPT/HCPCS: 87626; 88175; 99397 ==

== ENCOUNTER 2025-02-04 09:54 | Outpatient (AMB) | payer MEDICARE, SELFPAY ==
--- OUTSIDE RECORDS SUMMARY | 2025-01-30 06:20 | XMS_ITS ---
Author Organization [facility] Address [address] [place] [address] Care Team Providers Care Transitional Living Specialist Name Role Phone NONE, NONE Primary Care Provider Julien Johnson Jr REASON FOR VISIT abd pain, screening colon Encounters Encounter Location Date Provider Diagnosis [facility] Outpatient [address] [place] [phone] 01/30/2025 Julien Jordan Jr Plan Of Treatment No Information Progress Notes * COEL VIVEROS MDOB:[birth year] (69 yo F)Acc No.[id number]:01/30/2025 EGD and COL/MAC Patient: COLE TURNER Provider: Reji Jodran MD :1955 A ge:69 Y S ex:Female Date:01/30/2025 Address:[facility] [address] [id number] Subjective: * Chief Complaints: * 1 . Abd pain, screening colon. * Medical History: Objective: * Vitals: Assessment: Plan: * Treatment: * * The named appointment provid er may or may not be the originator of this progress note, and it is not deemed complete until electronically signed by the appointment provider. Sign off status: Pending * Provider: Reji Jordan MD Date: Generated for Filemon quesada/Tatyana/eTkristieitting on: 04/06/2024 11:17 AM EST
--- NOTE | 2025-02-04 10:09 | A.OFFVIS_ITS ---
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 c/o urine smelling like ammonia. she wants to have her pap done . Roofing Foreman Required: No Information Interpreted: non-clinical & clinical Orthotics Technician: Orthotics Technician Present (jeimy) Accompanied by: Self / Same As Patient Allergies atorvastatin Allergy (Intermediate, Verified 02/04/25 10:15) Rash red yeast rice Allergy (Verified 02/04/25 10:15) Rash Medication List - Last Reconciled 02/04/25 by Quynh Francisco LPN amlodipine 5 mg PO DAILY ezetimibe (Zetia) 10 mg PO DAILY Do you need a note to return to daycare/school/sports/work: No HPI Comments Details: Presenting for annual exam. No complaints. Last Pap/HPV was negative in 11/22 Last Mammogram was BI-RADS 1 in 07/25 Last Colonoscopy was in 01/24 Last DEXA scan was in 04/26 [facility] Medical History Fatty liver Essential hypertension Hyperlipidemia Surgical History Status post cryoablation Biliary colic History of post-sterilization tuboplasty History of arthroplasty of right shoulder Family History Maternal Aunt Breast CA Brother Stroke Mother Stroke Rheumatoid arthritis Social History Household Members: None Housing: House Alcohol intake: current Alcohol intake frequency: holidays/special occasions only Patient Tobacco Use Status: Never used Tobacco Current occupational status: employed and retired 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 Sexual orientation: Straight/Heterosexual Gender identity: Female Female Reproductive History Menstrual Age of Menarche: 10 control method: permanent sterilization Menopause type: natural Total pregnancies: 2 Number of Living Children: 2 Date of last pap smear: 11/14/22 History of abnormal pap smear: No Date of Mammogram: 07/14/24 Review of Systems Const All systems reviewed & are unremarkable except as noted in HPI and below Card Reports as per HPI Resp Reports as per HPI GI Reports as per HPI and Reports no additional complaints Reports as per HPI Physical Exam Vital Signs: Last Vital Signs BP 132/74 02/04/25 10:12 BMI result Body Mass Index 31.0 Const General: cooperative, healthy appearing and comfortable Chest Chest palpation & inspection: normal inspection of the chest and normal palpation of entire chest wall Breast/axilla inspection: normal inspection of the breasts and normal inspection of the axillae Breast/axilla palpation: normal palpation of the breasts, normal palpation of the axillae and no axillary lymphadenopathy Resp Effort & Inspection: normal respiratory effort Auscultation: clear to auscultation bilaterally Percussion: percussion normal Cardio Palpation: normal PMI Rate: regular rate Rhythm: regular rhythm Heart sounds: no murmurs and no rubs Peripheral pulses: Peripheral pulses 2+ throughout GI Inspection: Yes normal to inspection Palpation (GI): Soft to palpation, nontender, no guarding, not rigid and No hepatosplenomegaly present Percussion: Yes normal to percussion Auscultation: normal bowel sounds Rectal Exam - Female: deferred General: Yes bladder normal to palpation External Female Exam: No lesion Speculum Exam - Vagina: normal appearance of the vagina, normal palpation, normal vaginal discharge and not erythematous Speculum Exam - Cervix: normal appearance of the cervix and normal palpation Bimanual exam- vagina & uterus: normal bimanual exam, normal palpation, uterine size normal, bladder normal to palpation, consistency normal and normal palpation Bimanual Exam- Adnexa, other: normal adnexae, no masses and no tenderness Assessment & Plan Assessment & Plan (1) Well woman exam: Code(s): Z01.419 - Encounter for gynecological examination (general) (routine) without abnormal findings Category: Medical Plan: Co testing not indicated . Co testing done per patient's request explained to the patient that ASCCP guidelines do not recommended repeat Co testing this year, the patient verbalized understanding Counseled the patient about the recommended dietary allowance of 1200 mg of Calcium & 800 IU of vitamin D. Instructions given to patient to schedule next screening Mammogram in 07/26. The patient was instructed to perform monthly self-breast exams and to schedule an annual exam in a year; All questions answered and the patient verbalized understanding. Coding Level of Care Code Est Pt Prev Care >65y(84235) Diagnoses Well woman exam Z01.419
[2025-02-04 10:12] VITALS: BP 132/74; BMI 31.0
--- OUTSIDE RECORDS SUMMARY | 2025-02-04 11:17 | XMS_ITS | Clinical Summary ---
Author Organization [facility] Address [address] [place] [address] Phone Care Team Providers Care Low Voltage Technician Name Role Phone Anaid Chakraborty MD Primary [...] at Not on file Legal Sex Female 3:38 PM EDT Gender [...] file Insurance MEDICARE PART A & B [facility] MEDICARE REPLACEMENT MEDICARE PART A & B Member Subscriber Plan / Payer (Ef fective 2019-) Name:Joan Oliver Member ID:[id number] Relation to Subscriber:Self Name:Joan Oliver Subscriber ID:[id number] Payer ID:[id number] Group ID:Not on file Type:Medicare Address: [facility] [employer] [facility] [address] MEDICARE REPLACEMENT MEDICARE PART A & B MEDICARE REPLACEMENT MEDICARE PART A & B MEDICARE REPLACEMENT MEDICARE PART A & B Member Subscriber Plan / Payer (Ef fective 2019-Present) Name:Joan Oliver Member ID:[id number] Relation to Subscriber:Self Name:Joan Oliver Subscriber ID:[id number] Payer ID:[id number] Group ID:Not on file Type:Medicare Address: [employer] [address] [place] [id number] [place] [address] MEDICARE REPLACEMENT MEDICARE PART A & B MEDICARE REPLACEMENT MEDICARE PART A & B MEDICARE REPLACEMENT MEDICARE PART A & B [facility] MEDICARE REPLACEMENT MEDICARE PART A & B [facility] MEDICARE REPLACEMENT Care Teams Low Voltage Technician Relationship Specialty Start Date End Date Anaid Chakraborty MD [address] [place] [address] [place] [phone] PCP - General Internal Medicine 10/04/21 Additional Source Comments The information contained in this document represents components of the legal health record. It is not the complete legal health record.[facility]
--- OUTSIDE RECORDS SUMMARY | 2025-02-04 11:17 | XMS_ITS | Encounter Summary ---
Author Organization [facility] Address [address] [place] [address] Phone Care Team Providers Care Gauntlet Pairer Name Role Phone Anaid Chakraborty MD Primary Care Provider Encounter Details Date Type Department Care Team ([facility] st Contact Info) Description 08/29/2023 Telephone [facility] [address] [address] Yan Almonte PA-C [address] [place] [id number] [email or web address] [...] on filedocumented in this encounter Care Teams Gauntlet Pairer Relationship Specialty Start Date End Date Anaid Chakraborty MD [address] [place] [address] [place] [phone] PCP - General Internal Medicine 10/04/21 documented as of this encounter Additional Source Comments The information contained in this document represents components of the legal health record. It is not the complete legal health record.[facility]
--- OUTSIDE RECORDS SUMMARY | 2025-02-04 11:17 | XMS_ITS | Continuity of Care Document ---
Author Organization [facility] [address] [place] [address] Phone [phone] Care Team Providers Care Egg Crater Name Role Phone Anaid Chakraborty Care Team Information Garden Implement Mechanic [phone] Problems Active Problems Provider Date Hypercholesterolemia Shahid [...] SIG Qnty Indications Ordering Provider Date Amlodipine Dxwtsgfu6ug Tablets Take 1 Tablet By Mouth Every Day Eric Saavedra MD Carvedilol3.125mg Tablets Take 1 Tablet By Mouth Twice A Day Must Take With Meal Food Eric Saavedra MD Atorvastatin Uclotlw60yp Tablets Take 1 Tablet By Mouth Everyday AT Bedtime Eric Saavedra MD Fwwrlfjpn34kw Tablets Take One Tablet By Mouth Every Day Eric Saavedra MD Vital Signs Date Vital Result Comment 05/17/2022 9:11am BP Systolic 140 mmHg BP Diastolic 90 mmHg Heart Rate 72 /min Height 64 inches 5'4 Weight 174.00 lb BMI (Body Mass Index) 29.9 kg/m2 Results Test Acquired Date Facility Test Result H/L Range N ote Free T4 05/17/2022 [facility] Free T4 1.03 ng/dL (0.70-1.80 ) TSH 05/17/2022 [facility] TSH 2.00 uIU/mL (0.4-4.2) Prolactin 05/17/2022 [facility] Prolactin 8.4 NG/ML (4.8-23.3) Testosterone, Total 05/17/2022 [facility] Testosterone, Total 24 1 Dhea Sulfate 05/17/2022 [facility] Dhea Sulfate 139.0 g/dL (9-246) FSH 05/17/2022 [facility] FSH 92.1 MIU/ML 2 LH 05/17/2022 [facility] LH 56.6 MIU/ML 3 1 Unit: ng/dL (NOTE) This test was developed and its performance characteristics determined by [facility]. It has not been cleared or approved by the Food and Drug Administration. Reference Range: Adult Females Premenopausal 10 - 55 Postmenopausal 7 - 40 Test performed by [facility] [address] [place] [address] 2 Reference Range: Follicular: 3.5-12.5 mIU/mL Ovulation: [...]
--- OUTSIDE RECORDS SUMMARY | 2025-02-04 11:17 | XMS_ITS | Patient Health Record ---
Author Organization [facility] Address [address] [place] [address] Care Team Providers Care Hvac R Instructor Name Role Phone JHONY DELGADO Primary Care Provider Allergies Allergen (clinical drug ingredient) Drug/Non Drug Allergy documented on EMR Reaction Allergy Type Onset Date Status Substance with 0-bvkfyuw-6-methylgluta ryl-coenzyme A reductase inhibitor mechanism of action [...] Notes Problem Obesity due to excess calories (944665231) Other obesity due to excess calories (E66.09) Active confirmed Problem Mixed hyperlipidemia (520222160) Mixed hyperlipidemia (E78.2) Active confirmed Problem Fatty liver (933923721) Fatty (change of) liver, not elsewhere classified (K76.0) Active confirmed Problem Essential hypertension (14881202) Essential (primary) hypertension (I10) Active confirmed Plan Of Treatment Pending Test Test Name Order Date LIPID PANEL 03/05/2023 Albumin/Creatinine Ratio,Urine-[id number] TSH+Free [id number] 02/04/2024 Lipid Panel-[id number] 02/04/2024 Comp. Metabolic Panel [id number] 2023 Future Test Test Name Order Date 25OH VITAMIN D 01/31/2023 COMPREHENSIVE METABOLIC PANEL 01/31/2023 MICROALBUMIN, URINE 01/31/2023 TSH 01/31/2023 Insurance Providers Payer Name Payer Address Payer Phone Subscriber Number Group Number Insured Name Patient Relationship to Insured Coverage Start Date Coverage End Date [employer] [address] [address] [place] [address] [id number] COLE VIVEROS Self - patient is the insured Medical (General) History Medical History History ICD Code hypertension, benign hyperlipidemia Headaches Abdominal LUQ PAIN SEE Dr Jordan Surgical History Surgery Date(Month/Year) Tuboplasty
--- OUTSIDE RECORDS SUMMARY | 2025-02-04 11:18 | XMS_ITS | Clinical Summary ---
Author Organization [facility] ity Address [address] [place] [address] Care Team Providers Care Construction Project Coordinator Name Role Phone Boo Ochoa MD Primary Care Provider Medical History Medical History Date Comments Cancer [...] age to complete this topic Care Teams Construction Project Coordinator Relationship Specialty Start Date End Date Boo Ochoa MD [address] [place] [address] PCP - General Internal Medicine 08/27/19
--- OUTSIDE RECORDS SUMMARY | 2025-02-04 11:18 | XMS_ITS | Clinical Summary ---
Author Organization [facility] Address [address] [place] [address] Care Team Providers Care Assistant County Engineer Name Role Phone Daxa Harrison MD Primary Care Provider [phone] Social History Tobacco Use Types Packs/Day Years [...] new suspicious ultrasound finding Daxa Harrison MD IM MAMMOGRAPHY ORDERABLES F inal Result from Last 3 Months or Most Recently Relevant to Health Maintenance Insurance Care Teams Assistant County Engineer Relationship Specialty Start Date End Date Daxa Harrison MD PCP - General 05/28/18
--- OUTSIDE RECORDS SUMMARY | 2025-02-04 11:18 | XMS_ITS | Patient Health Record ---
Author Organization [facility] Address [address] [place] [address] Care Team Providers Care Typo Machine Operator Name Role Phone NONE, NONE Primary Care Provider Julien Johnson Jr Allergies No Known Allergies Results Component Value Reference Range Notes Blood Urea Nitrogen Reviewed date:03/03/2024 04:20:51 PM Interpretation: Performing Lab:[facility], [address] [place] [phone] Notes/Report: Blood Urea Nitrogen 14 9-16 mg/dL Creatinine Reviewed date:03/03/2024 04:20:45 PM Interpretation: Performing Lab:[facility], [address] [place] [phone] Notes/Report: Creatinine 1.41 0.5-1.4 mg/dL Estimated Glomerular Filt Rate 37 Chronic Kidney Disease: Estimated GFR < 60 mL/min/1.73m2 Severe Kidney Disease: Estimated GFR < 15 mL/min/1.73m2 Complete Blood Count no Diff Reviewed date:03/06/2024 09:17:57 AM Interpretation: Performing Lab:[facility], [address] [place] [phone] Notes/Report: White Blood Count 9.9 4.8-10.8 X10*3/uL [...] Panel Reviewed date:03/06/2024 09:17:50 AM Interpretation: Performing Lab:[facility], [address] [place] [phone] Notes/Report: Bilirubin Total 0.3 0.0-1.0 mg/dL Bilirubin Direct 0.1 0.0-0.5 mg/dL Aspartate Amino Transferase 28 5-31 U/L Alanine Aminotransferase 22 0-31 U/L Total Protein 6.9 6.5-8.0 g/dL Albumin Level 3.8 3.5-5.0 g/dL Alkaline Phosphatase 80 39-117 U/L Lipase Reviewed date:03/06/2024 09:17:44 AM Interpretation: Performing Lab:[facility], [address] [place] [phone] Notes/Report: Lipase 35 8-78 U/L CT abdomen pelvis w con Reviewed date:03/06/2024 09:18:01 AM Interpretation: Performing Lab: Notes/Report: [address] [address] [address] Scan Report Signed Patient: Joan Viveros MR#: [id number] 4 : 1955 Acct:[id number] Age/Sex: 68 / F ADM Date: 03/05/24 Loc: HO.CT Attending Dr: Julien Jordan MD Ordering Physician: Julien Jordan MD Date of Service: 03/05/24 Procedure(s): CT abdomen pelvis w IV con Accession Number(s): [id number] cc: Julien Jordan MD EXAMINATION: CT ABDOMEN [...] signed by Sophia Peguero in OV> 03/05/24 3758 DD/ 1305 TD/TT: 03/05/24 1314 Resort Host: Pathology Reviewed date:02/03/2025 04:12:40 PM Interpretation: Performing Lab:[facility], [address] [place] [phone] Notes/Report: Reason For Referral No Information Medications Medication SIG (Take, Route, Frequency, Duration) Notes Start Date End Date Status Multivitamin Adult A ctive amLODIPine Besy-Benazepril HCl 5-10 MG as directed Orally Active Ezetimibe 10 MG Oral; Duration: 30 Active Omeprazole 40 MG 1 capsule 1/2 to 1 h our before morning meal Orally Once a day; Duration: 30 days 02/03/2025 Active Immunizations Vaccine Route Administration Date Status [...] Notes Problem Flatulence, eructation and gas pain (863684897) Bloating (R14.0) Active confirmed Problem Weight loss (013968375) Weight loss (R63.4) Active confirmed Problem Right upper quadrant pain (716957118) Right upper quadrant pain (R10.11) Active confirmed Problem Generalized abdominal pain (941080999) Generalized abdominal pain (R10.84) Active confirmed Problem Fatty liver (535604896) Fatty liver (K76.0) Active confirmed Problem Laboratory test result abnormal (521243965) Elevated lipase (R74.8) Active confirmed Problem Right upper quadrant pain (693833680) RUQ pain (R10.11) Active confirmed Problem Right sided abdominal pain (719054249) Right sided abdominal pain (R10.9) Active confirmed Vital Signs Temperature 97.7 degrees Fahrenheit 01/14/2025 Blood pressure diastolic 01 mm Hg 01/14/2025 Height 65 in 01/14/2025 Blood pressure systolic 001 mm Hg 01/14/2025 Weight 175.8 lbs 01/14/2025 BMI 29.25 kg/m2 01/14/2025 Encounters Encounter Location Date Provider Diagnosis [facility] Outpatient [address] [facility] [place] [id number] 01/30/2025 Julien Jordan Jr [facility] [address] [place] [phone] 01/14/2025 Julien Jordan Jr Generalized abdominal pain R10.84 ; Fatty liver K76.0 and Encounter for screening for malignant neoplasm of colon Z12.11 [facility] [address] [place] [phone] 02/03/2025 Julien Jordan Jr [facility] [address] [place] [phone] 02/08/2024 Julien Jordan Jr [facility] [address] [place] [phone] 02/14/2024 Julien Jordan Jr [facility] [address] [place] [phone] 02/19/2024 Julien Jordan Jr Right sided abdominal pain R10.9 [facility] [address] [place] [phone] 03/03/2024 Julien Jordan Jr [facility] [address] [place] [phone] 03/06/2024 Julien Jordan Jr Assessments Encounter Date [...] 02/19/2024 CREATININE 02/08/2023 CREATININE 02/19/2024 LIVER PROFILE 01/16/2024 [...] 03/19/2020 UPPER GI ENDOSCOPY 01/14/2025 COLONOSCOPY 01/14/2025 Insurance Providers Payer Name Payer Address Payer Phone Subscriber Number Group Number Insured Name Patient Relationship to Insured Coverage Start Date Coverage End Date [facility] [address] [address] [place] [id number] JOAN VIVEROS Self - patient is the insured Medical (General) History Medical History History ICD Code Erosive gastritis, EGD 03/21, omeprazole x8 weeks, no BE or HP. Colonoscopy 03/21, tubular adenoma, five -year followup 03/26. Hypertension Included cholesterol Surgical History Surgery Date(Month/Year) right shoulder arthroplasty 1986
--- OUTSIDE RECORDS SUMMARY | 2025-02-04 11:18 | XMS_ITS | Clinical Summary ---
Author Organization [facility] Address [address] [place] [address] Care Team Providers Care Senior Database Administrator Name Role Phone Boo Ochoa MD Primary Care Provider [phone] Allergies No known active allergies Medications Medication [...] age to complete this topic Care Teams Senior Database Administrator Relationship Specialty Start Date End Date Boo Ochoa MD [address] [place] [address] PCP - General Internal Medicine 08/27/19
== END 2025-02-04 10:47 | disposition home or self-care (01) ==
LOC: HO.HWS 09:55
PROVIDERS: Visit Provider Obstetrics & Gynecology
DX: Z01.419 Encounter for gynecological examination (general) (routine) without abnormal findings (principal)
CPT/HCPCS: 99397; 99459